=== PATIENT | male | born 1955 | race Caucasian/White ===

== ENCOUNTER 2022-02-23 17:41 | Inpatient (IN) | payer MEDICARE, OTHER ==
[2022-02-23] MEDS ORDERED: DUONEB 0.5-3 MG/3 ml Neb IH ONE ×4 (17:49→18:42)
[2022-02-23 18:33] LABS: INR 1.24 (0.8-3.0); PROTIME 12.9 SECONDS (9.4-12.5); PTT 31.3 SECONDS (25.1-36.5)
[2022-02-23 18:35] LABS: Absolute Neutrophil Ct (ANC) 17.65 x10^3/uL (1.4-6.9); Basophil (Absolute #) 0.04 x10^3/uL (0-0.4); Eosinophil (Absolute #) 0 x10^3/uL (0-0.5); Hematocrit 60.9 % (42-50); Hemoglobin 18.5 g/dL (12.5-18.0); Lymphocyte (Absolute #) 0.43 x10^3/uL (1.0-4.6); Lymphocytes % 2.2 % (24.0-44.0); Mean Cell Volume 88.8 fL (78-100); Mean Corpuscular Hgb Concent. 30.4 g/dL (32-36); Mean Platelet Volume 9.7 fL (7.5-11.0); Monocyte (Absolute #) 1.33 x10^3/uL (0.0-1.3); Monocytes % 6.8 % (0.0-12.0); Neutrophil % 90.3 % (36.0-66.0); Platelet Count 207 x10^3/uL (150-450); Red Blood Count 6.86 x10^6/uL (4.1-5.6); Red Cell Distribution Width 15.2 % (11.5-14.0); White Blood Count 19.5 x10^3/uL (4.0-10.5)
[2022-02-23] MEDS ORDERED: solu-MEDROL 125 MG, Sterile H2O 10 ml 2 ML IV ONE ×2 (18:38)
[2022-02-23 18:40] LABS: ALBUMIN 4.2 g/dL (3.5-5.0); ALKALINE PHOSPHATASE 113 U/L (38-126); ANION GAP 10.1 MEQ/L (5-15); BLOOD UREA NITROGEN 18 mg/dL (9-20); CHLORIDE 94 mmol/L (98-107); Calcium 9.3 mg/dL (8.4-10.2); Carbon Dioxide 31 mmol/L (22-30); Creatinine 1 1.01 mg/dL (0.66-1.25); EST GLOMERULAR FILTRATION RATE > 60.0 ML/MIN; Glucose 142 mg/dL (74-106); MAGNESIUM 1.8 mg/dL (1.6-2.3); NT PRO BNP 543 pg/mL (0-900); Potassium 4.7 mmol/L (3.5-5.1); SGOT/AST 37 U/L (17-59); SGPT/ALT 25 U/L (0-50); SODIUM 131 mmol/L (137-145); Total Protein 8.6 g/dL (6.3-8.2)
[2022-02-23] MEDS ORDERED: Sterile H2O 10 ml IJ ONE (18:40)
[2022-02-23] MEDS ORDERED: solu-MEDROL ONE (18:40)
[2022-02-23 18:53] LABS: INFLUENZA A NEGATIVE (NEGATIVE); INFLUENZA B NEGATIVE (NEGATIVE); RESPIRATORY SYNCTIAL VIRUS NEGATIVE (Negative); SARS-CoV-2 Xpert Express NEGATIVE (NEGATIVE)
[2022-02-23 18:55] LABS: A-aADO2 237; ABG HEMOGLOBIN 18.6; ABG POTASSIUM 4.6 (3.5-5.1); ARTERIAL BLD GAS O2 SATURATION 93.4 % (95-100); ARTERIAL BLOOD GAS BASE EXCESS 5.8 (-2.0-2.0); ARTERIAL BLOOD GAS FIO2 50 %; ARTERIAL BLOOD GAS PCO2 43 mmHg (35-45); ARTERIAL BLOOD GAS PO2 66 mmHg (75-100); ARTERIAL BLOOD GAS pH 7.46 (7.35-7.45); CARBOXYHEMOGLOBIN 2.2 % THgb (0.0-6.9); HCO3- 30.6 (22-28); HGB O2 SAT 91.1 g/dF (94-100); Methhemoglobin 0.3 % (1.4-1.5)
[2022-02-23 18:56] LABS: ABG SITE RIGHT RADIAL; ALLEN TEST OK? YES
[2022-02-23] MEDS ORDERED: HOLD METFORMIN PRODUCTS FOR 48 HOURS MC SCH (20:15)
--- NOTE | 2022-02-23 21:24 | ERPHSYRPT ---
- History of Present Illness Source: patient Exam Limitations: other (Poor historian) Patient Subjective Stated Complaint: PT HERE FOR INCREASE SOB FOR A COUPLE DAYS WORSE TODAY. PT IS OUT OF SOME OF HES MEDS, HE DOES NOT CURRENTLY HAVE A DR. HAYS FEVER Triage Nursing Assessment: PT WALKED IN , SOB UNABLE TO LAY DOWN, RESP LABORED, PURSED LIP , 2-3 WORD SENTENCES, SKIN W/D/P.BS DIMINSHED THROUGHOUT Physician History: 66 yo wm w cc of dyspnea x 1 month which is getting worse, Pt hypoxic upon arrival and neb tx/O2 therapy started. Pt smokes 1 ppd. He denies fever and states that his chronic cough is a little worse. Pt denies N/V/D/melena/channing tochezia. He also denies chest pain. Timing/Duration: other (1 month worse today) Activities at Onset: rest Severity of Dyspnea-Max: severe Severity of Dyspnea-Current: severe Possible Cause: occasional episodes Modifying Factors: Improves With: activity Associated Symptoms: denies symptoms, cough Allergies/Adverse Reactions: No Known Drug Allergies Allergy (Unverified 02/23/22 17:45) Home Medications: No Reportable Medications [No Reported Medications] 02/23/22 [History] Hx Tetanus, Diphtheria Vaccination/Date Given: No Hx Influenza Vaccination/Date Given: Yes Hx Pneumococcal Vaccination/Date Given: No Immunizations Up to Date: Yes Travel Risk - International Travel Have you traveled outside of the country in past 3 weeks: No - Coronavirus Screening Are you exhibiting any of the following symptoms?: Yes Symptoms: Cough: New Onset, Shortness of Breath Close contact with a COVID-19 positive Pt in past 14-21 Days: No - Vaccine Status Have you recieved a Covid-19 vaccination: Yes Sample Tailor: Unknown - Vaccination Dates Date of 2cond Vaccination (if applicable): 2020 Dates if Unknown: ? - Review of Systems Constitutional: No Symptoms, Lethargy, Malaise Eyes: No Symptoms Ears, Nose, & Throat: No Symptoms Respiratory: No Symptoms, Cough, Dyspnea, Dyspnea on Exertion (DEUTSCH) Cardiac: No Symptoms Abdominal/Gastrointestinal: No Symptoms Genitourinary Symptoms: No Symptoms Musculoskeletal: No Symptoms Skin: No Symptoms Neurological: No Symptoms Psychological: No Symptoms Endocrine: No Symptoms Hematologic/Lymphatic: No Symptoms Immunological/Allergic: No Symptoms - Past Medical History Pertinent Past Medical History: Yes Respiratory History: COPD Male Reproductive Disorders: Prostate Problems - Past Surgical History Past Surgical History: Yes - Social History Smoking Status: Current every day smoker Exposure to second hand smoke: Yes Drug Use: none Patient Lives Alone: No - Nursing Vital Signs Nursing Vital Signs: Initial Vital Signs Temperature 98.8 F 02/23/22 17:47 Pulse Rate 120 H 02/23/22 17:47 Respiratory Rate 34 H 02/23/22 17:47 Blood Pressure 124/85 02/23/22 17:47 O2 Sat by Pulse Oximetry 85 L 02/23/22 17:47 Pain Scale Pain Intensity 0 Tachy/tachypneic/hypoxic - Physical Exam General Appearance: moderate distress Eye Exam: PERRL/EOMI, eyes nml inspection Ears, Nose, Throat Exam: hearing grossly normal, normal ENT inspection, normal pharynx Neck Exam: normal inspection, non-tender, supple, full range of motion, No Brudzinski, No Kernig's, No meningismus Respiratory Exam: respiratory distress (Moderate), airway intact, diminished breath sounds, prolonged expirations, crackles/rales (Scattered wheezes and rales) Cardiovascular/Chest Exam: tachycardia, No murmur Abdominal/Gastrointestinal Exam: soft, normal bowel sounds, No tenderness Extremity Exam: non-tender, normal range of motion, normal inspection, normal capillary refill, no calf tenderness, no pedal edema Neurologic Exam: alert, oriented x 3, cooperative, 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, sensation nml Skin Exam: normal color, warm, dry Lymphatic Exam: No adenopathy SpO2 Interpretation: hypoxic (Hypoxic upon presentation) SpO2: 94 O2 Delivery: Nasal Cannula - Course Nursing assessment & vital signs reviewed: Yes EKG Interpreted by Me: RATE (Sinus tach/rate 115/Normal QT-QTc/Poor Rwave progression/Nonspecific ST-Twave changes/EKG#2 Sinus tach/Rate 106/Normal QT- QTc/Poor Rwave progression/Nonspecific ST-Twave changes/Both EKG's poor due to artifact) - Radiology Exams Chest X-ray Interpretation: Interpreted by me (CXR nothing acute) - CT Exams Chest CT Interpretation: Discussed w/radiologist (CTA of chest no PE/COPD/LLL pneumonia) Ordered Tests: Active Orders 24 hr Category Date Time Status Bedrest ROUTINE Activity 02/23/22 21:34 Active Code Status Order ROUTINE Care 02/23/22 21:34 Active EKG-ER Only STAT Care 02/23/22 17:45 Active IV Care Q6H Care 02/23/22 21:34 Active Intake and Output 09,13,18,21 Care 02/23/22 21:[address] in Observation ROUTINE Care 02/23/22 21:34 Active Reji Elizabeth, Apply ROUTINE Care 02/23/22 21:34 Active Vital Signs Q4H Care 02/23/22 21:34 Active Weight,Daily 0600 Care 02/23/22 21:34 Active NPO Diet 02/23/22 21:35 Active CHEST 1 VIEW (PORTABLE) Stat Exams 02/23/22 17:46 Taken CHEST WITH CONTRAST [CT] Stat Exams 02/23/22 19:39 Taken ABG [ARTERIAL BLOOD GASES] Stat Lab 02/23/22 18:50 Completed ARTERIAL BLOOD GASES AM.LAB Lab 02/24/22 04:00 Ordered BLOOD CULTURE Stat Lab 02/23/22 22:00 Received CBC AM.LAB Lab 02/24/22 04:00 Ordered CBC W DIFF Stat Lab 02/23/22 18:00 Completed CMP AM.LAB Lab 02/24/22 04:00 Ordered CMP Stat Lab 02/23/22 18:00 Completed D-DIMER QUANTITATIVE Stat Lab 02/23/22 18:55 Completed Lactic Acid Stat Lab 02/23/22 17:55 Completed MAGNESIUM Stat Lab 02/23/22 18:00 Completed NT PRO BNP Stat Lab 02/23/22 18:00 Completed PROTIME WITH INR Stat Lab 02/23/22 18:00 Completed PTT Stat Lab 02/23/22 18:00 Completed TROPONIN Q4H Lab 02/23/22 18:00 Completed TROPONIN Q4H Lab 02/23/22 21:55 Received TROPONIN Q4H Lab 02/24/22 02:00 Ordered BiPap/CPAP ROUTINE RT 02/23/22 19:37 Active Pulse Oximetry CONTINUOUS RT 02/23/22 21:35 Active Respiratory Therapy Consult ROUTINE RT 02/23/22 21:35 Active Transfer Order Routine Transfer 02/23/22 Ordered Medication Summary Generic Name Dose Route Start Last Admin Trade Name Freq PRN Reason Stop Dose Admin Albuterol/Ipratropium 3 ml 02/23/22 23:00 Ipratropium/Albuterol Sulfate 3 Ml Ampul.Neb 03/25/22 22:59 Q4HRT [facility] Enoxaparin Sodium 40 mg 02/24/22 10:00 Enoxaparin Sodium 40 Mg/0.4 Ml Syringe SQ 03/26/22 09:59 DAILY MANJULA Ceftriaxone Sodium/Dextrose 1 g in 50 mls @ 100 mls/hr 02/24/22 10:00 Rocephin 1 Gm-D5w 50 Ml Bag IV 02/27/22 09:59 Q24H10 MANJULA Azithromycin 500 mg in 250 mls @ 250 mls/hr 02/24/22 10:00 Zithromax 500 Mg/ 250 Ml Nacl Premix IV 03/26/22 09:59 Q24H10 MANJULA Discontinued Medications Generic Name Dose Route Start Last Admin Trade Name Freq PRN Reason Stop Dose Admin Albuterol/Ipratropium 3 ml 02/23/22 17:49 02/23/22 18:08 Ipratropium/Albuterol Sulfate 3 Ml Ampul.Neb 02/23/22 17:50 3 ml STAT ONE Administration Albuterol/Ipratropium Confirm 02/23/22 17:51 Ipratropium/Albuterol Sulfate 3 Ml Ampul.Neb Administered 02/23/22 17:52 Dose 3 ml IH .STK-MED ONE Albuterol/Ipratropium 3 ml 02/23/22 18:39 02/23/22 18:45 Ipratropium/Albuterol Sulfate 3 Ml Ampul.Neb 02/23/22 18:40 3 ml STAT ONE Administration Albuterol/Ipratropium Confirm 02/23/22 18:42 Ipratropium/Albuterol Sulfate 3 Ml Ampul.Neb Administered 02/23/22 18:43 Dose 3 ml IH .STK-MED ONE Methylprednisolone Sodium 0 mg 02/23/22 18:38 02/23/22 18:41 Succinate 125 mg/ Sterile IV 02/23/22 18:39 125 mg Water 2 ml STAT ONE Administration Ceftriaxone Sodium/Dextrose 1 g in 50 mls @ 100 mls/hr 02/23/22 21:30 02/23/22 22:17 Rocephin 1 Gm-D5w 50 Ml Bag IV 02/23/22 21:59 100 mls/hr STAT STA 100 mls/hr Administration Methylprednisolone Sodium Succinate Confirm 02/23/22 18:40 Methylprednis Sod Succ 125 Mg/2 Ml Vial Administered 02/23/22 18:41 Dose 125 mg .ROUTE .[employer] ONE Sterile Water Confirm 02/23/22 18:40 Water For Injection,Sterile 10 Ml Vial Administered 02/23/22 18:41 Dose 10 ml IJ .STK-MED ONE Lab/Rad Data: Laboratory Result Diagrams 02/23/22 18:00 02/23/22 18:00 Laboratory Results 02/23/22 02/23/22 02/23/22 Range/Units 18:55 18:50 18:00 WBC (4.0-10.5) x10^3/uL RBC (4.1-5.6) x10^6/uL Hgb (12.5-18.0) g/dL Hct (42-50) % MCV (78-100) fL MCH (26-32) pg MCHC (32-36) g/dL RDW (11.5-14.0) % Plt Count (150-450) x10^3/uL MPV (7.5-11.0) fL Gran % (36.0-66.0) % Immature Gran % (Auto) (0.00-0.4) % Nucleat RBC Rel Count (0.00-0.1) % Eos # (Auto) (0-0.5) x10^3/uL Immature Gran # (Auto) (0.00-0.03) x10^3u/L Absolute Lymphs (auto) (1.0-4.6) x10^3/uL Absolute Monos (auto) (0.0-1.3) x10^3/uL Absolute Nucleated RBC (0.00-0.01) x10^3u/L Lymphocytes % (24.0-44.0) % Monocytes % (0.0-12.0) % Eosinophils % (0.00-5.0) % Basophils % (0.0-0.4) % Absolute Granulocytes (1.4-6.9) x10^3/uL Basophils # (0-0.4) x10^3/uL PT (9.4-12.5) SECONDS INR (0.8-3.0) APTT (25.1-36.5) SECONDS D-Dimer 1.26 H* (0.0-0.50) mg/L Puncture Site RIGHT RADIAL pCO2 43 (35-45) mmHg pO2 66 L (75-100) mmHg Base Excess 5.8 H (-2.0-2.0) O2 Saturation 91.1 L (94-100) g/dF ABG pH 7.46 H (7.35-7.45) ABG HCO3 30.6 H* (22-28) ABG O2 Sat (Measured) 93.4 L (95-100) % Mikle Test YES A-a Gradient 237 a/A Ratio 0.22 Hemoglobin 18.6 Carboxyhemoglobin 2.2 (0.0-6.9) % THgb Methemoglobin 0.3 L (1.4-1.5) % Temperature 37.0 C POC O2 Flow Rate 50 % Sodium (137-145) mmol/L Potassium 4.6 (3.5-5.1) mmol/L Chloride (98-107) mmol/L Carbon Dioxide (22-30) mmol/L Anion Gap (5-15) MEQ/L BUN (9-20) mg/dL Creatinine (0.66-1.25) mg/dL Estimated GFR ML/MIN Glucose (74-106) mg/dL Lactic Acid (0.4-2.0) Calcium (8.4-10.2) mg/dL Magnesium (1.6-2.3) mg/dL Total Bilirubin (0.2-1.3) mg/dL AST (17-59) U/L ALT (0-50) U/L Alkaline Phosphatase (38-126) U/L Troponin I (0.000-0.034) ng/mL NT-Pro-B Natriuret Pep (0-900) pg/mL Serum Total Protein (6.3-8.2) g/dL Albumin (3.5-5.0) g/dL Influenza Type A Ag NEGATIVE (NEGATIVE) Influenza Type B Ag NEGATIVE (NEGATIVE) RSV (PCR) NEGATIVE (Negative) SARS-CoV-2 (PCR) NEGATIVE (NEGATIVE) Slides for Path Review 02/23/22 02/23/22 02/23/22 Range/Units 18:00 18:00 18:00 WBC (4.0-10.5) x10^3/uL RBC (4.1-5.6) x10^6/uL Hgb (12.5-18.0) g/dL Hct (42-50) % MCV (78-100) fL MCH (26-32) pg MCHC (32-36) g/dL RDW (11.5-14.0) % Plt Count (150-450) x10^3/uL MPV (7.5-11.0) fL Gran % (36.0-66.0) % Immature Gran % (Auto) (0.00-0.4) % Nucleat RBC Rel Count (0.00-0.1) % Eos # (Auto) (0-0.5) x10^3/uL Immature Gran # (Auto) (0.00-0.03) x10^3u/L Absolute Lymphs (auto) (1.0-4.6) x10^3/uL Absolute Monos (auto) (0.0-1.3) x10^3/uL Absolute Nucleated RBC (0.00-0.01) x10^3u/L Lymphocytes % (24.0-44.0) % Monocytes % (0.0-12.0) % Eosinophils % (0.00-5.0) % Basophils % (0.0-0.4) % Absolute Granulocytes (1.4-6.9) x10^3/uL Basophils # (0-0.4) x10^3/uL PT 12.9 H (9.4-12.5) SECONDS INR 1.24 (0.8-3.0) APTT 31.3 (25.1-36.5) SECONDS D-Dimer (0.0-0.50) mg/L Puncture Site pCO2 (35-45) mmHg pO2 (75-100) mmHg Base Excess (-2.0-2.0) O2 Saturation (94-100) g/dF ABG pH (7.35-7.45) ABG HCO3 (22-28) ABG O2 Sat (Measured) (95-100) % Mikel Test A-a Gradient a/A Ratio Hemoglobin Carboxyhemoglobin (0.0-6.9) % THgb Methemoglobin (1.4-1.5) % Temperature C POC O2 Flow Rate % Sodium 131 L (137-145) mmol/L Potassium 4.7 (3.5-5.1) mmol/L Chloride 94 L (98-107) mmol/L Carbon Dioxide 31 H (22-30) mmol/L Anion Gap 10.1 (5-15) MEQ/L BUN 18 (9-20) mg/dL Creatinine 1.01 (0.66-1.25) mg/dL Estimated GFR > 60.0 ML/MIN Glucose 142 H (74-106) mg/dL Lactic Acid (0.4-2.0) Calcium 9.3 (8.4-10.2) mg/dL Magnesium 1.8 (1.6-2.3) mg/dL Total Bilirubin 1.30 (0.2-1.3) mg/dL AST 37 (17-59) U/L ALT 25 (0-50) U/L Alkaline Phosphatase 113 (38-126) U/L Troponin I < 0.012 (0.000-0.034) ng/mL NT-Pro-B Natriuret Pep 543 (0-900) pg/mL Serum Total Protein 8.6 H (6.3-8.2) g/dL Albumin 4.2 (3.5-5.0) g/dL Influenza Type A Ag (NEGATIVE) Influenza Type B Ag (NEGATIVE) RSV (PCR) (Negative) SARS-CoV-2 (PCR) (NEGATIVE) Slides for Path Review 02/23/22 02/23/22 Range/Units 18:00 17:55 WBC 19.5 H (4.0-10.5) x10^3/uL RBC 6.86 H (4.1-5.6) x10^6/uL Hgb 18.5 H (12.5-18.0) g/dL Hct 60.9 H (42-50) % MCV 88.8 (78-100) fL MCH 27.0 (26-32) pg MCHC 30.4 L (32-36) g/dL RDW 15.2 H (11.5-14.0) % Plt Count 207 (150-450) x10^3/uL MPV 9.7 (7.5-11.0) fL Gran % 90.3 H (36.0-66.0) % Immature Gran % (Auto) 0.5 H (0.00-0.4) % Nucleat RBC Rel Count 0.0 (0.00-0.1) % Eos # (Auto) 0 (0-0.5) x10^3/uL Immature Gran # (Auto) 0.09 H (0.00-0.03) x10^3u/L Absolute Lymphs (auto) 0.43 L (1.0-4.6) x10^3/uL Absolute Monos (auto) 1.33 H (0.0-1.3) x10^3/uL Absolute Nucleated RBC 0.00 (0.00-0.01) x10^3u/L Lymphocytes % 2.2 L (24.0-44.0) % Monocytes % 6.8 (0.0-12.0) % Eosinophils % 0.0 (0.00-5.0) % Basophils % 0.2 (0.0-0.4) % Absolute Granulocytes 17.65 H (1.4-6.9) x10^3/uL Basophils # 0.04 (0-0.4) x10^3/uL PT (9.4-12.5) SECONDS INR (0.8-3.0) APTT (25.1-36.5) SECONDS D-Dimer (0.0-0.50) mg/L Puncture Site pCO2 (35-45) mmHg pO2 (75-100) mmHg Base Excess (-2.0-2.0) O2 Saturation (94-100) g/dF ABG pH (7.35-7.45) ABG HCO3 (22-28) ABG O2 Sat (Measured) (95-100) % Mikel Test A-a Gradient a/A Ratio Hemoglobin Carboxyhemoglobin (0.0-6.9) % THgb Methemoglobin (1.4-1.5) % Temperature C POC O2 Flow Rate % Sodium (137-145) mmol/L Potassium (3.5-5.1) mmol/L Chloride (98-107) mmol/L Carbon Dioxide (22-30) mmol/L Anion Gap (5-15) MEQ/L BUN (9-20) mg/dL Creatinine (0.66-1.25) mg/dL Estimated GFR ML/MIN Glucose (74-106) mg/dL Lactic Acid 1.8 (0.4-2.0) Calcium (8.4-10.2) mg/dL Magnesium (1.6-2.3) mg/dL Total Bilirubin (0.2-1.3) mg/dL AST (17-59) U/L ALT (0-50) U/L Alkaline Phosphatase (38-126) U/L Troponin I (0.000-0.034) ng/mL NT-Pro-B Natriuret Pep (0-900) pg/mL Serum Total Protein (6.3-8.2) g/dL Albumin (3.5-5.0) g/dL Influenza Type A Ag (NEGATIVE) Influenza Type B Ag (NEGATIVE) RSV (PCR) (Negative) SARS-CoV-2 (PCR) (NEGATIVE) Slides for Path Review YES - Progress Progress: improved Progress Note: 02/23/22 22:26 Duoneb x2 125mg IV Solumedrol Pt eventually placed on Bipap w improvement in respiratory status 02/23/22 22:27 Rocephin 1gm IV Discussed with Dr.: Marcos Will see patient in: hospital (observation) Counseled pt/family regarding: lab results, diagnosis, need for follow-up, rad results - Departure Departure Disposition: Observation Clinical Impression: Pneumonia Condition: Stable Critical Care Time: Yes Critical Care Time(excluding separately billable procedures): Critical 30-74 mins Referrals: TWILA MOY MD [Primary Care Provider] - Follow up/PCP as directed
[2022-02-23] MEDS ORDERED: ROCEPHIN 1 Gm-D5w 50 ml Bag** 1 G/50 ML IVPB IV STA (21:30)
[2022-02-23] MEDS ORDERED: ROCEPHIN 1 Gm-D5w 50 ml Bag** 1 G/50 ML IVPB IV ONE (22:12)
[2022-02-23 22:21] LABS: Slide Review 1 YES
[2022-02-23] MEDS ORDERED: DUONEB 0.5-3 MG/3 ml Neb IH SCH (23:00)
[2022-02-24] MEDS ORDERED: DUONEB 0.5-3 MG/3 ml Neb IH ONE (00:47)
[2022-02-24] MEDS: DUONEB 0.5-3 MG/3 ml Neb IH SCH ×4 (01:35→18:48)
[2022-02-24 02:47] LABS: Hematocrit 58.2 % (42-50); Hemoglobin 17.7 g/dL (12.5-18.0); Mean Cell Volume 87.7 fL (78-100); Mean Corpuscular Hemoglobin 26.7 pg (26-32); Mean Corpuscular Hgb Concent. 30.4 g/dL (32-36); Platelet Count 191 x10^3/uL (150-450); Red Blood Count 6.64 x10^6/uL (4.1-5.6); Red Cell Distribution Width 14.6 % (11.5-14.0); White Blood Count 16.5 x10^3/uL (4.0-10.5)
[2022-02-24 03:08] LABS: ALBUMIN 3.9 g/dL (3.5-5.0); ALKALINE PHOSPHATASE 100 U/L (38-126); ANION GAP 10.3 MEQ/L (5-15); BLOOD UREA NITROGEN 23 mg/dL (9-20); CHLORIDE 94 mmol/L (98-107); Calcium 9.2 mg/dL (8.4-10.2); Carbon Dioxide 30 mmol/L (22-30); Creatinine 1 0.95 mg/dL (0.66-1.25); EST GLOMERULAR FILTRATION RATE > 60.0 ML/MIN; Glucose 151 mg/dL (74-106); SGOT/AST 23 U/L (17-59); SGPT/ALT 24 U/L (0-50); SODIUM 130 mmol/L (137-145); Total Protein 8.1 g/dL (6.3-8.2)
[2022-02-24 05:49] LABS: A-aADO2 305; ABG HEMOGLOBIN 18.3; ABG POTASSIUM 4.6 (3.5-5.1); ABG SITE RIGHT RADIAL; ALLEN TEST OK? YES; ARTERIAL BLD GAS O2 SATURATION 98.8 % (95-100); ARTERIAL BLOOD GAS BASE EXCESS 5.2 (-2.0-2.0); ARTERIAL BLOOD GAS FIO2 70 %; ARTERIAL BLOOD GAS PCO2 55 mmHg (35-45); ARTERIAL BLOOD GAS PO2 125 mmHg (75-100); ARTERIAL BLOOD GAS pH 7.38 (7.35-7.45); HCO3- 32.5 (22-28); HGB O2 SAT 97.6 g/dF (94-100); Methhemoglobin 0.2 % (1.4-1.5)
--- NOTE | 2022-02-24 08:43 | XRAY ---
Indication: Dyspnea/short of breath. Comparison: December 24, 2012 Portable chest again hyperinflated with scattered tiny calcified granulomas. New left mid to lower lung interstitial alveolar opacities without consolidation/large effusion. Heart is not enlarged. Bony thorax intact. Comment: Left lung finding not reported by interpreting ER clinician. Left lung finding was reported to ordering clinician on same day CT PE exam.
--- NOTE | 2022-02-24 08:47 | XRAY ---
Indication: Short of breath. Dyspnea. Elevated d-dimer. Pulmonary embolus. Multiple contiguous images obtained through the chest using 100 cc Isovue 370 contrast and PE protocol. Comparison: None Good opacification of the pulmonary arteries. However mild respiration artifact limits evaluation of the more distal lobar and segmental segments. No pulmonary embolus. Heart not enlarged. Aorta is mildly arteriosclerotic without aneurysm/dissection. Small mediastinal and bilateral hilar calcified nodes. No pathologic lymphadenopathy. Lungs demonstrates moderate diffuse pulmonary emphysema with a few tiny scattered bilateral calcific granulomas. Left lower lobe and lesser degree lingula demonstrates interstitial alveolar opacities without effusion. Bony thorax intact. Limited upper abdomen demonstrates tiny hepatic/splenic calcified granulomas. Impression: 1. Respiration artifact. No obvious pulmonary embolus. 2. Lingula and left lower lobe pneumonia. 3. Chronic findings including pulmonary emphysema, arteriosclerotic disease, and old granulomatous disease.
[2022-02-24] MEDS ORDERED: FLUZONE HIGH-DOSE QUAD 2022-23 IM ONE ×2 (10:00→17:00)
[2022-02-24] MEDS: Zithromax 500 MG/ 250 ML NaCl Premix 500 MG/250 ML IVPB IV SCH (10:38)
--- NOTE | 2022-02-24 12:47 | PCM.HP ---
History of Present Illness - Chief Complaint Chief Complaint: severe shortness of breath for 2 days History of Present Illness: is a 66 year old male.cc of dyspnea x 1 month which is getting worse, Pt hypoxic upon arrival and neb tx/O2 therapy started. Pt smokes 1 ppd. He denies fever and states that his chronic cough is a little worse. Pt denies N/V/D/melena/hematochezia. He also denies chest pain. Timing/Duration: other (1 month worse today) Activities at Onset: rest Severity of Dyspnea-Max: severe Severity of Dyspnea-Current: severe Possible Cause: occasional episodes Modifying Factors: Improves With: activity Associated Symptoms: denies symptoms, cough - Review of Systems Constitutional: No Fever, No Chills Eyes: No Symptoms Ears, Nose, & Throat: No Symptoms Respiratory: Cough, Short Of Breath, Wheezing Cardiac: No Chest Pain, No Edema, No Syncope Abdominal/Gastrointestinal: No Abdominal Pain, No Nausea, No Vomiting, No Diarrh ea Genitourinary Symptoms: No Dysuria Musculoskeletal: No Back Pain, No Neck Pain Skin: No Rash Neurological: No Dizziness, No Focal Weakness, No Sensory Changes Psychological: No Symptoms Endocrine: No Symptoms Hematologic/Lymphatic: No Symptoms Immunological/Allergic: No Symptoms Medications & Allergies Home Medications: Home Medication List No Reportable Medications [No Reported Medications] 02/23/22 [History Confirmed 02/23/22] Allergies/Adverse Reactions: Allergies Allergy/AdvReac Type Severity Reaction Status Date / Time diazepam [From Valium] AdvReac Verified 02/24/22 00:16 - Past Medical History Past Medical History: Yes Neurological History: No Pertinent History ENT History: No Pertinent History Cardiac History: Myocardial Infarction ([place]) Respiratory History: COPD Endocrine Medical History: Diabetes Type II Musculoskelatal History: No Pertinent History GI Medical History: No Pertinent History History: No Pertinent History Pyscho-Social History: No Pertinent History Male Reproductive Disorders: Prostate Problems - Past Surgical History Past Surgical History: Yes Neuro Surgical History: No Pertinent History Cardiac History: No Pertinent History Respiratory Surgery: No Pertinent History GI Surgical History: No Pertinent History Genitourinary Surgical Hx: No Pertinent History Musculskeletal Surgical Hx: No Pertinent History Male Surgical History: No Pertinent History - Social History Smoking Status: Current every day smoker Exposure to second hand smoke: Yes Alcohol: None Drug Use: none - Physical Exam Vital Signs: Vital Signs - 24 hr Temp Pulse Resp BP Pulse Ox 02/24/22 11:53 97.7 F 97 H 24 135/70 100 02/24/22 07:16 97.7 F 78 16 130/74 92 L 02/24/22 05:45 91 H 31 H 100 02/24/22 03:36 97.0 F 98 H 35 H 159/80 100 02/24/22 01:43 89 24 96 02/24/22 01:35 96 02/23/22 23:57 97.4 F 93 H 24 127/69 95 02/23/22 22:28 94 L 02/23/22 21:35 102 H 138/73 98 02/23/22 21:00 95 H 26 H 136/73 95 02/23/22 20:00 109 H 28 H 139/92 94 L 02/23/22 19:23 107 H 27 H 138/78 93 L 02/23/22 18:51 114 H 32 H 134/108 92 L 02/23/22 18:45 108 H 28 H 92 L 02/23/22 18:09 113 H 32 H 96 02/23/22 17:50 32 H 95 02/23/22 17:47 98.8 F 120 H 34 H 124/85 85 L General Appearance: no apparent distress, alert Neurologic Exam: alert, oriented x 3, cooperative, normal mood/affect, nml cerebellar function, nml station & gait, sensation nml, No motor deficits Eye Exam: PERRL/EOMI, eyes nml inspection Ears, Nose, Throat Exam: normal ENT inspection, TMs normal, pharynx normal, moist mucous membranes Neck Exam: normal inspection, non-tender, supple, full range of motion Respiratory Exam: diminished breath sounds, crackles/rales, rhonchi, wheezing, No respiratory distress Cardiovascular Exam: regular rate/rhythm, normal heart sounds, normal peripheral pulses Gastrointestinal/Abdomen Exam: soft, normal bowel sounds, No tenderness, No mass Back Exam: normal inspection, normal range of motion, No CVA tenderness, No vertebral tenderness Extremity Exam: normal inspection, normal range of motion, pelvis stable Skin Exam: normal color, warm, dry, No rash Lymphatic Exam: No adenopathy Results - Labs Lab/Micro Results: Lab Results-Last 24 Hours 02/23/22 02/23/22 02/23/22 Range/Units 17:55 18:00 18:00 WBC 19.5 H (4.0-10.5) x10^3/uL RBC 6.86 H (4.1-5.6) x10^6/uL Hgb 18.5 H (12.5-18.0) g/dL Hct 60.9 H (42-50) % MCV 88.8 (78-100) fL MCH 27.0 (26-32) pg MCHC 30.4 L (32-36) g/dL RDW 15.2 H (11.5-14.0) % Plt Count 207 (150-450) x10^3/uL MPV 9.7 (7.5-11.0) fL Gran % 90.3 H (36.0-66.0) % Immature Gran % (Auto) 0.5 H (0.00-0.4) % Nucleat RBC Rel Count 0.0 (0.00-0.1) % Eos # (Auto) 0 (0-0.5) x10^3/uL Immature Gran # (Auto) 0.09 H (0.00-0.03) x10^3u/L Absolute Lymphs (auto) 0.43 L (1.0-4.6) x10^3/uL Absolute Monos (auto) 1.33 H (0.0-1.3) x10^3/uL Absolute Nucleated RBC 0.00 (0.00-0.01) x10^3u/L Lymphocytes % 2.2 L (24.0-44.0) % Monocytes % 6.8 (0.0-12.0) % Eosinophils % 0.0 (0.00-5.0) % Basophils % 0.2 (0.0-0.4) % Absolute Granulocytes 17.65 H (1.4-6.9) x10^3/uL Basophils # 0.04 (0-0.4) x10^3/uL PT (9.4-12.5) SECONDS INR (0.8-3.0) APTT (25.1-36.5) SECONDS D-Dimer (0.0-0.50) mg/L Puncture Site pCO2 (35-45) mmHg pO2 (75-100) mmHg Base Excess (-2.0-2.0) O2 Saturation (94-100) g/dF ABG pH (7.35-7.45) ABG HCO3 (22-28) ABG O2 Sat (Measured) (95-100) % Mikel Test A-a Gradient a/A Ratio Hemoglobin Carboxyhemoglobin (0.0-6.9) % THgb Methemoglobin (1.4-1.5) % Temperature C POC O2 Flow Rate % Sodium 131 L (137-145) mmol/L Potassium 4.7 (3.5-5.1) mmol/L Chloride 94 L (98-107) mmol/L Carbon Dioxide 31 H (22-30) mmol/L Anion Gap 10.1 (5-15) MEQ/L BUN 18 (9-20) mg/dL Creatinine 1.01 (0.66-1.25) mg/dL Estimated GFR > 60.0 ML/MIN Glucose 142 H (74-106) mg/dL Lactic Acid 1.8 (0.4-2.0) Calcium 9.3 (8.4-10.2) mg/dL Magnesium 1.8 (1.6-2.3) mg/dL Total Bilirubin 1.30 (0.2-1.3) mg/dL AST 37 (17-59) U/L ALT 25 (0-50) U/L Alkaline Phosphatase 113 (38-126) U/L Troponin I (0.000-0.034) ng/mL NT-Pro-B Natriuret Pep 543 (0-900) pg/mL Serum Total Protein 8.6 H (6.3-8.2) g/dL Albumin 4.2 (3.5-5.0) g/dL Influenza Type A Ag (NEGATIVE) Influenza Type B Ag (NEGATIVE) RSV (PCR) (Negative) SARS-CoV-2 (PCR) (NEGATIVE) Slides for Path Review YES 02/23/22 02/23/22 02/23/22 Range/Units 18:00 18:00 18:00 WBC (4.0-10.5) x10^3/uL RBC (4.1-5.6) x10^6/uL Hgb (12.5-18.0) g/dL Hct (42-50) % MCV (78-100) fL MCH (26-32) pg MCHC (32-36) g/dL RDW (11.5-14.0) % Plt Count (150-450) x10^3/uL MPV (7.5-11.0) fL Gran % (36.0-66.0) % Immature Gran % (Auto) (0.00-0.4) % Nucleat RBC Rel Count (0.00-0.1) % Eos # (Auto) (0-0.5) x10^3/uL Immature Gran # (Auto) (0.00-0.03) x10^3u/L Absolute Lymphs (auto) (1.0-4.6) x10^3/uL Absolute Monos (auto) (0.0-1.3) x10^3/uL Absolute Nucleated RBC (0.00-0.01) x10^3u/L Lymphocytes % (24.0-44.0) % Monocytes % (0.0-12.0) % Eosinophils % (0.00-5.0) % Basophils % (0.0-0.4) % Absolute Granulocytes (1.4-6.9) x10^3/uL Basophils # (0-0.4) x10^3/uL PT 12.9 H (9.4-12.5) SECONDS INR 1.24 (0.8-3.0) APTT 31.3 (25.1-36.5) SECONDS D-Dimer (0.0-0.50) mg/L Puncture Site pCO2 (35-45) mmHg pO2 (75-100) mmHg Base Excess (-2.0-2.0) O2 Saturation (94-100) g/dF ABG pH (7.35-7.45) ABG HCO3 (22-28) ABG O2 Sat (Measured) (95-100) % Mikel Test A-a Gradient a/A Ratio Hemoglobin Carboxyhemoglobin (0.0-6.9) % THgb Methemoglobin (1.4-1.5) % Temperature C POC O2 Flow Rate % Sodium (137-145) mmol/L Potassium (3.5-5.1) mmol/L Chloride (98-107) mmol/L Carbon Dioxide (22-30) mmol/L Anion Gap (5-15) MEQ/L BUN (9-20) mg/dL Creatinine (0.66-1.25) mg/dL Estimated GFR ML/MIN Glucose (74-106) mg/dL Lactic Acid (0.4-2.0) Calcium (8.4-10.2) mg/dL Magnesium (1.6-2.3) mg/dL Total Bilirubin (0.2-1.3) mg/dL AST (17-59) U/L ALT (0-50) U/L Alkaline Phosphatase (38-126) U/L Troponin I < 0.012 (0.000-0.034) ng/mL NT-Pro-B Natriuret Pep (0-900) pg/mL Serum Total Protein (6.3-8.2) g/dL Albumin (3.5-5.0) g/dL Influenza Type A Ag NEGATIVE (NEGATIVE) Influenza Type B Ag NEGATIVE (NEGATIVE) RSV (PCR) NEGATIVE (Negative) SARS-CoV-2 (PCR) NEGATIVE (NEGATIVE) Slides for Path Review 02/23/22 02/23/22 02/23/22 Range/Units 18:50 18:55 21:55 WBC (4.0-10.5) x10^3/uL RBC (4.1-5.6) x10^6/uL Hgb (12.5-18.0) g/dL Hct (42-50) % MCV (78-100) fL MCH (26-32) pg MCHC (32-36) g/dL RDW (11.5-14.0) % Plt Count (150-450) x10^3/uL MPV (7.5-11.0) fL Gran % (36.0-66.0) % Immature Gran % (Auto) (0.00-0.4) % Nucleat RBC Rel Count (0.00-0.1) % Eos # (Auto) (0-0.5) x10^3/uL Immature Gran # (Auto) (0.00-0.03) x10^3u/L Absolute Lymphs (auto) (1.0-4.6) x10^3/uL Absolute Monos (auto) (0.0-1.3) x10^3/uL Absolute Nucleated RBC (0.00-0.01) x10^3u/L Lymphocytes % (24.0-44.0) % Monocytes % (0.0-12.0) % Eosinophils % (0.00-5.0) % Basophils % (0.0-0.4) % Absolute Granulocytes (1.4-6.9) x10^3/uL Basophils # (0-0.4) x10^3/uL PT (9.4-12.5) SECONDS INR (0.8-3.0) APTT (25.1-36.5) SECONDS D-Dimer 1.26 H* (0.0-0.50) mg/L Puncture Site RIGHT RADIAL pCO2 43 (35-45) mmHg pO2 66 L (75-100) mmHg Base Excess 5.8 H (-2.0-2.0) O2 Saturation 91.1 L (94-100) g/dF ABG pH 7.46 H (7.35-7.45) ABG HCO3 30.6 H* (22-28) ABG O2 Sat (Measured) 93.4 L (95-100) % Mikel Test YES A-a Gradient 237 a/A Ratio 0.22 Hemoglobin 18.6 Carboxyhemoglobin 2.2 (0.0-6.9) % THgb Methemoglobin 0.3 L (1.4-1.5) % Temperature 37.0 C POC O2 Flow Rate 50 % Sodium (137-145) mmol/L Potassium 4.6 (3.5-5.1) mmol/L Chloride (98-107) mmol/L Carbon Dioxide (22-30) mmol/L Anion Gap (5-15) MEQ/L BUN (9-20) mg/dL Creatinine (0.66-1.25) mg/dL Estimated GFR ML/MIN Glucose (74-106) mg/dL Lactic Acid (0.4-2.0) Calcium (8.4-10.2) mg/dL Magnesium (1.6-2.3) mg/dL Total Bilirubin (0.2-1.3) mg/dL AST (17-59) U/L ALT (0-50) U/L Alkaline Phosphatase (38-126) U/L Troponin I < 0.012 (0.000-0.034) ng/mL NT-Pro-B Natriuret Pep (0-900) pg/mL Serum Total Protein (6.3-8.2) g/dL Albumin (3.5-5.0) g/dL Influenza Type A Ag (NEGATIVE) Influenza Type B Ag (NEGATIVE) RSV (PCR) (Negative) SARS-CoV-2 (PCR) (NEGATIVE) Slides for Path Review 02/24/22 02/24/22 02/24/22 Range/Units 02:35 02:35 02:35 WBC 16.5 H (4.0-10.5) x10^3/uL RBC 6.64 H (4.1-5.6) x10^6/uL Hgb 17.7 (12.5-18.0) g/dL Hct 58.2 H (42-50) % MCV 87.7 (78-100) fL MCH 26.7 (26-32) pg MCHC 30.4 L (32-36) g/dL RDW 14.6 H (11.5-14.0) % Plt Count 191 (150-450) x10^3/uL MPV 10.0 (7.5-11.0) fL Gran % (36.0-66.0) % Immature Gran % (Auto) (0.00-0.4) % Nucleat RBC Rel Count (0.00-0.1) % Eos # (Auto) (0-0.5) x10^3/uL Immature Gran # (Auto) (0.00-0.03) x10^3u/L Absolute Lymphs (auto) (1.0-4.6) x10^3/uL Absolute Monos (auto) (0.0-1.3) x10^3/uL Absolute Nucleated RBC (0.00-0.01) x10^3u/L Lymphocytes % (24.0-44.0) % Monocytes % (0.0-12.0) % Eosinophils % (0.00-5.0) % Basophils % (0.0-0.4) % Absolute Granulocytes (1.4-6.9) x10^3/uL Basophils # (0-0.4) x10^3/uL PT (9.4-12.5) SECONDS INR (0.8-3.0) APTT (25.1-36.5) SECONDS D-Dimer (0.0-0.50) mg/L Puncture Site pCO2 (35-45) mmHg pO2 (75-100) mmHg Base Excess (-2.0-2.0) O2 Saturation (94-100) g/dF ABG pH (7.35-7.45) ABG HCO3 (22-28) ABG O2 Sat (Measured) (95-100) % Mikel Test A-a Gradient a/A Ratio Hemoglobin Carboxyhemoglobin (0.0-6.9) % THgb Methemoglobin (1.4-1.5) % Temperature C POC O2 Flow Rate % Sodium 130 L (137-145) mmol/L Potassium 5.0 (3.5-5.1) mmol/L Chloride 94 L (98-107) mmol/L Carbon Dioxide 30 (22-30) mmol/L Anion Gap 10.3 (5-15) MEQ/L BUN 23 H (9-20) mg/dL Creatinine 0.95 (0.66-1.25) mg/dL Estimated GFR > 60.0 ML/MIN Glucose 151 H (74-106) mg/dL Lactic Acid (0.4-2.0) Calcium 9.2 (8.4-10.2) mg/dL Magnesium (1.6-2.3) mg/dL Total Bilirubin 0.90 (0.2-1.3) mg/dL AST 23 (17-59) U/L ALT 24 (0-50) U/L Alkaline Phosphatase 100 (38-126) U/L Troponin I < 0.012 (0.000-0.034) ng/mL NT-Pro-B Natriuret Pep (0-900) pg/mL Serum Total Protein 8.1 (6.3-8.2) g/dL Albumin 3.9 (3.5-5.0) g/dL Influenza Type A Ag (NEGATIVE) Influenza Type B Ag (NEGATIVE) RSV (PCR) (Negative) SARS-CoV-2 (PCR) (NEGATIVE) Slides for Path Review 02/24/22 Range/Units 05:45 WBC (4.0-10.5) x10^3/uL RBC (4.1-5.6) x10^6/uL Hgb (12.5-18.0) g/dL Hct (42-50) % MCV (78-100) fL MCH (26-32) pg MCHC (32-36) g/dL RDW (11.5-14.0) % Plt Count (150-450) x10^3/uL MPV (7.5-11.0) fL Gran % (36.0-66.0) % Immature Gran % (Auto) (0.00-0.4) % Nucleat RBC Rel Count (0.00-0.1) % Eos # (Auto) (0-0.5) x10^3/uL Immature Gran # (Auto) (0.00-0.03) x10^3u/L Absolute Lymphs (auto) (1.0-4.6) x10^3/uL Absolute Monos (auto) (0.0-1.3) x10^3/uL Absolute Nucleated RBC (0.00-0.01) x10^3u/L Lymphocytes % (24.0-44.0) % Monocytes % (0.0-12.0) % Eosinophils % (0.00-5.0) % Basophils % (0.0-0.4) % Absolute Granulocytes (1.4-6.9) x10^3/uL Basophils # (0-0.4) x10^3/uL PT (9.4-12.5) SECONDS INR (0.8-3.0) APTT (25.1-36.5) SECONDS D-Dimer (0.0-0.50) mg/L Puncture Site RIGHT RADIAL pCO2 55 H (35-45) mmHg pO2 125 H* (75-100) mmHg Base Excess 5.2 H (-2.0-2.0) O2 Saturation 97.6 (94-100) g/dF ABG pH 7.38 (7.35-7.45) ABG HCO3 32.5 H* (22-28) ABG O2 Sat (Measured) 98.8 (95-100) % Mikel Test YES A-a Gradient 305 a/A Ratio 0.29 Hemoglobin 18.3 Carboxyhemoglobin 1.0 (0.0-6.9) % THgb Methemoglobin 0.2 L (1.4-1.5) % Temperature 37.0 C POC O2 Flow Rate 70 % Sodium (137-145) mmol/L Potassium 4.6 (3.5-5.1) mmol/L Chloride (98-107) mmol/L Carbon Dioxide (22-30) mmol/L Anion Gap (5-15) MEQ/L BUN (9-20) mg/dL Creatinine (0.66-1.25) mg/dL Estimated GFR ML/MIN Glucose (74-106) mg/dL Lactic Acid (0.4-2.0) Calcium (8.4-10.2) mg/dL Magnesium (1.6-2.3) mg/dL Total Bilirubin (0.2-1.3) mg/dL AST (17-59) U/L ALT (0-50) U/L Alkaline Phosphatase (38-126) U/L Troponin I (0.000-0.034) ng/mL NT-Pro-B Natriuret Pep (0-900) pg/mL Serum Total Protein (6.3-8.2) g/dL Albumin (3.5-5.0) g/dL Influenza Type A Ag (NEGATIVE) Influenza Type B Ag (NEGATIVE) RSV (PCR) (Negative) SARS-CoV-2 (PCR) (NEGATIVE) Slides for Path Review - Radiology Impressions Radiology Exams & Impressions: Radiology Procedures Category Date Time Status CHEST 1 VIEW (PORTABLE) Stat Exams 02/23/22 17:46 Completed CHEST WITH CONTRAST [CT] Stat Exams 02/23/22 19:[address]/CHEST WITH CONTRAST Indication: Short of breath. Dyspnea. Elevated d-dimer. Pulmonary embolus. Multiple contiguous images obtained through the chest using 100 cc Isovue 370 contrast and PE protocol. Comparison: None Good opacification of the pulmonary arteries. However mild respiration artifact limits evaluation of the more distal lobar and segmental segments. No pulmonary embolus. Heart not enlarged. Aorta is mildly arteriosclerotic without aneurysm/dissection. Small mediastinal and bilateral hilar calcified nodes. No pathologic lymphadenopathy. Lungs demonstrates moderate diffuse pulmonary emphysema with a few tiny scattered bilateral calcific granulomas. Left lower lobe and lesser degree lingula demonstrates interstitial alveolar opacities without effusion. Bony thorax intact. Limited upper abdomen demonstrates tiny hepatic/splenic calcified granulomas. Impression: 1. Respiration artifact. No obvious pulmonary embolus. 2. Lingula and left lower lobe pneumonia. 3. Chronic findings including pulmonary emphysema, arteriosclerotic disease, and old granulomatous disease. - Other Procedures and Tests Respiratory Therapy 02/23/22 19:37 BiPap/CPAP ROUTINE 02/24/22 01:00 Oxygen Oxymask LPM 10 lpm Assessment/Plan (1) Pneumonia Current Visit: Yes Status: Acute Qualifiers: Pneumonia type: due to Pneumococcus Laterality: left Lung location: lower lobe of lung Qualified Code(s): J13 - Pneumonia due to Streptococcus pneumoniae Assessment & Plan: Chief Complaint Diagnosis PNEUMONIA, HYPOXIA Allergies Allergy/AdvReac Type Severity Reaction Status Date / Time diazepam [From Valium] AdvReac Verified 02/24/22 00:16 Vital Signs (Last 24 hours) Temp Pulse Resp BP Pulse Ox 02/24/22 11:53 97.7 F 97 H 24 135/70 100 02/24/22 07:16 97.7 F 78 16 130/74 92 L 02/24/22 05:45 91 H 31 H 100 02/24/22 03:36 97.0 F 98 H 35 H 159/80 100 02/24/22 01:43 89 24 96 02/24/22 01:35 96 02/23/22 23:57 97.4 F 93 H 24 127/69 95 02/23/22 22:28 94 L 02/23/22 21:35 102 H 138/73 98 02/23/22 21:00 95 H 26 H 136/73 95 02/23/22 20:00 109 H 28 H 139/92 94 L 02/23/22 19:23 107 H 27 H 138/78 93 L 02/23/22 18:51 114 H 32 H 134/108 92 L 02/23/22 18:45 108 H 28 H 92 L 02/23/22 18:09 113 H 32 H 96 02/23/22 17:50 32 H 95 02/23/22 17:47 98.8 F 120 H 34 H 124/85 85 L Home Medications Medication Instructions Recorded Confirmed Last Taken Type No Reportable Medications [No 02/23/22 02/23/22 Unknown History Reported Medications] Current Medications Generic Name Dose Route Start Last Admin Trade Name Freq PRN Reason Stop Dose Admin Albuterol/Ipratropium 3 ml 02/24/22 07:00 02/24/22 05:45 Ipratropium/Albuterol Sulfate 3 Ml Ampul.Neb IH 03/26/22 06:59 3 ml Q6HRT MANJULA Administration Enoxaparin Sodium 40 mg 02/24/22 10:00 Enoxaparin Sodium 40 Mg/0.4 Ml Syringe SQ 03/26/22 09:59 DAILY MANJULA Ceftriaxone Sodium/Dextrose 1 g in 50 mls @ 100 mls/hr 02/24/22 22:00 Rocephin 1 Gm-D5w 50 Ml Bag IV 02/27/22 21:59 Q24H22 MANJULA Azithromycin 500 mg in 250 mls @ 250 mls/hr 02/24/22 10:00 02/24/22 10:38 Zithromax 500 Mg/ 250 Ml Nacl Premix IV 03/26/22 09:59 250 mls/hr Q24H10 MANJULA Administration Non-Formulary Medication 1 each 02/23/22 20:15 Hold Metformin Products For 48hrs 02/25/22 20:14 [facility] [place] Generic Name Dose Route Start Last Admin Trade Name Freq PRN Reason Stop Dose Admin Albuterol/Ipratropium 3 ml 02/23/22 17:49 02/23/22 18:08 Ipratropium/Albuterol Sulfate 3 Ml Ampul.Neb 02/23/22 17:50 3 ml STAT ONE Administration Albuterol/Ipratropium Confirm 02/23/22 17:51 Ipratropium/Albuterol Sulfate 3 Ml Ampul.Neb Administered 02/23/22 17:52 Dose 3 ml IH .STK-MED ONE Albuterol/Ipratropium 3 ml 02/23/22 18:39 02/23/22 18:45 Ipratropium/Albuterol Sulfate 3 Ml Ampul.Neb 02/23/22 18:40 3 ml STAT ONE Administration Albuterol/Ipratropium Confirm 02/23/22 18:42 Ipratropium/Albuterol Sulfate 3 Ml Ampul.Neb Administered 02/23/22 18:43 Dose 3 ml IH .STK-MED ONE Albuterol/Ipratropium 3 ml 02/23/22 23:00 02/24/22 01:34 Ipratropium/Albuterol Sulfate 3 Ml Ampul.Neb 03/25/22 22:59 Not Given Q4HRT MANJULA Albuterol/Ipratropium Confirm 02/24/22 00:47 Ipratropium/Albuterol Sulfate 3 Ml Ampul.Neb Administered 02/24/22 00:48 Dose 3 ml IH .STK-MED ONE Methylprednisolone Sodium 0 mg 02/23/22 18:38 02/23/22 18:41 Succinate 125 mg/ Sterile IV 02/23/22 18:39 125 mg Water 2 ml STAT ONE Administration Ceftriaxone Sodium/Dextrose 1 g in 50 mls @ 100 mls/hr 02/23/22 21:30 02/23/22 22:48 Rocephin 1 Gm-D5w 50 Ml Bag IV 02/23/22 21:59 Infused STAT STA Infusion Ceftriaxone Sodium/Dextrose Confirm 02/23/22 22:12 Rocephin 1 Gm-D5w 50 Ml Bag Administered 02/23/22 22:13 Dose 1 g in 50 mls @ ud IV .STK-MED ONE Methylprednisolone Sodium Succinate Confirm 02/23/22 18:40 Methylprednis Sod Succ 125 Mg/2 Ml Vial Administered 02/23/22 18:41 Dose 125 mg .ROUTE .STK-MED ONE Sterile Water Confirm 02/23/22 18:40 Water For Injection,Sterile 10 Ml Vial Administered 02/23/22 18:41 Dose 10 ml IJ .STK-MED ONE Intake & Output (Last 24 hours) 02/22/22 02/23/22 02/24/22 02/25/22 11:59 11:59 11:59 11:59 Intake Total 600 Output Total 400 Balance 200 Weight 94.1 kg Microbiology Results (Last 24 hours) 02/23/22 22:00 Blood Blood Culture Gram Stain - Pending 02/23/22 22:00 Blood Blood Culture - Pending 02/23/22 21:55 Blood Blood Culture Gram Stain - Pending 02/23/22 21:55 Blood Blood Culture - Pending Laboratory Results (Last 24 hours) 02/24/22 02/24/22 02/24/22 05:45 02:35 02:35 WBC 16.5 H RBC 6.64 H Hgb 17.7 Hct 58.2 H MCV 87.7 MCH 26.7 MCHC 30.4 L RDW 14.6 H Plt Count 191 MPV 10.0 Gran % Immature Gran % (Auto) Nucleat RBC Rel Count Eos # (Auto) Immature Gran # (Auto) Absolute Lymphs (auto) Absolute Monos (auto) Absolute Nucleated RBC Lymphocytes % Monocytes % Eosinophils % Basophils % Absolute Granulocytes Basophils # PT INR APTT D-Dimer Puncture Site RIGHT RADIAL pCO2 55 H pO2 125 H* Base Excess 5.2 H O2 Saturation 97.6 ABG pH 7.38 ABG HCO3 32.5 H* ABG O2 Sat (Measured) 98.8 Mikel Test YES A-a Gradient 305 a/A Ratio 0.29 Hemoglobin 18.3 Carboxyhemoglobin 1.0 Methemoglobin 0.2 L Temperature 37.0 POC O2 Flow Rate 70 Sodium 130 L Potassium 4.6 5.0 Chloride 94 L Carbon Dioxide 30 Anion Gap 10.3 BUN 23 H Creatinine 0.95 Estimated GFR > 60.0 Glucose 151 H Lactic Acid Calcium 9.2 Magnesium Total Bilirubin 0.90 AST 23 ALT 24 Alkaline Phosphatase 100 Troponin I NT-Pro-B Natriuret Pep Serum Total Protein 8.1 Albumin 3.9 Influenza Type A Ag Influenza Type B Ag RSV (PCR) SARS-CoV-2 (PCR) Slides for Path Review 02/24/22 02/23/22 02/23/22 02:35 21:55 18:55 WBC RBC Hgb Hct MCV MCH MCHC RDW Plt Count MPV Gran % Immature Gran % (Auto) Nucleat RBC Rel Count Eos # (Auto) Immature Gran # (Auto) Absolute Lymphs (auto) Absolute Monos (auto) Absolute Nucleated RBC Lymphocytes % Monocytes % Eosinophils % Basophils % Absolute Granulocytes Basophils # PT INR APTT D-Dimer 1.26 H* Puncture Site pCO2 pO2 Base Excess O2 Saturation ABG pH ABG HCO3 ABG O2 Sat (Measured) Mikel Test A-a Gradient a/A Ratio Hemoglobin Carboxyhemoglobin Methemoglobin Temperature POC O2 Flow Rate Sodium Potassium Chloride Carbon Dioxide Anion Gap BUN Creatinine Estimated GFR Glucose Lactic Acid Calcium Magnesium Total Bilirubin AST ALT Alkaline Phosphatase Troponin I < 0.012 < 0.012 NT-Pro-B Natriuret Pep Serum Total Protein Albumin Influenza Type A Ag Influenza Type B Ag RSV (PCR) SARS-CoV-2 (PCR) Slides for Path Review 02/23/22 02/23/22 02/23/22 18:50 18:00 18:00 WBC RBC Hgb Hct MCV MCH MCHC RDW Plt Count MPV Gran % Immature Gran % (Auto) Nucleat RBC Rel Count Eos # (Auto) Immature Gran # (Auto) Absolute Lymphs (auto) Absolute Monos (auto) Absolute Nucleated RBC Lymphocytes % Monocytes % Eosinophils % Basophils % Absolute Granulocytes Basophils # PT INR APTT D-Dimer Puncture Site RIGHT RADIAL pCO2 43 pO2 66 L Base Excess 5.8 H O2 Saturation 91.1 L ABG pH 7.46 H ABG HCO3 30.6 H* ABG O2 Sat (Measured) 93.4 L Mikel Test YES A-a Gradient 237 a/A Ratio 0.22 Hemoglobin 18.6 Carboxyhemoglobin 2.2 Methemoglobin 0.3 L Temperature 37.0 POC O2 Flow Rate 50 Sodium Potassium 4.6 Chloride Carbon Dioxide Anion Gap BUN Creatinine Estimated GFR Glucose Lactic Acid Calcium Magnesium Total Bilirubin AST ALT Alkaline Phosphatase Troponin I < 0.012 NT-Pro-B Natriuret Pep Serum Total Protein Albumin Influenza Type A Ag NEGATIVE Influenza Type B Ag NEGATIVE RSV (PCR) NEGATIVE SARS-CoV-2 (PCR) NEGATIVE Slides for Path Review 02/23/22 02/23/22 02/23/22 18:00 18:00 18:00 WBC 19.5 H RBC 6.86 H Hgb 18.5 H Hct 60.9 H MCV 88.8 MCH 27.0 MCHC 30.4 L RDW 15.2 H Plt Count 207 MPV 9.7 Gran % 90.3 H Immature Gran % (Auto) 0.5 H Nucleat RBC Rel Count 0.0 Eos # (Auto) 0 Immature Gran # (Auto) 0.09 H Absolute Lymphs (auto) 0.43 L Absolute Monos (auto) 1.33 H Absolute Nucleated RBC 0.00 Lymphocytes % 2.2 L Monocytes % 6.8 Eosinophils % 0.0 Basophils % 0.2 Absolute Granulocytes 17.65 H Basophils # 0.04 PT 12.9 H INR 1.24 APTT 31.3 D-Dimer Puncture Site pCO2 pO2 Base Excess O2 Saturation ABG pH ABG HCO3 ABG O2 Sat (Measured) Mikel Test A-a Gradient a/A Ratio Hemoglobin Carboxyhemoglobin Methemoglobin Temperature POC O2 Flow Rate Sodium 131 L Potassium 4.7 Chloride 94 L Carbon Dioxide 31 H Anion Gap 10.1 BUN 18 Creatinine 1.01 Estimated GFR > 60.0 Glucose 142 H Lactic Acid Calcium 9.3 Magnesium 1.8 Total Bilirubin 1.30 AST 37 ALT 25 Alkaline Phosphatase 113 Troponin I NT-Pro-B Natriuret Pep 543 Serum Total Protein 8.6 H Albumin 4.2 Influenza Type A Ag Influenza Type B Ag RSV (PCR) SARS-CoV-2 (PCR) Slides for Path Review YES 02/23/22 17:55 WBC RBC Hgb Hct MCV MCH MCHC RDW Plt Count MPV Gran % Immature Gran % (Auto) Nucleat RBC Rel Count Eos # (Auto) Immature Gran # (Auto) Absolute Lymphs (auto) Absolute Monos (auto) Absolute Nucleated RBC Lymphocytes % Monocytes % Eosinophils % Basophils % Absolute Granulocytes Basophils # PT INR APTT D-Dimer Puncture Site pCO2 pO2 Base Excess O2 Saturation ABG pH ABG HCO3 ABG O2 Sat (Measured) Mikel Test A-a Gradient a/A Ratio Hemoglobin Carboxyhemoglobin Methemoglobin Temperature POC O2 Flow Rate Sodium Potassium Chloride Carbon Dioxide Anion Gap BUN Creatinine Estimated GFR Glucose Lactic Acid 1.8 Calcium Magnesium Total Bilirubin AST ALT Alkaline Phosphatase Troponin I NT-Pro-B Natriuret Pep Serum Total Protein Albumin Influenza Type A Ag Influenza Type B Ag RSV (PCR) SARS-CoV-2 (PCR) Slides for Path Review Orders (Last 24 hours) Category Date Time Status Bedrest ROUTINE Activity 02/23/22 21:34 Active Admission Status Change [Change to Full Admit] ROUTINE Care 02/24/22 12:00 Active Code Status Order ROUTINE Care 02/23/22 21:34 Active EKG-ER Only STAT Care 02/23/22 17:45 Completed IV Care Q6H Care 02/23/22 21:34 Active Intake and Output 09,13,18,21 Care 02/23/22 21:[address] in Observation ROUTINE Care 02/23/22 21:34 Active Reji Elizabeth, Apply ROUTINE Care 02/23/22 21:34 Active Telemetry q6h Care 02/23/22 23:55 Active Vital Signs Q4H Care 02/23/22 21:34 Active Weight,Daily 0600 Care 02/23/22 21:34 Active Cardio-Pulmonary Rehab .as ordered Cons 02/24/22 00:15 Active [employer] Helper/Discharge Plan ROUTINE Cons 02/24/22 00:15 Active House Regular Diet Diet 02/24/22 Breakfast Active CHEST 1 VIEW (PORTABLE) Stat Exams 02/23/22 17:46 Completed CHEST WITH CONTRAST [CT] Stat Exams 02/23/22 19:39 Completed ABG [ARTERIAL BLOOD GASES] Stat Lab 02/23/22 18:50 Completed ARTERIAL BLOOD GASES AM.LAB Lab 02/24/22 05:45 Completed BLOOD CULTURE Stat Lab 02/23/22 22:00 Received CBC AM.LAB Lab 02/24/22 02:35 Completed CBC W DIFF Stat Lab 02/23/22 18:00 Completed CMP AM.LAB Lab 02/24/22 02:35 Completed CMP Stat Lab 02/23/22 18:00 Completed COVID/FLU/RSV Panel Stat Lab 02/23/22 18:00 Completed D-DIMER QUANTITATIVE Stat Lab 02/23/22 18:55 Completed Lactic Acid Stat Lab 02/23/22 17:55 Completed MAGNESIUM Stat Lab 02/23/22 18:00 Completed NT PRO BNP Stat Lab 02/23/22 18:00 Completed PROTIME WITH INR Stat Lab 02/23/22 18:00 Completed PTT Stat Lab 02/23/22 18:00 Completed TROPONIN Q4H Lab 02/23/22 18:00 Completed TROPONIN Q4H Lab 02/23/22 21:55 Completed TROPONIN Q4H Lab 02/24/22 02:35 Completed Albuterol/Ipratropium 3ml Neb* [DUONEB 0.5-3 MG/3 ml Med 02/23/22 17:51 Discontinued Neb] 3 ml IH .STK-MED ONE Albuterol/Ipratropium 3ml Neb* [DUONEB 0.5-3 MG/3 ml Med 02/23/22 18:42 Discontinued Neb] 3 ml IH .STK-MED ONE Albuterol/Ipratropium 3ml Neb* [DUONEB 0.5-3 MG/3 ml Med 02/24/22 00:47 Discontinued Neb] 3 ml IH .STK-MED ONE Albuterol/Ipratropium 3ml Neb* [DUONEB 0.5-3 MG/3 ml Med 02/23/22 23:00 Discontinued Neb] 3 ml IH Q4HRT Albuterol/Ipratropium 3ml Neb* [DUONEB 0.5-3 MG/3 ml Med 02/24/22 07:00 Active Neb] 3 ml IH Q6HRT Albuterol/Ipratropium 3ml Neb* [DUONEB 0.5-3 MG/3 ml Med 02/23/22 17:49 Discontinued Neb] 3 ml IH STAT ONE Albuterol/Ipratropium 3ml Neb* [DUONEB 0.5-3 MG/3 ml Med 02/23/22 18:39 Discontinued Neb] 3 ml IH STAT ONE Azithromycin 500 mg/250 ml [Zithromax 500 MG/ 250 ML Med 02/24/22 10:00 Active NaCl Premix] 500 mg in 250 ml IV Q24H10 Ceftriaxone 1 GM/50 ML PREMIX* [ROCEPHIN 1 Gm-D5w 50 ml Med 02/24/22 22:00 Active Bag] 1 g in 50 ml IV Q24H22 Ceftriaxone 1 GM/50 ML PREMIX* [ROCEPHIN 1 Gm-D5w 50 ml Med 02/23/22 21:30 Discontinued Bag] 1 g in 50 ml IV STAT Ceftriaxone 1 GM/50 ML PREMIX* [ROCEPHIN 1 Gm-D5w 50 ml Med 02/23/22 22:12 Discontinued Bag] 1 g in 50 ml IV UD Enoxaparin Sodium [Enoxaparin Sodium] Med 02/24/22 10:00 Active 40 mg SQ DAILY Flu Vacc [id number](65Yr Up)/Pf [Fluzone High-Dose Quad Med 02/24/22 10:00 Discontinued ] 240 mcg IM .ONCE ONE Hold Metformin [Hold Metformin Products For 48 Hours] Med 02/23/22 20:15 Active 1 each MC UD Methylprednis Sod Succ 125 mg* [solu-MEDROL] Med 02/23/22 18:40 Discontinued 125 mg .ROUTE .STK-MED ONE Methylprednis Sod Succ 125 mg* [solu-MEDROL] 125 mg Med 02/23/22 18:38 Discontinued Water For Injection,Sterile [Sterile H2O 10 ml] 2 ml IV STAT Water For Injection,Sterile [Sterile H2O 10 ml] Med 02/23/22 18:40 Discontinued 10 ml IJ .STK-MED ONE BiPap/CPAP ROUTINE RT 02/23/22 19:37 Active Oxygen Oxymask LPM 10 lpm RT 02/24/22 01:00 Active Pulse Oximetry CONTINUOUS RT 02/23/22 21:35 Active RT Screen per Nursing Assess ONCE RT 02/24/22 00:15 Completed Respiratory Therapy Consult ROUTINE RT 02/23/22 21:35 Completed Smoking Cessation Education ONCE RT 02/24/22 00:15 Completed Patient Care Notes (Last 24 hours) 02/24/22 12:00 (created 02/24/22 12:19) Case Management Note by Rosa Wilcox DR ROUNDED AND EVALUATED, DISCUSSED TREATMENT AND PLAN OF CARE WITH PATIENT. PATIENT VERBALIZED UNDERSTANDING AND ALL QUESTIONS ANSWERED BY DR MOY. CHANGED TO INPATIENT STATUS AND REPORTS THAT PT WILL LIKELY BE HERE A FEW DAYS. AUSCULTATED LUNG HARRIS WITH STETHOSCOPE AND REPORTS THAT PT IS STILL NOT MOVING MUCH AIR. CURRENTLY OFF OF BIPAP, ON 13L OXYMIZER AND SATS 95%. PATIENT REPORTS THAT HE IS STILL SOB WITH ANY ACTIVITY/EXERTION. Initialized on 02/24/22 12:19 - END OF NOTE Code(s): J18.9 - PNEUMONIA, UNSPECIFIED ORGANISM (2) Acute hypoxemic respiratory failure Current Visit: Yes Status: Acute Code(s): J96.01 - ACUTE RESPIRATORY FAILURE WITH HYPOXIA
[2022-02-24] MEDS: ENOXAPARIN SODIUM SQ SCH (15:38)
[2022-02-24] MEDS: ROCEPHIN 1 Gm-D5w 50 ml Bag** 1 G/50 ML IVPB IV SCH (21:16)
[2022-02-25] MEDS: DUONEB 0.5-3 MG/3 ml Neb IH SCH ×4 (01:27→17:55)
[2022-02-25] MEDS: Zithromax 500 MG/ 250 ML NaCl Premix 500 MG/250 ML IVPB IV SCH (08:57)
[2022-02-25] MEDS: ENOXAPARIN SODIUM SQ SCH (08:58)
--- NOTE | 2022-02-25 11:50 | PCM.NOTE ---
Date and Time: 02/25/22 1146 Subjective Assessment: He is breathing better. Curly po. Not on O2 at home. - Review of Systems Constitutional: No Fever Respiratory: Cough Objective Exam General Appearance: no apparent distress, obese Neurologic Exam: oriented x 3, cooperative Skin Exam: normal color, warm, dry, No rash Eye Exam: eyes nml inspection Ears, Nose, Throat Exam: moist mucous membranes Neck Exam: normal inspection Respiratory Exam: diminished breath sounds (poor air exchange), No crackles/ra les, No rhonchi, No wheezing Cardiovascular Exam: regular rate/rhythm, normal heart sounds, No murmur Gastrointestinal/Abdomen Exam: soft, normal bowel sounds, No tenderness, No mass, No guarding, No rebound Extremity Exam: normal inspection, No pedal edema, No swelling OBJECTIVE DATA Vital Signs: Vital Signs - 24 hr Temp Pulse Resp BP Pulse Ox 02/25/22 08:00 97.8 F 76 18 123/67 98 02/25/22 06:55 85 18 92 L 02/25/22 04:00 98.0 F 81 20 118/59 92 L 02/25/22 01:29 80 18 92 L 02/24/22 23:44 97.8 F 80 24 111/57 90 L 02/24/22 20:00 98.7 F 81 22 115/57 100 02/24/22 18:52 100 H 24 95 02/24/22 17:25 98 02/24/22 16:00 97.2 F 101 H 27 H 117/65 97 02/24/22 12:59 90 22 97 02/24/22 11:53 97.7 F 97 H 24 135/70 100 Pain Assessment - Last Documented Pain Intensity 0 Intake and Output: Intake & Output 02/22/22 02/23/22 02/24/22 02/25/22 11:59 11:59 11:59 11:59 Intake Total 600 1960 Output Total 400 1150 Balance 200 810 Weight 94.1 kg 95.6 kg Radiology Exams: Radiology Procedures Category Date Time Status CHEST 1 VIEW (PORTABLE) Stat Exams 02/23/22 17:46 Completed CHEST WITH CONTRAST [CT] Stat Exams 02/23/22 19:39 Completed Multi-Disciplinary Progress Notes: Multi-Disciplinary Progress Notes 02/25/22 09:31 Case Management Note by Berta Jules Addendum entered by Berta Jules 02/25/22 09:35: PATIENT LIVES ALONE AND IS INDEPENDENT WITH ADLS. HE REPORTS HE HAS FAMILY THAT CAN HELP HIM IF NEEDED. Original Note: S/W PATIENT- HE CONTINUES TO DENY ANY NEW NEEDS AT TIME OF DC. HE DOES NOT HAVE HOME OXYGEN. OXYGEN FORM PLACED ON CHART FOR USE AT DC IF NEEDED. PATIENT DOES REPORT HE HAS A NEB MACHINE AT HOME. Initialized on 02/25/22 09:31 - END OF NOTE 02/24/22 12:00 (created 02/24/22 12:19) Case Management Note by Rosa Wilcox DR ROUNDED AND EVALUATED, DISCUSSED TREATMENT AND PLAN OF CARE WITH PATIENT. PATIENT VERBALIZED UNDERSTANDING AND ALL QUESTIONS ANSWERED BY DR MOY. CHANGED TO INPATIENT STATUS AND REPORTS THAT PT WILL LIKELY BE HERE A FEW DAYS. AUSCULTATED LUNG HARRIS WITH STETHOSCOPE AND REPORTS THAT PT IS STILL NOT MOVING MUCH AIR. CURRENTLY OFF OF BIPAP, ON 13L OXYMIZER AND SATS 95%. PATIENT REPORTS THAT HE IS STILL SOB WITH ANY ACTIVITY/EXERTION. Initialized on 02/24/22 12:19 - END OF NOTE Assessment/Plan (1) Pneumonia Current Visit: Yes Status: Acute Qualifiers: Pneumonia type: due to Pneumococcus Laterality: left Lung location: lower lobe of lung Qualified Code(s): J13 - Pneumonia due to Streptococcus pneumoniae Assessment & Plan: On Rocephin and zithromax. Improving; anticipate it may take several more days before he is ready to discharge to home. Code(s): J18.9 - PNEUMONIA, UNSPECIFIED ORGANISM (2) COPD (chronic obstructive pulmonary disease) Current Visit: Yes Status: Acute (3) Acute hypoxemic respiratory failure Current Visit: Yes Status: Acute Code(s): J96.01 - ACUTE RESPIRATORY FAILURE WITH HYPOXIA (4) Tobacco abuse Current Visit: Yes Status: Acute Code(s): Z72.0 - TOBACCO USE (5) Hyperglycemia Current Visit: Yes Status: Acute Assessment & Plan: will check a1c Code(s): R73.9 - HYPERGLYCEMIA, UNSPECIFIED
[2022-02-25] MEDS: ROCEPHIN 1 Gm-D5w 50 ml Bag** 1 G/50 ML IVPB IV SCH (21:12)
[2022-02-26] MEDS: DUONEB 0.5-3 MG/3 ml Neb IH SCH ×4 (00:58→17:43)
[2022-02-26 05:54] LABS: Absolute Neutrophil Ct (ANC) 6.77 x10^3/uL (1.4-6.9); Basophil (Absolute #) 0.03 x10^3/uL (0-0.4); Eosinophil % 2.2 % (0.00-5.0); Eosinophil (Absolute #) 0.19 x10^3/uL (0-0.5); Hematocrit 55.3 % (42-50); Hemoglobin 16.3 g/dL (12.5-18.0); Lymphocyte (Absolute #) 0.93 x10^3/uL (1.0-4.6); Lymphocytes % 10.7 % (24.0-44.0); Mean Cell Volume 90.7 fL (78-100); Mean Corpuscular Hemoglobin 26.7 pg (26-32); Mean Corpuscular Hgb Concent. 29.5 g/dL (32-36); Mean Platelet Volume 9.8 fL (7.5-11.0); Monocyte (Absolute #) 0.72 x10^3/uL (0.0-1.3); Monocytes % 8.3 % (0.0-12.0); Neutrophil % 78.2 % (36.0-66.0); Platelet Count 186 x10^3/uL (150-450); White Blood Count 8.7 x10^3/uL (4.0-10.5)
[2022-02-26 06:17] LABS: ANION GAP 4.7 MEQ/L (5-15); BLOOD UREA NITROGEN 17 mg/dL (9-20); CHLORIDE 95 mmol/L (98-107); Calcium 8.7 mg/dL (8.4-10.2); Carbon Dioxide 36 mmol/L (22-30); Creatinine 1 0.69 mg/dL (0.66-1.25); EST GLOMERULAR FILTRATION RATE > 60.0 ML/MIN; Glucose 99 mg/dL (74-106); Potassium 4.5 mmol/L (3.5-5.1); SODIUM 131 mmol/L (137-145)
[2022-02-26] MEDS ORDERED: HUMALOG SQ PRN (09:19)
--- NOTE | 2022-02-26 09:22 | PCM.NOTE ---
Date and Time: 02/26/22919 Subjective Assessment: patient currently requiring oxymizer, he is coughing and feels short of breath. no other complaints Objective Exam General Appearance: no apparent distress Neurologic Exam: alert, oriented x 3 Respiratory Exam: prolonged expirations, wheezing Cardiovascular Exam: regular rate/rhythm, normal heart sounds Gastrointestinal/Abdomen Exam: soft, No tenderness, No mass Extremity Exam: normal inspection, normal range of motion OBJECTIVE DATA Vital Signs: Vital Signs - 24 hr Temp Pulse Resp BP Pulse Ox 02/26/22 07:15 97.7 F 73 16 132/61 96 02/26/22 06:25 88 22 98 02/26/22 04:00 98.0 F 83 22 128/70 96 02/26/22 01:05 82 20 89 L 02/25/22 23:55 98.2 F 87 26 H 135/74 100 02/25/22 20:00 98.4 F 82 24 121/65 90 L 02/25/22 17:56 82 18 99 02/25/22 15:59 97.7 F 87 18 127/80 97 02/25/22 12:51 89 16 98 02/25/22 12:00 85 20 128/63 97 Pain Assessment - Last Documented Pain Intensity 0 Intake and Output: Intake & Output 02/23/22 02/24/22 02/25/22 02/26/22 11:59 11:59 11:59 11:59 Intake Total 600 1960 1400 Output Total 400 1150 1925 Balance 200 810 -525 Weight 94.1 kg 95.6 kg 96 kg Lab Results: Lab Results-Last 24 Hours 02/25/22 02/26/22 02/26/22 Range/Units 12:36 05:35 05:35 WBC 8.7 (4.0-10.5) x10^3/uL RBC 6.10 H (4.1-5.6) x10^6/uL Hgb 16.3 (12.5-18.0) g/dL Hct 55.3 H (42-50) % MCV 90.7 (78-100) fL MCH 26.7 (26-32) pg MCHC 29.5 L (32-36) g/dL RDW 14.0 (11.5-14.0) % Plt Count 186 (150-450) x10^3/uL MPV 9.8 (7.5-11.0) fL Gran % 78.2 H (36.0-66.0) % Immature Gran % (Auto) 0.3 (0.00-0.4) % Nucleat RBC Rel Count 0.0 (0.00-0.1) % Eos # (Auto) 0.19 (0-0.5) x10^3/uL Immature Gran # (Auto) 0.03 (0.00-0.03) x10^3u/L Absolute Lymphs (auto) 0.93 L (1.0-4.6) x10^3/uL Absolute Monos (auto) 0.72 (0.0-1.3) x10^3/uL Absolute Nucleated RBC 0.00 (0.00-0.01) x10^3u/L Lymphocytes % 10.7 L (24.0-44.0) % Monocytes % 8.3 (0.0-12.0) % Eosinophils % 2.2 (0.00-5.0) % Basophils % 0.3 (0.0-0.4) % Absolute Granulocytes 6.77 (1.4-6.9) x10^3/uL Basophils # 0.03 (0-0.4) x10^3/uL Sodium 131 L (137-145) mmol/L Potassium 4.5 (3.5-5.1) mmol/L Chloride 95 L (98-107) mmol/L Carbon Dioxide 36 H (22-30) mmol/L Anion Gap 4.7 L (5-15) MEQ/L BUN 17 (9-20) mg/dL Creatinine 0.69 (0.66-1.25) mg/dL Estimated GFR > 60.0 ML/MIN Glucose 99 (74-106) mg/dL Hemoglobin A1c 6.52 H (4.5-6.0) % Calcium 8.7 (8.4-10.2) mg/dL Multi-Disciplinary Progress Notes: Multi-Disciplinary Progress Notes 02/25/22 09:31 Case Management Note by Berta Jules Addendum entered by Berta Jules 02/25/22 09:35: PATIENT LIVES ALONE AND IS INDEPENDENT WITH ADLS. HE REPORTS HE HAS FAMILY THAT CAN HELP HIM IF NEEDED. Original Note: S/W PATIENT- HE CONTINUES TO DENY ANY NEW NEEDS AT TIME OF DC. HE DOES NOT HAVE HOME OXYGEN. OXYGEN FORM PLACED ON CHART FOR USE AT DC IF NEEDED. PATIENT DOES REPORT HE HAS A NEB MACHINE AT HOME. Initialized on 02/25/22 09:31 - END OF NOTE Assessment/Plan (1) Pneumonia Current Visit: Yes Status: Acute Qualifiers: Pneumonia type: due to Pneumococcus Laterality: left Lung location: lower lobe of lung Qualified Code(s): J13 - Pneumonia due to Streptococcus pneumoniae Assessment & Plan: continue rocephin/zithromax, exam c/w acute exac of copd/wheezing. lovenox ordered Code(s): J18.9 - PNEUMONIA, UNSPECIFIED ORGANISM (2) Acute exacerbation of chronic obstructive airways disease Current Visit: Yes Status: Acute Assessment & Plan: nebs, abx and will add IV steroids Code(s): J44.1 - CHRONIC OBSTRUCTIVE PULMONARY DISEASE W (ACUTE) EXACERBATION (3) Diabetes mellitus Current Visit: Yes Status: Acute Assessment & Plan: add sliding scale coverage due to steroids Code(s): E11.9 - TYPE 2 DIABETES MELLITUS WITHOUT COMPLICATIONS
[2022-02-26] MEDS: ENOXAPARIN SODIUM SQ SCH (10:35)
[2022-02-26] MEDS: Zithromax 500 MG/ 250 ML NaCl Premix 500 MG/250 ML IVPB IV SCH (10:35)
[2022-02-26] MEDS: solu-MEDROL IV SCH ×3 (10:36→23:22)
[2022-02-26] MEDS: ROCEPHIN 1 Gm-D5w 50 ml Bag** 1 G/50 ML IVPB IV SCH (23:22)
[2022-02-27] MEDS: DUONEB 0.5-3 MG/3 ml Neb IH SCH ×4 (00:39→18:39)
[2022-02-27 05:04] LABS: ANION GAP 8.3 MEQ/L (5-15); BLOOD UREA NITROGEN 16 mg/dL (9-20); CHLORIDE 95 mmol/L (98-107); Calcium 8.7 mg/dL (8.4-10.2); Carbon Dioxide 32 mmol/L (22-30); Creatinine 1 0.59 mg/dL (0.66-1.25); EST GLOMERULAR FILTRATION RATE > 60.0 ML/MIN; Glucose 193 mg/dL (74-106); Potassium 4.2 mmol/L (3.5-5.1); SODIUM 130 mmol/L (137-145)
[2022-02-27 05:07] LABS: Absolute Neutrophil Ct (ANC) 7.44 x10^3/uL (1.4-6.9); Basophil (Absolute #) 0.01 x10^3/uL (0-0.4); Eosinophil (Absolute #) 0 x10^3/uL (0-0.5); Hematocrit 54.5 % (42-50); Hemoglobin 16.7 g/dL (12.5-18.0); Lymphocyte (Absolute #) 0.27 x10^3/uL (1.0-4.6); Lymphocytes % 3.4 % (24.0-44.0); Mean Corpuscular Hgb Concent. 30.6 g/dL (32-36); Mean Platelet Volume 9.4 fL (7.5-11.0); Monocyte (Absolute #) 0.13 x10^3/uL (0.0-1.3); Monocytes % 1.6 % (0.0-12.0); Neutrophil % 94.5 % (36.0-66.0); Platelet Count 197 x10^3/uL (150-450); Red Blood Count 6.19 x10^6/uL (4.1-5.6); Red Cell Distribution Width 13.6 % (11.5-14.0); White Blood Count 7.9 x10^3/uL (4.0-10.5)
[2022-02-27] MEDS: solu-MEDROL IV SCH ×3 (06:49→16:55)
--- NOTE | 2022-02-27 08:35 | PCM.NOTE ---
Date and Time: 02/27/22 0834 Subjective Assessment: patient notes improvement in his breathing, feeling better today. Objective Exam General Appearance: no apparent distress Neurologic Exam: alert, oriented x 3 Respiratory Exam: prolonged expirations, wheezing Cardiovascular Exam: regular rate/rhythm, normal heart sounds Gastrointestinal/Abdomen Exam: soft, No tenderness, No mass Extremity Exam: normal inspection, normal range of motion OBJECTIVE DATA Vital Signs: Vital Signs - 24 hr Temp Pulse Resp BP Pulse Ox 02/27/22 07:16 98.3 F 86 16 150/69 99 02/27/22 06:48 86 20 95 02/27/22 04:00 98.0 F 88 22 142/69 99 02/27/22 00:40 85 22 90 L 02/26/22 23:54 98.1 F 88 22 130/58 100 02/26/22 19:48 97.8 F 86 24 140/63 98 02/26/22 17:44 88 17 98 02/26/22 16:00 97.7 F 87 16 151/68 99 02/26/22 12:46 87 22 96 02/26/22 12:00 98.0 F 79 17 137/69 100 Pain Assessment - Last Documented Pain Intensity 0 Intake and Output: Intake & Output 02/24/22 02/25/22 02/26/22 02/27/22 11:59 11:59 11:59 11:59 Intake Total 600 1960 1700 2503 Output Total 400 1150 2625 1300 Balance 200 810 -925 1203 Weight 94.1 kg 95.6 kg 96 kg 95.9 kg Lab Results: Lab Results-Last 24 Hours 02/26/22 02/26/22 02/27/22 Range/Units 13:08 21:38 04:30 WBC 7.9 (4.0-10.5) x10^3/uL RBC 6.19 H (4.1-5.6) x10^6/uL Hgb 16.7 (12.5-18.0) g/dL Hct 54.5 H (42-50) % MCV 88.0 (78-100) fL MCH 27.0 (26-32) pg MCHC 30.6 L (32-36) g/dL RDW 13.6 (11.5-14.0) % Plt Count 197 (150-450) x10^3/uL MPV 9.4 (7.5-11.0) fL Gran % 94.5 H (36.0-66.0) % Immature Gran % (Auto) 0.4 (0.00-0.4) % Nucleat RBC Rel Count 0.0 (0.00-0.1) % Eos # (Auto) 0 (0-0.5) x10^3/uL Immature Gran # (Auto) 0.03 (0.00-0.03) x10^3u/L Absolute Lymphs (auto) 0.27 L (1.0-4.6) x10^3/uL Absolute Monos (auto) 0.13 (0.0-1.3) x10^3/uL Absolute Nucleated RBC 0.00 (0.00-0.01) x10^3u/L Lymphocytes % 3.4 L (24.0-44.0) % Monocytes % 1.6 (0.0-12.0) % Eosinophils % 0.0 (0.00-5.0) % Basophils % 0.1 (0.0-0.4) % Absolute Granulocytes 7.44 H (1.4-6.9) x10^3/uL Basophils # 0.01 (0-0.4) x10^3/uL Sodium (137-145) mmol/L Potassium (3.5-5.1) mmol/L Chloride (98-107) mmol/L Carbon Dioxide (22-30) mmol/L Anion Gap (5-15) MEQ/L BUN (9-20) mg/dL Creatinine (0.66-1.25) mg/dL Estimated GFR ML/MIN Glucose (74-106) mg/dL POC Glucometer 103 181 H (74 to 106) mg/dL Calcium (8.4-10.2) mg/dL 02/27/22 02/27/22 Range/Units 04:30 07:36 WBC (4.0-10.5) x10^3/uL RBC (4.1-5.6) x10^6/uL Hgb (12.5-18.0) g/dL Hct (42-50) % MCV (78-100) fL MCH (26-32) pg MCHC (32-36) g/dL RDW (11.5-14.0) % Plt Count (150-450) x10^3/uL MPV (7.5-11.0) fL Gran % (36.0-66.0) % Immature Gran % (Auto) (0.00-0.4) % Nucleat RBC Rel Count (0.00-0.1) % Eos # (Auto) (0-0.5) x10^3/uL Immature Gran # (Auto) (0.00-0.03) x10^3u/L Absolute Lymphs (auto) (1.0-4.6) x10^3/uL Absolute Monos (auto) (0.0-1.3) x10^3/uL Absolute Nucleated RBC (0.00-0.01) x10^3u/L Lymphocytes % (24.0-44.0) % Monocytes % (0.0-12.0) % Eosinophils % (0.00-5.0) % Basophils % (0.0-0.4) % Absolute Granulocytes (1.4-6.9) x10^3/uL Basophils # (0-0.4) x10^3/uL Sodium 130 L (137-145) mmol/L Potassium 4.2 (3.5-5.1) mmol/L Chloride 95 L (98-107) mmol/L Carbon Dioxide 32 H (22-30) mmol/L Anion Gap 8.3 (5-15) MEQ/L BUN 16 (9-20) mg/dL Creatinine 0.59 L (0.66-1.25) mg/dL Estimated GFR > 60.0 ML/MIN Glucose 193 H (74-106) mg/dL POC Glucometer 155 H (74 to 106) mg/dL Calcium 8.7 (8.4-10.2) mg/dL Assessment/Plan (1) Pneumonia Current Visit: Yes Status: Acute Qualifiers: Pneumonia type: due to Pneumococcus Laterality: left Lung location: lower lobe of lung Qualified Code(s): J13 - Pneumonia due to Streptococcus pneumoniae Assessment & Plan: continue rocephin/zithromax, clinically improving. Code(s): J18.9 - PNEUMONIA, UNSPECIFIED ORGANISM (2) Acute exacerbation of chronic obstructive airways disease Current Visit: Yes Status: Acute Assessment & Plan: wheezing is clearing, clinically improving. continue abx, nebs and IV solu medrol Code(s): J44.1 - CHRONIC OBSTRUCTIVE PULMONARY DISEASE W (ACUTE) EXACERBATION (3) Diabetes mellitus Current Visit: Yes Status: Acute Code(s): E11.9 - TYPE 2 DIABETES MELLITUS WITHOUT COMPLICATIONS
[2022-02-27 09:14] LABS: Slide Review 1 YES
[2022-02-27] MEDS: Zithromax 500 MG/ 250 ML NaCl Premix 500 MG/250 ML IVPB IV SCH (09:30)
[2022-02-27] MEDS: ENOXAPARIN SODIUM SQ SCH (09:30)
[2022-02-27] MEDS: ROCEPHIN 1 Gm-D5w 50 ml Bag** 1 G/50 ML IVPB IV SCH (22:19)
[2022-02-28] MEDS: DUONEB 0.5-3 MG/3 ml Neb IH SCH ×4 (00:40→18:57)
[2022-02-28] MEDS: solu-MEDROL IV SCH ×4 (01:44→22:58)
[2022-02-28 06:23] LABS: Absolute Neutrophil Ct (ANC) 13.65 x10^3/uL (1.4-6.9); Basophil (Absolute #) 0.02 x10^3/uL (0-0.4); Eosinophil (Absolute #) 0 x10^3/uL (0-0.5); Hematocrit 54.8 % (42-50); Hemoglobin 16.6 g/dL (12.5-18.0); Lymphocyte (Absolute #) 0.29 x10^3/uL (1.0-4.6); Mean Corpuscular Hemoglobin 26.6 pg (26-32); Mean Corpuscular Hgb Concent. 30.3 g/dL (32-36); Mean Platelet Volume 9.4 fL (7.5-11.0); Monocyte (Absolute #) 0.36 x10^3/uL (0.0-1.3); Monocytes % 2.5 % (0.0-12.0); Neutrophil % 94.7 % (36.0-66.0); Platelet Count 204 x10^3/uL (150-450); Red Blood Count 6.23 x10^6/uL (4.1-5.6); Red Cell Distribution Width 13.6 % (11.5-14.0); White Blood Count 14.4 x10^3/uL (4.0-10.5)
[2022-02-28 06:46] LABS: ANION GAP 8.8 MEQ/L (5-15); BLOOD UREA NITROGEN 19 mg/dL (9-20); CHLORIDE 97 mmol/L (98-107); Calcium 8.5 mg/dL (8.4-10.2); Carbon Dioxide 32 mmol/L (22-30); EST GLOMERULAR FILTRATION RATE > 60.0 ML/MIN; Glucose 137 mg/dL (74-106); Potassium 4.5 mmol/L (3.5-5.1); SODIUM 133 mmol/L (137-145)
[2022-02-28] MEDS: ENOXAPARIN SODIUM SQ SCH (09:51)
[2022-02-28] MEDS: Zithromax 500 MG/ 250 ML NaCl Premix 500 MG/250 ML IVPB IV SCH (09:51)
[2022-02-28 10:16] LABS: Slide Review 1 YES
[2022-02-28] MEDS: ROCEPHIN 1 Gm-D5w 50 ml Bag** 1 G/50 ML IVPB IV SCH (22:58)
[2022-03-01] MEDS: DUONEB 0.5-3 MG/3 ml Neb IH SCH ×4 (01:22→19:04)
[2022-03-01] MEDS: solu-MEDROL IV SCH ×3 (06:33→20:47)
[2022-03-01 06:38] LABS: Hematocrit 54.3 % (42-50); Hemoglobin 16.3 g/dL (12.5-18.0); Mean Cell Volume 90.2 fL (78-100); Mean Corpuscular Hemoglobin 27.1 pg (26-32); Mean Platelet Volume 9.4 fL (7.5-11.0); Platelet Count 195 x10^3/uL (150-450); Red Blood Count 6.02 x10^6/uL (4.1-5.6); Red Cell Distribution Width 13.6 % (11.5-14.0); White Blood Count 13.7 x10^3/uL (4.0-10.5)
[2022-03-01 07:01] LABS: ALBUMIN 3.2 g/dL (3.5-5.0); ALKALINE PHOSPHATASE 66 U/L (38-126); ANION GAP 5.8 MEQ/L (5-15); BLOOD UREA NITROGEN 20 mg/dL (9-20); CHLORIDE 98 mmol/L (98-107); Calcium 8.4 mg/dL (8.4-10.2); Carbon Dioxide 33 mmol/L (22-30); Creatinine 1 0.56 mg/dL (0.66-1.25); EST GLOMERULAR FILTRATION RATE > 60.0 ML/MIN; Glucose 125 mg/dL (74-106); Potassium 4.5 mmol/L (3.5-5.1); SGOT/AST 33 U/L (17-59); SGPT/ALT 56 U/L (0-50); SODIUM 132 mmol/L (137-145); Total Protein 6.6 g/dL (6.3-8.2)
[2022-03-01] MEDS: ENOXAPARIN SODIUM SQ SCH (10:22)
[2022-03-01] MEDS: Zithromax 500 MG/ 250 ML NaCl Premix 500 MG/250 ML IVPB IV SCH (10:22)
[2022-03-01] MEDS: Advair Hfa 115/21 Common canister IH SCH (19:04)
[2022-03-01] MEDS ORDERED: Sterile H2O 10 ml IJ ONE (20:38)
[2022-03-01] MEDS: ROCEPHIN 1 Gm-D5w 50 ml Bag** 1 G/50 ML IVPB IV SCH (20:46)
[2022-03-02] MEDS: DUONEB 0.5-3 MG/3 ml Neb IH SCH ×3 (01:08→13:05)
[2022-03-02 05:03] LABS: Hemoglobin 16.5 g/dL (12.5-18.0); Mean Cell Volume 90.5 fL (78-100); Mean Corpuscular Hemoglobin 26.7 pg (26-32); Mean Corpuscular Hgb Concent. 29.5 g/dL (32-36); Mean Platelet Volume 9.3 fL (7.5-11.0); Platelet Count 175 x10^3/uL (150-450); Red Blood Count 6.19 x10^6/uL (4.1-5.6); Red Cell Distribution Width 13.5 % (11.5-14.0)
[2022-03-02] MEDS: solu-MEDROL IV SCH (05:26)
[2022-03-02 05:35] LABS: ALKALINE PHOSPHATASE 64 U/L (38-126); ANION GAP 4.6 MEQ/L (5-15); BLOOD UREA NITROGEN 23 mg/dL (9-20); CHLORIDE 97 mmol/L (98-107); Calcium 8.2 mg/dL (8.4-10.2); Carbon Dioxide 35 mmol/L (22-30); Creatinine 1 0.64 mg/dL (0.66-1.25); EST GLOMERULAR FILTRATION RATE > 60.0 ML/MIN; Glucose 137 mg/dL (74-106); Potassium 4.7 mmol/L (3.5-5.1); SGOT/AST 31 U/L (17-59); SGPT/ALT 82 U/L (0-50); SODIUM 133 mmol/L (137-145); Total Protein 6.4 g/dL (6.3-8.2)
[2022-03-02] MEDS: Advair Hfa 115/21 Common canister IH SCH (06:56)
--- NOTE | 2022-03-02 08:51 | XRAY ---
Indication: Pneumonia. COPD. Comparison: February 23, 2022 Portable chest again hyperinflated with mild clearing of previous left base interstitial alveolar opacities with new tiny effusion. Remaining heart and lungs unremarkable again with incidental scattered calcified granulomas.
[2022-03-02] MEDS: ENOXAPARIN SODIUM SQ SCH (10:30)
[2022-03-02] MEDS: Zithromax 500 MG/ 250 ML NaCl Premix 500 MG/250 ML IVPB IV SCH (10:31)
[2022-03-02 11:51] VITALS: BP 154/67
[2022-03-02 13:17] VITALS: PULSE 95; O2SAT 91
--- NOTE | 2022-03-02 17:43 | PCM.DS ---
Discharge Summary Date of Admission: 02/24/22 12:00 Admitting Physician: TWILA MOY Primary Care Provider: TWILA MOY Allergies Allergies diazepam [From Valium] Adverse Reaction (Verified 02/24/22 00:16) Hospital Summary - Hospital Course Hospital Course: Chief Complaint Diagnosis severe shortness of breath for 2 days Allergies Allergy/AdvReac Type Severity Reaction Status Date / Time diazepam [From Valium] AdvReac Verified 02/24/22 00:16 Vital Signs (Last 24 hours) Temp Pulse Resp BP Pulse Ox 03/02/22 13:16 95 H 18 91 L 03/02/22 11:50 98.0 F 94 H 16 154/67 93 L 03/02/22 09:04 90 L 03/02/22 07:10 98.0 F 77 16 158/79 92 L 03/02/22 07:07 81 16 91 L 03/02/22 04:00 97 03/02/22 01:10 76 20 94 L 03/02/22 00:00 98.2 F 92 H 20 140/66 93 L 03/01/22 20:00 98.2 F 92 H 20 140/66 93 L 03/01/22 19:05 92 H 20 93 L Home Medications Medication Instructions Recorded Confirmed Last Taken Type Albuterol/Ipratropium 3ml Neb* 3 ml IH Q6HRT #1 misc 03/02/22 Unknown Rx [DUONEB 0.5-3 MG/3 ml Neb] Fluticasone/Salmeterol 115/21 2 puff IH BIDRT #1 inhaler 03/02/22 Unknown Rx [Advair Hfa 115/21 Common canister*] Nicotine 21 mg [Nicoderm CQ 21 21 mg TOP DAILY 30 Days #30 patch 03/02/22 Unknown Rx MG] Prednisone 10 mg [Deltasone 10 10 mg PO BID 30 Days #60 tablet 03/02/22 Unknown Rx mg] Current Medications Discontinued Medications Generic Name Dose Route Start Last Admin Trade Name Freq PRN Reason Stop Dose Admin Albuterol/Ipratropium 3 ml 02/23/22 17:49 02/23/22 18:08 Ipratropium/Albuterol Sulfate 3 Ml Ampul.Neb IH 02/23/22 17:50 3 ml STAT ONE Administration Albuterol/Ipratropium Confirm 02/23/22 17:51 Ipratropium/Albuterol Sulfate 3 Ml Ampul.Neb Administered 02/23/22 17:52 Dose 3 ml IH .STK-MED ONE Albuterol/Ipratropium 3 ml 02/23/22 18:39 02/23/22 18:45 Ipratropium/Albuterol Sulfate 3 Ml Ampul.Neb IH 02/23/22 18:40 3 ml STAT ONE Administration Albuterol/Ipratropium Confirm 02/23/22 18:42 Ipratropium/Albuterol Sulfate 3 Ml Ampul.Neb Administered 02/23/22 18:43 Dose 3 ml IH .STK-MED ONE Albuterol/Ipratropium 3 ml 02/23/22 23:00 02/24/22 01:34 Ipratropium/Albuterol Sulfate 3 Ml Ampul.Neb IH 03/25/22 22:59 Not Given Q4HRT MANJULA Albuterol/Ipratropium Confirm 02/24/22 00:47 Ipratropium/Albuterol Sulfate 3 Ml Ampul.Neb Administered 02/24/22 00:48 Dose 3 ml IH .STK-MED ONE Albuterol/Ipratropium 3 ml 02/24/22 07:00 03/02/22 13:05 Ipratropium/Albuterol Sulfate 3 Ml Ampul.Neb 03/26/22 06:59 3 ml Q6HRT MANJULA Administration Methylprednisolone Sodium 0 mg 02/23/22 18:38 02/23/22 18:41 Succinate 125 mg/ Sterile IV 02/23/22 18:39 125 mg Water 2 ml STAT ONE Administration Enoxaparin Sodium 40 mg 02/24/22 10:00 03/02/22 10:30 Enoxaparin Sodium 40 Mg/0.4 Ml Syringe SQ 03/26/22 09:59 40 mg DAILY MANJULA Administration Ceftriaxone Sodium/Dextrose 1 g in 50 mls @ 100 mls/hr 02/23/22 21:30 02/23/22 22:48 Rocephin 1 Gm-D5w 50 Ml Bag IV 02/23/22 21:59 Infused STAT STA Infusion Ceftriaxone Sodium/Dextrose 1 g in 50 mls @ 100 mls/hr 02/24/22 22:00 03/01/22 20:46 Rocephin 1 Gm-D5w 50 Ml Bag IV 03/04/22 21:59 100 mls/hr Q24H22 MANJULA Administration Azithromycin 500 mg in 250 mls @ 250 mls/hr 02/24/22 10:00 03/02/22 10:31 Zithromax 500 Mg/ 250 Ml Nacl Premix IV 03/26/22 09:59 250 mls/hr Q24H10 MANJULA Administration Ceftriaxone Sodium/Dextrose Confirm 02/23/22 22:12 Rocephin 1 Gm-D5w 50 Ml Bag Administered 02/23/22 22:13 Dose 1 g in 50 mls @ ud IV .STK-MED ONE Insulin Human Lispro 0 unit 02/26/22 09:19 Insulin Lispro 1 Unit SQ 03/28/22 09:18 UD PRN HYPERGLYCEMIA Methylprednisolone Sodium Succinate Confirm 02/23/22 18:40 Methylprednis Sod Succ 125 Mg/2 Ml Vial Administered 02/23/22 18:41 Dose 125 mg .ROUTE .STK-MED ONE Methylprednisolone Sodium Succinate 80 mg 02/26/22 12:00 02/28/22 06:24 Methylprednisolone Sod Suc 40m 40 Mg/Ml Vial IV 03/28/22 11:59 80 mg Q6HT MANJULA Administration Methylprednisolone Sodium Succinate 80 mg 02/28/22 14:00 03/02/22 05:26 Methylprednisolone Sod Suc 40m 40 Mg/Ml Vial IV 03/30/22 13:59 80 mg Q8HT MANJULA Administration Non-Formulary Medication 1 each 02/23/22 20:15 Hold Metformin Products For 48hrs 02/25/22 20:14 [facility] [place] Fluticasone/Salmeterol 2 puff 03/01/22 19:00 03/02/22 06:56 Fluticasone/Salmeterol 115/21 - 120 Puff Common Canister IH 03/31/22 18:59 2 puff BIDRT MANJULA Administration Sterile Water Confirm 02/23/22 18:40 Water For Injection,Sterile 10 Ml Vial Administered 02/23/22 18:41 Dose 10 ml IJ .STK-MED ONE Sterile Water Confirm 03/01/22 20:38 Water For Injection,Sterile 10 Ml Vial Administered 03/01/22 20:39 Dose 10 ml IJ .STK-MED ONE Intake & Output (Last 24 hours) 02/28/22 03/01/22 03/02/22 03/03/22 11:59 11:59 11:59 11:59 Intake Total 1660 1520 1660 560 Output Total 2075 400 Balance -415 1120 1660 560 Weight 95.7 kg 94.8 kg 94.8 kg Laboratory Results (Last 24 hours) 03/02/22 03/02/22 03/02/22 11:40 07:18 04:45 WBC RBC Hgb Hct MCV MCH MCHC RDW Plt Count MPV Sodium 133 L Potassium 4.7 Chloride 97 L Carbon Dioxide 35 H Anion Gap 4.6 L BUN 23 H Creatinine 0.64 L Estimated GFR > 60.0 Glucose 137 H POC Glucometer 172 H 121 H Calcium 8.2 L Total Bilirubin 0.30 AST 31 ALT 82 H Alkaline Phosphatase 64 Serum Total Protein 6.4 Albumin 3.0 L 03/02/22 03/01/22 04:45 20:34 WBC 13.0 H RBC 6.19 H Hgb 16.5 Hct 56.0 H MCV 90.5 MCH 26.7 MCHC 29.5 L RDW 13.5 Plt Count 175 MPV 9.3 Sodium Potassium Chloride Carbon Dioxide Anion Gap BUN Creatinine Estimated GFR Glucose POC Glucometer 192 H Calcium Total Bilirubin AST ALT Alkaline Phosphatase Serum Total Protein Albumin Orders (Last 24 hours) Category Date Time Status Discharge Routine Discharge 03/02/22 Ordered CHEST 1 VIEW (PORTABLE) Routine Exams 03/02/22 07:00 Completed CBC AM.LAB Lab 03/02/22 04:45 Completed CMP AM.LAB Lab 03/02/22 04:45 Completed POCT GLUCOSE Stat Lab 03/01/22 20:34 Completed POCT GLUCOSE Stat Lab 03/02/22 07:18 Completed POCT GLUCOSE Stat Lab 03/02/22 11:40 Completed Fluticasone/Salmeterol 115/21 [Advair Hfa 115/21 Common Med 03/01/22 19:00 Discontinued canister*] 2 puff IH BIDRT Water For Injection,Sterile [Sterile H2O 10 ml] Med 03/01/22 20:38 Disc ontinued 10 ml IJ .STK-MED ONE Patient Care Notes (Last 24 hours) 03/02/22 09:02 Case Management Note by Berta Jules S/W PATIENT- HE DENIES ANY NEW NEEDS AT TIME OF DC. HE REPORTS HE HAS A NEB MACHINE AT HOME. HE DECLINES HHC AT THIS TIME. PRIMARY RN GIVEN PULSE OX TO SEND HOME WITH PATIENT AT TIME OF DC Initialized on 03/02/22 09:02 - END OF NOTE 03/02/22 08:48 Case Management Note by Berta Jules HOME OXYGEN ORDERED THRU [facility] AT THIS TIME Initialized on 03/02/22 08:48 - END OF NOTE - Vitals & Intake/Output Vital Signs: Vital Signs Temperature 98.0 F 03/02/22 11:50 Pulse Rate 95 H 03/02/22 13:16 Respiratory Rate 18 03/02/22 13:16 Blood Pressure 154/67 03/02/22 11:50 O2 Sat by Pulse Oximetry 91 L 03/02/22 13:16 Intake & Output: Intake & Output 02/28/22 03/01/22 03/02/22 03/03/22 11:59 11:59 11:59 11:59 Intake Total 1660 1520 1660 560 Output Total 2075 400 Balance -415 1120 1660 560 Weight 95.7 kg 94.8 kg 94.8 kg - Lab Result Diagrams: 03/02/22 04:45 03/02/22 04:45 Lab Results-Last 24 Hrs: Lab Results-Last 24 Hours 03/01/22 03/02/22 03/02/22 Range/Units 20:34 04:45 04:45 WBC 13.0 H (4.0-10.5) x10^3/uL RBC 6.19 H (4.1-5.6) x10^6/uL Hgb 16.5 (12.5-18.0) g/dL Hct 56.0 H (42-50) % MCV 90.5 (78-100) fL MCH 26.7 (26-32) pg MCHC 29.5 L (32-36) g/dL RDW 13.5 (11.5-14.0) % Plt Count 175 (150-450) x10^3/uL MPV 9.3 (7.5-11.0) fL Sodium 133 L (137-145) mmol/L Potassium 4.7 (3.5-5.1) mmol/L Chloride 97 L (98-107) mmol/L Carbon Dioxide 35 H (22-30) mmol/L Anion Gap 4.6 L (5-15) MEQ/L BUN 23 H (9-20) mg/dL Creatinine 0.64 L (0.66-1.25) mg/dL Estimated GFR > 60.0 ML/MIN Glucose 137 H (74-106) mg/dL POC Glucometer 192 H (74 to 106) mg/dL Calcium 8.2 L (8.4-10.2) mg/dL Total Bilirubin 0.30 (0.2-1.3) mg/dL AST 31 (17-59) U/L ALT 82 H (0-50) U/L Alkaline Phosphatase 64 (38-126) U/L Serum Total Protein 6.4 (6.3-8.2) g/dL Albumin 3.0 L (3.5-5.0) g/dL 03/02/22 03/02/22 Range/Units 07:18 11:40 WBC (4.0-10.5) x10^3/uL RBC (4.1-5.6) x10^6/uL Hgb (12.5-18.0) g/dL Hct (42-50) % MCV (78-100) fL MCH (26-32) pg MCHC (32-36) g/dL RDW (11.5-14.0) % Plt Count (150-450) x10^3/uL MPV (7.5-11.0) fL Sodium (137-145) mmol/L Potassium (3.5-5.1) mmol/L Chloride (98-107) mmol/L Carbon Dioxide (22-30) mmol/L Anion Gap (5-15) MEQ/L BUN (9-20) mg/dL Creatinine (0.66-1.25) mg/dL Estimated GFR ML/MIN Glucose (74-106) mg/dL POC Glucometer 121 H 172 H (74 to 106) mg/dL Calcium (8.4-10.2) mg/dL Total Bilirubin (0.2-1.3) mg/dL AST (17-59) U/L ALT (0-50) U/L Alkaline Phosphatase (38-126) U/L Serum Total Protein (6.3-8.2) g/dL Albumin (3.5-5.0) g/dL Micro Results-Entire Visit: Microbiology 02/23/22 22:00 Blood Culture Gram Stain - Final Blood Not Reportable Blood Culture - Final NO GROWTH 02/23/22 21:55 Blood Culture Gram Stain - Final Blood Not Reportable Blood Culture - Final NO GROWTH Accuchecks Date 03/02/22 Date 03/02/22 Date 03/01/22 Time 11:54 Time 07:36 Time 20:45 - Radiology Exams Ordered Rad Exams-Entire Visit: Radiology Procedures Category Date Time Status CHEST 1 VIEW (PORTABLE) Routine Exams 03/02/22 07:00 Completed - Procedures and Test Procedures and Tests throughout Hospitalization: Therapy Orders & Screens 02/23/22 19:37 BiPap/CPAP ROUTINE Comment: 02/23/22 21:35 Respiratory Therapy Consult ROUTINE Comment: Reason For Exam: 02/24/22 00:15 RT Screen per Nursing Assess ONCE Comment: Protocol Order Physician Instructions: Greater than 3 points order RT Admission Screen Reason For Exam: Triggered on Admission Diagnosis: Pneumonia Diagnosis: Pneumonia Pneumonia: Yes Home O2: No Asthma: No CHF: No Home CPAP/BIPAP: No Home Nebs/MDI: Yes: albuterol inhaler Total Points: 8 Smoking Cessation Education ONCE Comment: Diagnosis: Pneumonia Smoking Status: Current every day smoker Have you smoked in the past 12 months: Yes Approximately how many cigarettes per day: 1 pack Do you dip or chew tobacco: No 02/24/22 01:00 Oxygen Oxymask LPM 10 lpm Comment: Diagnosis: Pneumonia 02/24/22 18:52 Oxygen Oxymizer LPM 5 lpm Comment: Diagnosis: severe shortness of breath for 2 days 02/27/22 06:48 Oxygen Nasal Cannula 2 lpm Comment: Diagnosis: severe shortness of breath for 2 days Discharge Exam General Appearance: no apparent distress, alert Neurologic Exam: alert, oriented x 3, cooperative, normal mood/affect, nml cerebellar function, sensation nml, No motor deficits Eye Exam: PERRL, EOMI, eyes nml inspection Ears, Nose, Throat Exam: normal ENT inspection, pharynx normal, moist mucous membranes Neck Exam: normal inspection, non-tender, supple, full range of motion Respiratory Exam: diminished breath sounds, No respiratory distress Cardiovascular Exam: regular rate/rhythm, normal heart sounds Gastrointestinal/Abdomen Exam: soft, No tenderness, No mass Male Genitalia Exam: deferred Rectal Exam: deferred Back Exam: normal inspection, normal range of motion, No CVA tenderness, No vertebral tenderness Extremity Exam: normal inspection, normal range of motion Skin Exam: normal color, warm, dry Final Diagnosis/Problem List - Final Discharge Diagnosis/Problem (1) Pneumonia Status: Resolved Priority: High Code(s): J18.9 - PNEUMONIA, UNSPECIFIED ORGANISM (2) Acute hypoxemic respiratory failure Status: Resolved Code(s): J96.01 - ACUTE RESPIRATORY FAILURE WITH HYPOXIA (3) Acute exacerbation of chronic obstructive airways disease Status: Resolved Assessment & Plan: Last Vital Signs Temp 98.0 F 03/02/22 11:50 Pulse 95 H 03/02/22 13:16 Resp 18 03/02/22 13:16 BP 154/67 03/02/22 11:50 Pulse Ox 91 L 03/02/22 13:16 Allergies diazepam [From Valium] Adverse Reaction (Verified 02/24/22 00:16) Intake & Output 03/02/22 03/03/22 11:59 11:59 Intake Total 1660 560 Balance 1660 560 Weight 94.8 kg Orders 03/02/22 Discharge Routine Lab Tests 03/01/22 03/02/22 03/02/22 20:34 04:45 04:45 WBC 13.0 H RBC 6.19 H Hgb 16.5 Hct 56.0 H MCV 90.5 MCH 26.7 MCHC 29.5 L RDW 13.5 Plt Count 175 MPV 9.3 Sodium 133 L Potassium 4.7 Chloride 97 L Carbon Dioxide 35 H Anion Gap 4.6 L BUN 23 H Creatinine 0.64 L Estimated GFR > 60.0 Glucose 137 H POC Glucometer 192 H Calcium 8.2 L Total Bilirubin 0.30 AST 31 ALT 82 H Alkaline Phosphatase 64 Serum Total Protein 6.4 Albumin 3.0 L 03/02/22 03/02/22 07:18 11:40 WBC RBC Hgb Hct MCV MCH MCHC RDW Plt Count MPV Sodium Potassium Chloride Carbon Dioxide Anion Gap BUN Creatinine Estimated GFR Glucose POC Glucometer 121 H 172 H Calcium Total Bilirubin AST ALT Alkaline Phosphatase Serum Total Protein Albumin Code(s): J44.1 - CHRONIC OBSTRUCTIVE PULMONARY DISEASE W (ACUTE) EXACERBATION (4) COPD (chronic obstructive pulmonary disease) Status: Acute (5) Diabetes mellitus Status: Acute Code(s): E11.9 - TYPE 2 DIABETES MELLITUS WITHOUT COMPLICATIONS - Discharge Discharge Date: 03/02/22 Disposition: Home, Self-Care Condition: Stable Prescriptions: New Fluticasone/Salmeterol 115/21 [Advair Hfa 115/21 Common canister*] 2 puff IH BIDRT #1 inhaler Albuterol/Ipratropium 3ml Neb* [DUONEB 0.5-3 MG/3 ml Neb] 3 ml IH Q6HRT #1 misc Prednisone 10 mg [Deltasone 10 mg] 10 mg PO BID 30 Days #60 tablet Nicotine 21 mg [Nicoderm CQ 21 MG] 21 mg TOP DAILY 30 Days #30 patch Instructions: Oxygen Therapy, Adult (DC), Quitting Smoking Additional Instructions: WEAR 3L/NC AT ALL TIMES CALL [facility] WHEN YOU GET HOME AT [phone] SO THEY CAN DELIVER YOUR HOME CONCENTRATOR Follow up with: UMANG IRWIN [ACTIVE STAFF] - 03/09/22 4:15 pm TWILA MOY MD [Primary Care Provider] - 03/09/22 9:15 am (WILL BE SEEN AT THE [place] OFFICE. )
== END 2022-03-02 14:15 | disposition home or self-care (01) | DRG 193 ==
LOC: ED 17:41 → MED SURG 23:55 → OBSVTOIN 02-24 12:00 → MED SURG 02-28 09:30
PROVIDERS: ADMIT General Practice; ATTEND General Practice
DX: J18.9 Pneumonia, unspecified organism (principal); J96.01 Acute respiratory failure with hypoxia; J44.1 Chronic obstructive pulmonary disease with (acute) exacerbation; E11.65 Type 2 diabetes mellitus with hyperglycemia; I25.2 Old myocardial infarction; Z72.0 Tobacco use; Z20.828 Contact with and (suspected) exposure to other viral communicable diseases
CPT/HCPCS: 0241U; 36000; 36415; 36600; 71045; 71260; 80048; 80053; 82375; 82803; 82947; 83036; 83605; 83735; 83880; 84484; 85025; 85027; 85379; 85610; 85730; 87040; 90662; 93005; 93268; 94002; 94003; 94640; 94762; 96374; 99285; 99291; G0008; J0456; J0696; J1650; J2920; J2930; A9270-GY

== ENCOUNTER 2022-04-02 18:16 | Inpatient (IN) | payer MEDICARE ==
[2022-04-02] MEDS ORDERED: solu-MEDROL 125 MG, Sterile H2O 10 ml 2 ML IV ONE ×2 (18:34)
--- NOTE | 2022-04-02 18:34 | ERPHSYRPT ---
- History of Present Illness Time Seen by Provider: 04/02/22 18:20 Source: patient, family Exam Limitations: clinical condition Patient Subjective Stated Complaint: SOB Triage Nursing Assessment: Patient brought back to ED per w/c and transferred to bed per self. Patient A+O X.3 Patient's skin pink and diaphoretic. Patient states he was sitting at home and became SOB. Patient wears home O2 at 3 liters per N/C. Patient also complains of chest pain 07/13. Lungs noted to be diminished throughout. Patient complains of non productive cough. Physician History: This is a 67-year-old gentleman who has chronic tobacco abuse and has recently stopped smoking and is wearing a nicotine patch. Patient was seen here for the same issue on 02/24/2022. In the last couple of days patient has had increased symptoms of nonproductive cough and worsening shortness of breath as well as some sharp substernal central nonradiating chest pain. Patient wears 3 L oxygen via nasal cannula. He has history of COPD. Timing/Duration: day(s) (2) Activities at Onset: none Severity of Dyspnea-Max: moderate Severity of Dyspnea-Current: moderate Possible Cause: frequent episodes Modifying Factors: Improves With: coughing, oxygen Associated Symptoms: cough, chest pain/discomfort, wheezing Allergies/Adverse Reactions: diazepam [From Valium] Adverse Reaction (Verified 04/02/22 18:17) Hx Tetanus, Diphtheria Vaccination/Date Given: No Hx Influenza Vaccination/Date Given: Yes Hx Pneumococcal Vaccination/Date Given: No Immunizations Up to Date: Yes Travel Risk - International Travel Have you traveled outside of the country in past 3 weeks: No - Coronavirus Screening Are you exhibiting any of the following symptoms?: No Close contact with a COVID-19 positive Pt in past 14-21 Days: No - Vaccine Status Have you recieved a Covid-19 vaccination: Yes 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[employer] - Vaccination Dates Date of 2cond Vaccination (if applicable): unknown - Review of Systems Constitutional: No Symptoms Eyes: No Symptoms Ears, Nose, & Throat: No Symptoms Respiratory: Cough, Dyspnea Cardiac: Chest Pain Abdominal/Gastrointestinal: No Symptoms Genitourinary Symptoms: No Symptoms Musculoskeletal: No Symptoms Skin: No Symptoms Neurological: No Symptoms Psychological: No Symptoms Endocrine: No Symptoms Hematologic/Lymphatic: No Symptoms Immunological/Allergic: No Symptoms All Other Systems: Reviewed and Negative - Past Medical History Pertinent Past Medical History: Yes Neurological History: No Pertinent History ENT History: No Pertinent History Cardiac History: Myocardial Infarction ([place]) Respiratory History: COPD Endocrine Medical History: Diabetes Type II Musculoskeletal History: No Pertinent History GI Medical History: No Pertinent History History: No Pertinent History Psycho-Social History: No Pertinent History Male Reproductive Disorders: Prostate Problems - Past Surgical History Past Surgical History: Yes Neuro Surgical History: No Pertinent History Cardiac: No Pertinent History Respiratory: No Pertinent History Gastrointestinal: No Pertinent History Genitourinary: No Pertinent History Musculoskeletal: No Pertinent History Male Surgical History: No Pertinent History - Social History Smoking Status: Former smoker Exposure to second hand smoke: Yes Drug Use: none Patient Lives Alone: No - Nursing Vital Signs Nursing Vital Signs: Initial Vital Signs Temperature 98.4 F 04/02/22 18:18 Pulse Rate 110 H 04/02/22 18:18 Respiratory Rate 18 04/02/22 18:18 Blood Pressure 137/78 04/02/22 18:18 O2 Sat by Pulse Oximetry 93 L 04/02/22 18:18 Pain Scale Pain Intensity 0 - Physical Exam General Appearance: mild distress, alert, anxiety, obese Eye Exam: PERRL/EOMI, eyes nml inspection Ears, Nose, Throat Exam: hearing grossly normal, normal ENT inspection, normal pharynx Neck Exam: normal inspection, non-tender, supple, full range of motion Respiratory Exam: chest tenderness, respiratory distress (Mild to moderate), airway intact, wheezing (Mild diffuse expiratory wheezing) Cardiovascular/Chest Exam: tachycardia Abdominal/Gastrointestinal Exam: soft, normal bowel sounds, No tenderness Rectal Exam: not done Extremity Exam: non-tender, normal range of motion, normal inspection, no calf tenderness, no pedal edema, pelvis stable Neurologic Exam: alert, oriented x 3, 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 Within the artifact there does not appear to me to be an acute STEMI. There is no significant change from twelve-lead EKG dated 02/24/2022. We will repeat a twelve-lead EKG after the patient's respiratory status has improved.) Ordered Tests: Active Orders 24 hr Category Date Time Status EKG-ER Only STAT Care 04/02/22 18:34 Active IV Insertion STAT Care 04/02/22 18:34 Active Pulse Oximetry (ED) STAT Care 04/02/22 18:34 Active CHEST 1 VIEW (PORTABLE) Stat Exams 04/02/22 18:34 Taken CHEST WITH CONTRAST [CT] Stat Exams 04/02/22 19:48 Taken CBC W DIFF Stat Lab 04/02/22 18:30 Completed CMP Stat Lab 04/02/22 18:30 Completed D-DIMER QUANTITATIVE Stat Lab 04/02/22 18:30 Completed NT PRO BNP Stat Lab 04/02/22 18:30 Completed TROPONIN Q4H Lab 04/02/22 18:30 Completed TROPONIN Q4H Lab 04/02/22 22:45 Ordered TROPONIN Q4H Lab 04/03/22 02:45 Ordered Respiratory Therapy Assessment DAILY RT 04/02/22 19:13 Active Respiratory Therapy Consult ONCE RT 04/02/22 18:35 Completed Transfer Order Routine Transfer 04/02/22 Ordered Medication Summary Generic Name Dose Route Start Last Admin Trade Name Freq PRN Reason Stop Dose Admin Levofloxacin/Dextrose 500 mg in 100 mls @ 100 mls/hr 04/02/22 21:49 04/02/22 21:53 Levofloxacin 500mg/100ml D5w IV 04/02/22 22:48 100 mls/hr STAT STA 100 mls/hr Administration Discontinued Medications Generic Name Dose Route Start Last Admin Trade Name Freq PRN Reason Stop Dose Admin Albuterol/Ipratropium Confirm 04/02/22 18:58 Ipratropium/Albuterol Sulfate 3 Ml Ampul.Neb Administered 04/02/22 18:59 Dose 3 ml IH .STK-MED ONE Albuterol/Ipratropium 3 ml 04/02/22 19:12 04/02/22 19:01 Ipratropium/Albuterol Sulfate 3 Ml Ampul.Neb IH 04/02/22 19:13 3 ml STAT ONE Administration Methylprednisolone Sodium 0 mg 04/02/22 18:34 04/02/22 18:43 Succinate 125 mg/ Sterile IV 04/02/22 18:35 125 mg Water 2 ml STAT ONE Administration Sodium Chloride 500 mls @ 500 mls/hr 04/02/22 19:48 04/02/22 21:32 Sodium Chloride 0.9% 500 Ml IV 04/02/22 20:47 Infused .Q1H ONE Infusion Sodium Chloride Confirm 04/02/22 20:06 Sodium Chloride 0.9% 500 Ml Administered 04/02/22 20:07 Dose 500 mls @ ud IV .STK-MED ONE Levofloxacin/Dextrose Confirm 04/02/22 21:52 Levofloxacin 500mg/100ml D5w Administered 04/02/22 21:53 Dose 500 mg in 100 mls @ ud IV .STK-MED ONE Methylprednisolone Sodium Succinate Confirm 04/02/22 18:43 Methylprednis Sod Succ 125 Mg/2 Ml Vial Administered 04/02/22 18:44 Dose 125 mg .ROUTE .STK-MED ONE Sterile Water Confirm 04/02/22 18:43 Water For Injection,Sterile 10 Ml Vial Administered 04/02/22 18:44 Dose 10 ml IJ .STK-MED ONE Lab/Rad Data: Laboratory Result Diagrams 04/02/22 18:30 04/02/22 18:30 Laboratory Results 04/02/22 04/02/22 04/02/22 Range/Units 19:48 18:30 18:30 WBC (4.0-10.5) x10^3/uL RBC (4.1-5.6) x10^6/uL Hgb (12.5-18.0) g/dL Hct (42-50) % MCV (78-100) fL MCH (26-32) pg MCHC (32-36) g/dL RDW (11.5-14.0) % Plt Count (150-450) x10^3/uL MPV (7.5-11.0) fL Gran % (36.0-66.0) % Immature Gran % (Auto) (0.00-0.4) % Nucleat RBC Rel Count (0.00-0.1) % Eos # (Auto) (0-0.5) x10^3/uL Immature Gran # (Auto) (0.00-0.03) x10^3u/L Absolute Lymphs (auto) (1.0-4.6) x10^3/uL Absolute Monos (auto) (0.0-1.3) x10^3/uL Absolute Nucleated RBC (0.00-0.01) x10^3u/L Lymphocytes % (24.0-44.0) % Monocytes % (0.0-12.0) % Eosinophils % (0.00-5.0) % Basophils % (0.0-0.4) % Absolute Granulocytes (1.4-6.9) x10^3/uL Basophils # (0-0.4) x10^3/uL D-Dimer 0.99 H* (0.0-0.50) mg/L Sodium (137-145) mmol/L Potassium (3.5-5.1) mmol/L Chloride (98-107) mmol/L Carbon Dioxide (22-30) mmol/L Anion Gap (5-15) MEQ/L BUN (9-20) mg/dL Creatinine (0.66-1.25) mg/dL Estimated GFR ML/MIN Glucose (74-106) mg/dL Calcium (8.4-10.2) mg/dL Total Bilirubin (0.2-1.3) mg/dL AST (17-59) U/L ALT (0-50) U/L Alkaline Phosphatase (38-126) U/L Troponin I < 0.012 (0.000-0.034) ng/mL NT-Pro-B Natriuret Pep (0-900) pg/mL Serum Total Protein (6.3-8.2) g/dL Albumin (3.5-5.0) g/dL Influenza Type A Ag NEGATIVE (NEGATIVE) Influenza Type B Ag NEGATIVE (NEGATIVE) RSV (PCR) NEGATIVE (Negative) SARS-CoV-2 (PCR) NEGATIVE (NEGATIVE) 04/02/22 04/02/22 Range/Units 18:30 18:30 WBC 14.3 H (4.0-10.5) x10^3/uL RBC 6.23 H (4.1-5.6) x10^6/uL Hgb 16.6 (12.5-18.0) g/dL Hct 55.4 H (42-50) % MCV 88.9 (78-100) fL MCH 26.6 (26-32) pg MCHC 30.0 L (32-36) g/dL RDW 14.1 H (11.5-14.0) % Plt Count 188 (150-450) x10^3/uL MPV 9.7 (7.5-11.0) fL Gran % 93.3 H (36.0-66.0) % Immature Gran % (Auto) 0.4 (0.00-0.4) % Nucleat RBC Rel Count 0.0 (0.00-0.1) % Eos # (Auto) 0.02 (0-0.5) x10^3/uL Immature Gran # (Auto) 0.06 H (0.00-0.03) x10^3u/L Absolute Lymphs (auto) 0.34 L (1.0-4.6) x10^3/uL Absolute Monos (auto) 0.51 (0.0-1.3) x10^3/uL Absolute Nucleated RBC 0.00 (0.00-0.01) x10^3u/L Lymphocytes % 2.4 L (24.0-44.0) % Monocytes % 3.6 (0.0-12.0) % Eosinophils % 0.1 (0.00-5.0) % Basophils % 0.2 (0.0-0.4) % Absolute Granulocytes 13.29 H (1.4-6.9) x10^3/uL Basophils # 0.03 (0-0.4) x10^3/uL D-Dimer (0.0-0.50) mg/L Sodium 137 (137-145) mmol/L Potassium 4.1 (3.5-5.1) mmol/L Chloride 99 (98-107) mmol/L Carbon Dioxide 33 H (22-30) mmol/L Anion Gap 9.3 (5-15) MEQ/L BUN 20 (9-20) mg/dL Creatinine 0.74 (0.66-1.25) mg/dL Estimated GFR > 60.0 ML/MIN Glucose 144 H (74-106) mg/dL Calcium 9.1 (8.4-10.2) mg/dL Total Bilirubin 0.90 (0.2-1.3) mg/dL AST 36 (17-59) U/L ALT 47 (0-50) U/L Alkaline Phosphatase 119 (38-126) U/L Troponin I (0.000-0.034) ng/mL NT-Pro-B Natriuret Pep 119 (0-900) pg/mL Serum Total Protein 8.0 (6.3-8.2) g/dL Albumin 4.1 (3.5-5.0) g/dL Influenza Type A Ag (NEGATIVE) Influenza Type B Ag (NEGATIVE) RSV (PCR) (Negative) SARS-CoV-2 (PCR) (NEGATIVE) - Progress Progress: improved Air Movement: fair Progress Note: 04/02/22 19:47 Chest x-ray shows no acute cardiopulmonary process. There may be a tiny right pleural effusion present 04/02/22 21:50 CTA of chest is negative for pulmonary embolus. There is minimal residual left lower lobe pneumonia present. 04/02/22 21:56 Medical decision making: This patient presents with hypoxia, tachycardia, leukocytosis and residual left lower lobe pneumonia. I think the patient will benefit by being placed in observation for intravenous antibiotics, intravenous steroids and scheduled breathing treatments and evaluation by respiratory therapy. I spoke with Dr. Bustamante who is covering for Dr. Stiven Boucher. Dr. Stiven Boucher comes on and approximately an hour and I will be putting Dr. Stiven Boucher's name as admitting physician. Blood Culture(s) Obtained: Yes Antibiotics given: Yes Discussed with Dr.: Rivera (Who is covering for Dr. Saleem until 11 PM. I will be putting Dr. Saleem is the admitting physician.) Counseled pt/family regarding: lab results, diagnosis, need for follow-up, rad results - Departure Departure Disposition: Observation Clinical Impression: Left lower lobe pneumonia, Hypoxia, Tachycardia Condition: Fair Critical Care Time: Yes Critical Care Time(excluding separately billable procedures): Critical 30-74 mins (40 minutes) Referrals: TWILA MOY MD [Primary Care Provider] - Follow up/PCP as directed
[2022-04-02 18:43] LABS: Absolute Neutrophil Ct (ANC) 13.29 x10^3/uL (1.4-6.9); Basophil (Absolute #) 0.03 x10^3/uL (0-0.4); Eosinophil % 0.1 % (0.00-5.0); Eosinophil (Absolute #) 0.02 x10^3/uL (0-0.5); Hematocrit 55.4 % (42-50); Hemoglobin 16.6 g/dL (12.5-18.0); Lymphocyte (Absolute #) 0.34 x10^3/uL (1.0-4.6); Lymphocytes % 2.4 % (24.0-44.0); Mean Cell Volume 88.9 fL (78-100); Mean Corpuscular Hemoglobin 26.6 pg (26-32); Mean Platelet Volume 9.7 fL (7.5-11.0); Monocyte (Absolute #) 0.51 x10^3/uL (0.0-1.3); Monocytes % 3.6 % (0.0-12.0); Neutrophil % 93.3 % (36.0-66.0); Platelet Count 188 x10^3/uL (150-450); Red Blood Count 6.23 x10^6/uL (4.1-5.6); Red Cell Distribution Width 14.1 % (11.5-14.0); White Blood Count 14.3 x10^3/uL (4.0-10.5)
[2022-04-02] MEDS ORDERED: solu-MEDROL ONE (18:43)
[2022-04-02] MEDS ORDERED: Sterile H2O 10 ml IJ ONE (18:43)
[2022-04-02] MEDS ORDERED: DUONEB 0.5-3 MG/3 ml Neb IH ONE ×2 (18:58→19:12)
[2022-04-02 19:05] LABS: ALBUMIN 4.1 g/dL (3.5-5.0); ALKALINE PHOSPHATASE 119 U/L (38-126); ANION GAP 9.3 MEQ/L (5-15); BLOOD UREA NITROGEN 20 mg/dL (9-20); CHLORIDE 99 mmol/L (98-107); Calcium 9.1 mg/dL (8.4-10.2); Carbon Dioxide 33 mmol/L (22-30); Creatinine 1 0.74 mg/dL (0.66-1.25); EST GLOMERULAR FILTRATION RATE > 60.0 ML/MIN; Glucose 144 mg/dL (74-106); NT PRO BNP 119 pg/mL (0-900); Potassium 4.1 mmol/L (3.5-5.1); SGOT/AST 36 U/L (17-59); SGPT/ALT 47 U/L (0-50); SODIUM 137 mmol/L (137-145)
[2022-04-02] MEDS ORDERED: Sodium Chloride 0.9% 500 ML 500 ML IV ONE ×2 (19:48→20:06)
[2022-04-02 20:27] LABS: INFLUENZA A NEGATIVE (NEGATIVE); INFLUENZA B NEGATIVE (NEGATIVE); RESPIRATORY SYNCTIAL VIRUS NEGATIVE (Negative); SARS-CoV-2 Xpert Express NEGATIVE (NEGATIVE)
[2022-04-02] MEDS ORDERED: HOLD METFORMIN PRODUCTS FOR 48 HOURS MC SCH (20:30)
[2022-04-02] MEDS ORDERED: Levofloxacin 500MG/100ML D5W 500 MG/100 ML BAG IV STA (21:49)
[2022-04-02] MEDS ORDERED: Levofloxacin 500MG/100ML D5W 500 MG/100 ML BAG IV ONE (21:52)
[2022-04-02] MEDS ORDERED: Sodium Chloride 0.9% 1000 ML 1,000 ML IV SCH (23:03)
[2022-04-02] MEDS ORDERED: Zofran 4 MG/2 ML VIAL IV PRN (23:03)
[2022-04-02] MEDS ORDERED: TYLENOL 325 MG PO PRN (23:03)
[2022-04-03] MEDS: PROVENTIL 2.5 MG/3 ML NEB IH SCH ×4 (00:17→18:35)
[2022-04-03 04:24] LABS: ALBUMIN 3.6 g/dL (3.5-5.0); ALKALINE PHOSPHATASE 92 U/L (38-126); ANION GAP 9.4 MEQ/L (5-15); BLOOD UREA NITROGEN 19 mg/dL (9-20); CHLORIDE 100 mmol/L (98-107); Calcium 8.8 mg/dL (8.4-10.2); Carbon Dioxide 30 mmol/L (22-30); Creatinine 1 0.68 mg/dL (0.66-1.25); EST GLOMERULAR FILTRATION RATE > 60.0 ML/MIN; Glucose 149 mg/dL (74-106); NT PRO BNP 127 pg/mL (0-900); Potassium 4.2 mmol/L (3.5-5.1); SGOT/AST 29 U/L (17-59); SGPT/ALT 40 U/L (0-50); SODIUM 135 mmol/L (137-145); Total Protein 6.6 g/dL (6.3-8.2)
[2022-04-03 05:01] LABS: Absolute Neutrophil Ct (ANC) 11.15 x10^3/uL (1.4-6.9); Basophil (Absolute #) 0.02 x10^3/uL (0-0.4); Eosinophil (Absolute #) 0 x10^3/uL (0-0.5); Hematocrit 52.2 % (42-50); Hemoglobin 15.7 g/dL (12.5-18.0); Lymphocyte (Absolute #) 0.28 x10^3/uL (1.0-4.6); Lymphocytes % 2.4 % (24.0-44.0); Mean Cell Volume 89.7 fL (78-100); Mean Corpuscular Hgb Concent. 30.1 g/dL (32-36); Mean Platelet Volume 9.8 fL (7.5-11.0); Monocyte (Absolute #) 0.22 x10^3/uL (0.0-1.3); Monocytes % 1.9 % (0.0-12.0); Neutrophil % 94.9 % (36.0-66.0); Platelet Count 172 x10^3/uL (150-450); Red Blood Count 5.82 x10^6/uL (4.1-5.6); Red Cell Distribution Width 13.9 % (11.5-14.0); White Blood Count 11.7 x10^3/uL (4.0-10.5)
[2022-04-03] MEDS: solu-MEDROL 80 MG, Sterile H2O 10 ml 2 ML IV SCH ×6 (06:50→21:06)
[2022-04-03] MEDS ORDERED: solu-MEDROL ONE (06:52)
[2022-04-03] MEDS ORDERED: Sterile H2O 10 ml IJ ONE (06:53)
[2022-04-03] MEDS: Advair Hfa 115/21 Common canister IH SCH ×2 (07:27→18:35)
[2022-04-03 07:37] LABS: Slide Review 1 YES
--- NOTE | 2022-04-03 08:46 | XRAY ---
Indication: Short of breath. Elevated d-dimer. Multiple contiguous axial images obtained through the chest using 100 cc Isovue 370 contrast and PE protocol. Comparison: February 23, 2022 Good opacification of the pulmonary arteries. No pulmonary embolus. Heart not enlarged. Aorta remains mildly arteriosclerotic without aneurysm/dissection. Stable small mediastinal and bilateral hilar calcified nodes. No pathologic mediastinal/hilar lymphadenopathy. Lungs again demonstrate diffuse pulmonary emphysema with tiny scattered calcified granulomas. Previous lingula and left lower lobe patchy airspace disease improved with mild residual. No suspicious pulmonary mass, consolidation, or effusion. Bony thorax intact. Limited upper abdomen again demonstrates tiny hepatic/splenic calcified granulomas. Impression: 1. Continued negative pulmonary embolus. 2. Improving lingula and left lower lobe pneumonia with mild residual. 3. Again chronic findings including pulmonary emphysema, arteriosclerotic disease, and old granulomatous disease.
--- NOTE | 2022-04-03 08:47 | XRAY ---
Indication: Short of breath. Comparison: March 02, 2022 Portable chest demonstrates slight improving left mid to lower lung interstitial alveolar opacities with minimal residual. Remaining chest unchanged again demonstrating COPD and tiny calcified granulomas. Heart not enlarged. No new cardiopulmonary abnormalities.
--- NOTE | 2022-04-03 12:38 | PCM.HP ---
History of Present Illness - Chief Complaint Chief Complaint: LLL pneumonia History of Present Illness: is a 67 year old male pt of Dr. Granados with chronic TOB use (recently stopped), DM, and COPD who came to ER with SOB. He was found to have improved pna compared with recent stay, but was hypoxic and admitted to [facility]. wBC 14.3 initially, but today are 11.7. Pt is a somewhat difficult historian; he was at [facility] 02/24/22 and felt that he fully recovered from that episode. He started seeing Dr. Rian Ayon. He went [employer] and ran out of O2, and since then has had SOB. Also c/o palpitations, which he thinks may have been due to panic attack. C/o 1-05/15 sharp substernal chest pain with cough. - Review of Systems Respiratory: Cough, Short Of Breath All Other Systems: Reviewed and Negative Medications & Allergies Home Medications: Home Medication List Albuterol/Ipratropium 3ml Neb* [DUONEB 0.5-3 MG/3 ml Neb] 3 ml IH Q6HRT #1 misc 03/02/22 [Rx Confirmed 04/02/22] Fluticasone/Salmeterol 115/21 [Advair Hfa 115/21 Common canister*] 2 puff IH BIDRT #1 inhaler 03/02/22 [Rx Confirmed 04/02/22] Nicotine 21 mg [Nicoderm CQ 21 MG] 21 mg TOP DAILY 30 Days #30 patch 03/02/22 [Rx Confirmed 04/02/22] Prednisone 10 mg [Deltasone 10 mg] 10 mg PO BID 30 Days #60 tablet 03/02/22 [Rx Confirmed 04/02/22] Allergies/Adverse Reactions: Allergies Allergy/AdvReac Type Severity Reaction Status Date / Time diazepam [From Valium] AdvReac Verified 04/02/22 18:17 - Past Medical History Past Medical History: Yes Neurological History: No Pertinent History ENT History: No Pertinent History Cardiac History: Myocardial Infarction ([place]) Respiratory History: COPD Endocrine Medical History: Diabetes Type II Musculoskelatal History: No Pertinent History GI Medical History: No Pertinent History History: No Pertinent History Pyscho-Social History: No Pertinent History Male Reproductive Disorders: Prostate Problems - Past Surgical History Past Surgical History: Yes Neuro Surgical History: No Pertinent History Cardiac History: No Pertinent History Respiratory Surgery: No Pertinent History GI Surgical History: No Pertinent History Genitourinary Surgical Hx: No Pertinent History Musculskeletal Surgical Hx: No Pertinent History Male Surgical History: No Pertinent History - Social History Smoking Status: Former smoker Exposure to second hand smoke: Yes Alcohol: None Drug Use: none - Physical Exam Vital Signs: Vital Signs - 24 hr Temp Pulse Resp BP Pulse Ox 04/03/22 12:00 98.0 F 78 18 120/69 90 L 04/03/22 07:58 97.6 F 85 17 170/77 90 L 04/03/22 07:28 84 20 92 L 04/03/22 04:00 97.5 F 83 20 143/68 90 L 04/03/22 00:20 96.6 F 91 H 20 121/60 91 L 04/03/22 00:17 99 H 24 91 L 04/02/22 22:04 88 20 156/74 99 04/02/22 22:02 93 L 04/02/22 21:11 92 H 17 156/74 97 04/02/22 20:11 92 H 18 156/77 99 04/02/22 19:01 100 H 32 H 92 L 04/02/22 18:43 92 L 04/02/22 18:18 98.4 F 110 H 28 H 137/78 93 L General Appearance: no apparent distress, alert Neurologic Exam: oriented x 3, cooperative Eye Exam: eyes nml inspection Ears, Nose, Throat Exam: moist mucous membranes Neck Exam: normal inspection, No lymphadenopathy, No subcutaneous emphysema, No thyromegaly Respiratory Exam: diminished breath sounds (poor to fair AE), prolonged expirations, wheezing (faint scattered), No crackles/rales, No rhonchi Gastrointestinal/Abdomen Exam: soft, normal bowel sounds, No tenderness, No mass, No guarding, No rebound Back Exam: normal inspection, No rash Extremity Exam: normal inspection, No pedal edema, No swelling Results - Labs Lab/Micro Results: Lab Results-Last 24 Hours 04/02/22 04/02/22 04/02/22 Range/Units 18:30 18:30 18:30 WBC 14.3 H (4.0-10.5) x10^3/uL RBC 6.23 H (4.1-5.6) x10^6/uL Hgb 16.6 (12.5-18.0) g/dL Hct 55.4 H (42-50) % MCV 88.9 (78-100) fL MCH 26.6 (26-32) pg MCHC 30.0 L (32-36) g/dL RDW 14.1 H (11.5-14.0) % Plt Count 188 (150-450) x10^3/uL MPV 9.7 (7.5-11.0) fL Gran % 93.3 H (36.0-66.0) % Immature Gran % (Auto) 0.4 (0.00-0.4) % Nucleat RBC Rel Count 0.0 (0.00-0.1) % Eos # (Auto) 0.02 (0-0.5) x10^3/uL Immature Gran # (Auto) 0.06 H (0.00-0.03) x10^3u/L Absolute Lymphs (auto) 0.34 L (1.0-4.6) x10^3/uL Absolute Monos (auto) 0.51 (0.0-1.3) x10^3/uL Absolute Nucleated RBC 0.00 (0.00-0.01) x10^3u/L Lymphocytes % 2.4 L (24.0-44.0) % Monocytes % 3.6 (0.0-12.0) % Eosinophils % 0.1 (0.00-5.0) % Basophils % 0.2 (0.0-0.4) % Absolute Granulocytes 13.29 H (1.4-6.9) x10^3/uL Basophils # 0.03 (0-0.4) x10^3/uL D-Dimer 0.99 H* (0.0-0.50) mg/L Sodium 137 (137-145) mmol/L Potassium 4.1 (3.5-5.1) mmol/L Chloride 99 (98-107) mmol/L Carbon Dioxide 33 H (22-30) mmol/L Anion Gap 9.3 (5-15) MEQ/L BUN 20 (9-20) mg/dL Creatinine 0.74 (0.66-1.25) mg/dL Estimated GFR > 60.0 ML/MIN Glucose 144 H (74-106) mg/dL POC Glucometer (74 to 106) mg/dL Calcium 9.1 (8.4-10.2) mg/dL Total Bilirubin 0.90 (0.2-1.3) mg/dL AST 36 (17-59) U/L ALT 47 (0-50) U/L Alkaline Phosphatase 119 (38-126) U/L Troponin I (0.000-0.034) ng/mL NT-Pro-B Natriuret Pep 119 (0-900) pg/mL Serum Total Protein 8.0 (6.3-8.2) g/dL Albumin 4.1 (3.5-5.0) g/dL Influenza Type A Ag (NEGATIVE) Influenza Type B Ag (NEGATIVE) RSV (PCR) (Negative) SARS-CoV-2 (PCR) (NEGATIVE) Slides for Path Review 04/02/22 04/02/22 04/02/22 Range/Units 18:30 19:48 22:52 WBC (4.0-10.5) x10^3/uL RBC (4.1-5.6) x10^6/uL Hgb (12.5-18.0) g/dL Hct (42-50) % MCV (78-100) fL MCH (26-32) pg MCHC (32-36) g/dL RDW (11.5-14.0) % Plt Count (150-450) x10^3/uL MPV (7.5-11.0) fL Gran % (36.0-66.0) % Immature Gran % (Auto) (0.00-0.4) % Nucleat RBC Rel Count (0.00-0.1) % Eos # (Auto) (0-0.5) x10^3/uL Immature Gran # (Auto) (0.00-0.03) x10^3u/L Absolute Lymphs (auto) (1.0-4.6) x10^3/uL Absolute Monos (auto) (0.0-1.3) x10^3/uL Absolute Nucleated RBC (0.00-0.01) x10^3u/L Lymphocytes % (24.0-44.0) % Monocytes % (0.0-12.0) % Eosinophils % (0.00-5.0) % Basophils % (0.0-0.4) % Absolute Granulocytes (1.4-6.9) x10^3/uL Basophils # (0-0.4) x10^3/uL D-Dimer (0.0-0.50) mg/L Sodium (137-145) mmol/L Potassium (3.5-5.1) mmol/L Chloride (98-107) mmol/L Carbon Dioxide (22-30) mmol/L Anion Gap (5-15) MEQ/L BUN (9-20) mg/dL Creatinine (0.66-1.25) mg/dL Estimated GFR ML/MIN Glucose (74-106) mg/dL POC Glucometer (74 to 106) mg/dL Calcium (8.4-10.2) mg/dL Total Bilirubin (0.2-1.3) mg/dL AST (17-59) U/L ALT (0-50) U/L Alkaline Phosphatase (38-126) U/L Troponin I < 0.012 < 0.012 (0.000-0.034) ng/mL NT-Pro-B Natriuret Pep (0-900) pg/mL Serum Total Protein (6.3-8.2) g/dL Albumin (3.5-5.0) g/dL Influenza Type A Ag NEGATIVE (NEGATIVE) Influenza Type B Ag NEGATIVE (NEGATIVE) RSV (PCR) NEGATIVE (Negative) SARS-CoV-2 (PCR) NEGATIVE (NEGATIVE) Slides for Path Review 04/03/22 04/03/22 04/03/22 Range/Units 03:41 03:41 03:41 WBC 11.7 H (4.0-10.5) x10^3/uL RBC 5.82 H (4.1-5.6) x10^6/uL Hgb 15.7 (12.5-18.0) g/dL Hct 52.2 H (42-50) % MCV 89.7 (78-100) fL MCH 27.0 (26-32) pg MCHC 30.1 L (32-36) g/dL RDW 13.9 (11.5-14.0) % Plt Count 172 (150-450) x10^3/uL MPV 9.8 (7.5-11.0) fL Gran % 94.9 H (36.0-66.0) % Immature Gran % (Auto) 0.6 H (0.00-0.4) % Nucleat RBC Rel Count 0.0 (0.00-0.1) % Eos # (Auto) 0 (0-0.5) x10^3/uL Immature Gran # (Auto) 0.07 H (0.00-0.03) x10^3u/L Absolute Lymphs (auto) 0.28 L (1.0-4.6) x10^3/uL Absolute Monos (auto) 0.22 (0.0-1.3) x10^3/uL Absolute Nucleated RBC 0.00 (0.00-0.01) x10^3u/L Lymphocytes % 2.4 L (24.0-44.0) % Monocytes % 1.9 (0.0-12.0) % Eosinophils % 0.0 (0.00-5.0) % Basophils % 0.2 (0.0-0.4) % Absolute Granulocytes 11.15 H (1.4-6.9) x10^3/uL Basophils # 0.02 (0-0.4) x10^3/uL D-Dimer (0.0-0.50) mg/L Sodium 135 L (137-145) mmol/L Potassium 4.2 (3.5-5.1) mmol/L Chloride 100 (98-107) mmol/L Carbon Dioxide 30 (22-30) mmol/L Anion Gap 9.4 (5-15) MEQ/L BUN 19 (9-20) mg/dL Creatinine 0.68 (0.66-1.25) mg/dL Estimated GFR > 60.0 ML/MIN Glucose 149 H (74-106) mg/dL POC Glucometer (74 to 106) mg/dL Calcium 8.8 (8.4-10.2) mg/dL Total Bilirubin 0.60 (0.2-1.3) mg/dL AST 29 (17-59) U/L ALT 40 (0-50) U/L Alkaline Phosphatase 92 (38-126) U/L Troponin I < 0.012 (0.000-0.034) ng/mL NT-Pro-B Natriuret Pep 127 (0-900) pg/mL Serum Total Protein 6.6 (6.3-8.2) g/dL Albumin 3.6 (3.5-5.0) g/dL Influenza Type A Ag (NEGATIVE) Influenza Type B Ag (NEGATIVE) RSV (PCR) (Negative) SARS-CoV-2 (PCR) (NEGATIVE) Slides for Path Review YES 04/03/22 04/03/22 Range/Units 09:09 11:36 WBC (4.0-10.5) x10^3/uL RBC (4.1-5.6) x10^6/uL Hgb (12.5-18.0) g/dL Hct (42-50) % MCV (78-100) fL MCH (26-32) pg MCHC (32-36) g/dL RDW (11.5-14.0) % Plt Count (150-450) x10^3/uL MPV (7.5-11.0) fL Gran % (36.0-66.0) % Immature Gran % (Auto) (0.00-0.4) % Nucleat RBC Rel Count (0.00-0.1) % Eos # (Auto) (0-0.5) x10^3/uL Immature Gran # (Auto) (0.00-0.03) x10^3u/L Absolute Lymphs (auto) (1.0-4.6) x10^3/uL Absolute Monos (auto) (0.0-1.3) x10^3/uL Absolute Nucleated RBC (0.00-0.01) x10^3u/L Lymphocytes % (24.0-44.0) % Monocytes % (0.0-12.0) % Eosinophils % (0.00-5.0) % Basophils % (0.0-0.4) % Absolute Granulocytes (1.4-6.9) x10^3/uL Basophils # (0-0.4) x10^3/uL D-Dimer (0.0-0.50) mg/L Sodium (137-145) mmol/L Potassium (3.5-5.1) mmol/L Chloride (98-107) mmol/L Carbon Dioxide (22-30) mmol/L Anion Gap (5-15) MEQ/L BUN (9-20) mg/dL Creatinine (0.66-1.25) mg/dL Estimated GFR ML/MIN Glucose (74-106) mg/dL POC Glucometer 129 H 134 H (74 to 106) mg/dL Calcium (8.4-10.2) mg/dL Total Bilirubin (0.2-1.3) mg/dL AST (17-59) U/L ALT (0-50) U/L Alkaline Phosphatase (38-126) U/L Troponin I (0.000-0.034) ng/mL NT-Pro-B Natriuret Pep (0-900) pg/mL Serum Total Protein (6.3-8.2) g/dL Albumin (3.5-5.0) g/dL Influenza Type A Ag (NEGATIVE) Influenza Type B Ag (NEGATIVE) RSV (PCR) (Negative) SARS-CoV-2 (PCR) (NEGATIVE) Slides for Path Review Accuchecks Date 04/03/22 Date 04/03/22 Time 12: Time 11:00 - Radiology Impressions Radiology Exams & Impressions: Radiology Procedures Category Date Time Status CHEST 1 VIEW (PORTABLE) Stat Exams 04/02/22 18:34 Completed CHEST WITH CONTRAST [CT] Stat Exams 04/02/22 19:48 Completed - Other Procedures and Tests Respiratory Therapy 04/02/22 19:13 Respiratory Therapy Assessment DAILY 04/02/22 23:03 Oxygen Nasal Cannula 3 lpm 04/02/22 23:08 Respiratory MDI BID Assessment/Plan (1) Hypoxia Current Visit: Yes Status: Acute Assessment & Plan: on 6L [place] - at home is on 3 L [place] Code(s): R09.02 - HYPOXEMIA (2) Left lower lobe pneumonia Current Visit: Yes Status: Acute Qualifiers: Pneumonia type: due to unspecified organism Qualified Code(s): J18.9 - Pneumonia, unspecified organism Assessment & Plan: on IV Levaquin. Will likely need several days of IV antibiotics. Would like to see his O2 return to pre-hospitalization levels if possible. Code(s): J18.9 - PNEUMONIA, UNSPECIFIED ORGANISM (3) COPD (chronic obstructive pulmonary disease) Current Visit: No Status: Acute Qualifiers: COPD type: unspecified COPD Qualified Code(s): J44.9 - Chronic obstructive pulmonary disease, unspecified Assessment & Plan: on steroid IV 80mg q8h. (4) Diabetes mellitus Current Visit: No Status: Acute Code(s): E11.9 - TYPE 2 DIABETES MELLITUS WITHOUT COMPLICATIONS
[2022-04-03] MEDS: Levofloxacin 500MG/100ML D5W 500 MG/100 ML BAG IV SCH (21:06)
[2022-04-04] MEDS: PROVENTIL 2.5 MG/3 ML NEB IH SCH ×4 (00:33→18:21)
[2022-04-04] MEDS: solu-MEDROL 80 MG, Sterile H2O 10 ml 2 ML IV SCH ×6 (05:50→21:59)
[2022-04-04] MEDS: Advair Hfa 115/21 Common canister IH SCH ×2 (07:14→18:31)
[2022-04-04] MEDS: NICODERM CQ 14 MG TOP SCH (14:54)
--- NOTE | 2022-04-04 15:14 | PCM.NOTE ---
Date and Time: 04/04/22 1510 Subjective Assessment: On 5L oxymask. Napping, but wakes easily to voice. Says breathing is "fair." - Review of Systems Constitutional: No Fever Respiratory: Cough, Short Of Breath Objective Exam General Appearance: no apparent distress, alert Neurologic Exam: oriented x 3, cooperative Skin Exam: normal color, warm, dry, No rash Eye Exam: eyes nml inspection Ears, Nose, Throat Exam: moist mucous membranes Neck Exam: normal inspection Respiratory Exam: diminished breath sounds (fair AE), wheezing (faint to mod wheezing throughout, expiratory) Cardiovascular Exam: regular rate/rhythm, normal heart sounds, No murmur Gastrointestinal/Abdomen Exam: soft, normal bowel sounds, distention (as usual), No tenderness, No mass, No guarding, No rebound Extremity Exam: normal inspection, No pedal edema, No swelling Back Exam: normal inspection, No rash OBJECTIVE DATA Vital Signs: Vital Signs - 24 hr Temp Pulse Resp BP Pulse Ox 04/04/22 13:17 92 H 18 93 L 04/04/22 12:00 98.0 F 73 16 120/58 90 L 04/04/22 07:49 97.5 F 73 16 125/57 92 L 04/04/22 07:15 82 20 93 L 04/04/22 04:00 98.0 F 82 20 146/69 93 L 04/04/22 00:33 85 22 92 L 04/04/22 00:00 97.7 F 84 22 145/82 92 L 04/03/22 19:58 97.9 F 83 22 127/77 91 L 04/03/22 18:35 82 20 94 L 04/03/22 16:00 97.7 F 86 18 159/65 90 L Pain Assessment - Last Documented Pain Intensity 0 Intake and Output: Intake & Output 04/02/22 04/03/22 04/04/22 04/05/22 11:59 11:59 11:59 11:59 Intake Total 2760 380 Output Total 400 2350 Balance -400 410 380 Weight 98.4 kg 98 kg Lab Results: Lab Results-Last 24 Hours 04/03/22 04/03/22 04/04/22 Range/Units 15:53 21:31 07:30 POC Glucometer 150 H 151 H 143 H (74 to 106) mg/dL 04/04/22 Range/Units 11:28 POC Glucometer 130 H (74 to 106) mg/dL Radiology Exams: Radiology Procedures Category Date Time Status CHEST 1 VIEW (PORTABLE) Stat Exams 04/02/22 18:34 Completed CHEST WITH CONTRAST [CT] Stat Exams 04/02/22 19:48 Completed Assessment/Plan (1) Left lower lobe pneumonia Current Visit: Yes Status: Acute Qualifiers: Pneumonia type: due to unspecified organism Qualified Code(s): J18.9 - Pneumonia, unspecified organism Assessment & Plan: He is on day #2 of levaquin, and on IV steroid 80mg q8h. Code(s): J18.9 - PNEUMONIA, UNSPECIFIED ORGANISM (2) Hypoxia Current Visit: Yes Status: Acute Assessment & Plan: improving slightly. Code(s): R09.02 - HYPOXEMIA (3) COPD (chronic obstructive pulmonary disease) Current Visit: No Status: Acute Qualifiers: COPD type: unspecified COPD Qualified Code(s): J44.9 - Chronic obstructive pulmonary disease, unspecified (4) Diabetes mellitus Current Visit: No Status: Acute Qualifiers: Diabetes mellitus type: type 2 Diabetes mellitus intermediate insulin use: without intermediate use Diabetes mellitus complication status: without complication Qualified Code(s): E11.9 - Type 2 diabetes mellitus without complications Code(s): E11.9 - TYPE 2 DIABETES MELLITUS WITHOUT COMPLICATIONS (5) Tobacco abuse Current Visit: No Status: Acute Assessment & Plan: Denied use at admission, but today says he smokes almost a pack a day of cig and just hasn't been since he is sick. Requesting patch- start 14mg nicoderm daily. Code(s): Z72.0 - TOBACCO USE
[2022-04-04] MEDS: Levofloxacin 500MG/100ML D5W 500 MG/100 ML BAG IV SCH (21:58)
[2022-04-05] MEDS: PROVENTIL 2.5 MG/3 ML NEB IH SCH ×4 (00:32→19:11)
[2022-04-05] MEDS: solu-MEDROL 80 MG, Sterile H2O 10 ml 2 ML IV SCH ×6 (05:20→21:53)
[2022-04-05 05:41] LABS: Absolute Neutrophil Ct (ANC) 13.68 x10^3/uL (1.4-6.9); Basophil (Absolute #) 0.02 x10^3/uL (0-0.4); Eosinophil (Absolute #) 0 x10^3/uL (0-0.5); Hematocrit 53.3 % (42-50); Hemoglobin 15.7 g/dL (12.5-18.0); Lymphocyte (Absolute #) 0.27 x10^3/uL (1.0-4.6); Lymphocytes % 1.9 % (24.0-44.0); Mean Cell Volume 91.3 fL (78-100); Mean Corpuscular Hemoglobin 26.9 pg (26-32); Mean Corpuscular Hgb Concent. 29.5 g/dL (32-36); Mean Platelet Volume 9.4 fL (7.5-11.0); Monocyte (Absolute #) 0.36 x10^3/uL (0.0-1.3); Monocytes % 2.5 % (0.0-12.0); Neutrophil % 94.5 % (36.0-66.0); Platelet Count 182 x10^3/uL (150-450); Red Blood Count 5.84 x10^6/uL (4.1-5.6); Red Cell Distribution Width 13.9 % (11.5-14.0); White Blood Count 14.5 x10^3/uL (4.0-10.5)
[2022-04-05 06:03] LABS: ANION GAP 7.5 MEQ/L (5-15); BLOOD UREA NITROGEN 24 mg/dL (9-20); CHLORIDE 95 mmol/L (98-107); Carbon Dioxide 36 mmol/L (22-30); EST GLOMERULAR FILTRATION RATE > 60.0 ML/MIN; Glucose 199 mg/dL (74-106); SODIUM 134 mmol/L (137-145)
[2022-04-05 06:14] LABS: Slide Review 1 YES
[2022-04-05] MEDS: Advair Hfa 115/21 Common canister IH SCH ×2 (07:12→19:11)
[2022-04-05] MEDS: NICODERM CQ 14 MG TOP SCH (09:50)
--- NOTE | 2022-04-05 12:47 | PCM.NOTE ---
Date and Time: 04/05/22 1245 Subjective Assessment: He is feeling better. Curly po. - Review of Systems Constitutional: No Fever Respiratory: Cough, Short Of Breath Objective Exam General Appearance: no apparent distress, alert Neurologic Exam: oriented x 3, cooperative Skin Exam: normal color, warm, dry, No rash Eye Exam: eyes nml inspection Ears, Nose, Throat Exam: moist mucous membranes Neck Exam: normal inspection, non-tender, No lymphadenopathy, No thyromegaly Respiratory Exam: diminished breath sounds (poor air exhcange, particularly in RLL), wheezing (scattered), No crackles/rales, No rhonchi Cardiovascular Exam: regular rate/rhythm, normal heart sounds, No murmur Gastrointestinal/Abdomen Exam: soft, normal bowel sounds, No tenderness, No mass, No guarding, No rebound Extremity Exam: normal inspection, No pedal edema, No swelling OBJECTIVE DATA Vital Signs: Vital Signs - 24 hr Temp Pulse Resp BP Pulse Ox 04/05/22 12:00 97.0 F 78 17 125/61 87 L 04/05/22 07:56 97.6 F 86 17 147/64 90 L 04/05/22 07:24 81 18 92 L 04/05/22 04:00 97.7 F 88 22 157/72 91 L 04/05/22 00:33 103 H 20 92 L 04/04/22 23:51 97.6 F 96 H 24 120/60 92 L 04/04/22 20:00 98.0 F 91 H 24 148/70 95 04/04/22 18:23 94 H 20 91 L 04/04/22 16:00 98.4 F 75 16 144/64 90 L 04/04/22 13:17 92 H 18 93 L Pain Assessment - Last Documented Pain Intensity 0 Intake and Output: Intake & Output 04/03/22 04/04/22 04/05/22 04/06/22 11:59 11:59 11:59 11:59 Intake Total 2760 1840 Output Total 400 2350 1350 Balance -400 410 490 Weight 98.4 kg 98 kg 98 kg Lab Results: Lab Results-Last 24 Hours 04/04/22 04/04/22 04/05/22 Range/Units 16:25 21:22 04:46 WBC 14.5 H (4.0-10.5) x10^3/uL RBC 5.84 H (4.1-5.6) x10^6/uL Hgb 15.7 (12.5-18.0) g/dL Hct 53.3 H (42-50) % MCV 91.3 (78-100) fL MCH 26.9 (26-32) pg MCHC 29.5 L (32-36) g/dL RDW 13.9 (11.5-14.0) % Plt Count 182 (150-450) x10^3/uL MPV 9.4 (7.5-11.0) fL Gran % 94.5 H (36.0-66.0) % Immature Gran % (Auto) 1.0 H (0.00-0.4) % Nucleat RBC Rel Count 0.0 (0.00-0.1) % Eos # (Auto) 0 (0-0.5) x10^3/uL Immature Gran # (Auto) 0.14 H (0.00-0.03) x10^3u/L Absolute Lymphs (auto) 0.27 L (1.0-4.6) x10^3/uL Absolute Monos (auto) 0.36 (0.0-1.3) x10^3/uL Absolute Nucleated RBC 0.00 (0.00-0.01) x10^3u/L Lymphocytes % 1.9 L (24.0-44.0) % Monocytes % 2.5 (0.0-12.0) % Eosinophils % 0.0 (0.00-5.0) % Basophils % 0.1 (0.0-0.4) % Absolute Granulocytes 13.68 H (1.4-6.9) x10^3/uL Basophils # 0.02 (0-0.4) x10^3/uL Sodium (137-145) mmol/L Potassium (3.5-5.1) mmol/L Chloride (98-107) mmol/L Carbon Dioxide (22-30) mmol/L Anion Gap (5-15) MEQ/L BUN (9-20) mg/dL Creatinine (0.66-1.25) mg/dL Estimated GFR ML/MIN Glucose (74-106) mg/dL POC Glucometer 161 H 126 H (74 to 106) mg/dL Calcium (8.4-10.2) mg/dL Slides for Path Review YES 04/05/22 04/05/22 04/05/22 Range/Units 04:46 06:53 11:58 WBC (4.0-10.5) x10^3/uL RBC (4.1-5.6) x10^6/uL Hgb (12.5-18.0) g/dL Hct (42-50) % MCV (78-100) fL MCH (26-32) pg MCHC (32-36) g/dL RDW (11.5-14.0) % Plt Count (150-450) x10^3/uL MPV (7.5-11.0) fL Gran % (36.0-66.0) % Immature Gran % (Auto) (0.00-0.4) % Nucleat RBC Rel Count (0.00-0.1) % Eos # (Auto) (0-0.5) x10^3/uL Immature Gran # (Auto) (0.00-0.03) x10^3u/L Absolute Lymphs (auto) (1.0-4.6) x10^3/uL Absolute Monos (auto) (0.0-1.3) x10^3/uL Absolute Nucleated RBC (0.00-0.01) x10^3u/L Lymphocytes % (24.0-44.0) % Monocytes % (0.0-12.0) % Eosinophils % (0.00-5.0) % Basophils % (0.0-0.4) % Absolute Granulocytes (1.4-6.9) x10^3/uL Basophils # (0-0.4) x10^3/uL Sodium 134 L (137-145) mmol/L Potassium 5.0 (3.5-5.1) mmol/L Chloride 95 L (98-107) mmol/L Carbon Dioxide 36 H (22-30) mmol/L Anion Gap 7.5 (5-15) MEQ/L BUN 24 H (9-20) mg/dL Creatinine 0.80 (0.66-1.25) mg/dL Estimated GFR > 60.0 ML/MIN Glucose 199 H (74-106) mg/dL POC Glucometer 115 H 143 H (74 to 106) mg/dL Calcium 9.0 (8.4-10.2) mg/dL Slides for Path Review Assessment/Plan (1) Left lower lobe pneumonia Current Visit: Yes Status: Acute Qualifiers: Pneumonia type: due to unspecified organism Qualified Code(s): J18.9 - Pneumonia, unspecified organism Assessment & Plan: ON day #3 levaquin with improvement. Code(s): J18.9 - PNEUMONIA, UNSPECIFIED ORGANISM (2) Hypoxia Current Visit: Yes Status: Acute Assessment & Plan: on 4L [place] Code(s): R09.02 - HYPOXEMIA (3) COPD (chronic obstructive pulmonary disease) Current Visit: No Status: Acute Qualifiers: COPD type: unspecified COPD Qualified Code(s): J44.9 - Chronic obstructive pulmonary disease, unspecified (4) Diabetes mellitus Current Visit: No Status: Acute Qualifiers: Diabetes mellitus type: type 2 Diabetes mellitus penitentiary insulin use: without edi programmer use Diabetes mellitus complication status: without compl ication Qualified Code(s): E11.9 - Type 2 diabetes mellitus without complications Code(s): E11.9 - TYPE 2 DIABETES MELLITUS WITHOUT COMPLICATIONS (5) Tobacco abuse Current Visit: No Status: Acute Code(s): Z72.0 - TOBACCO USE
[2022-04-05] MEDS: Levofloxacin 500MG/100ML D5W 500 MG/100 ML BAG IV SCH (21:53)
[2022-04-06] MEDS: PROVENTIL 2.5 MG/3 ML NEB IH SCH ×3 (00:10→14:17)
[2022-04-06 04:54] LABS: Absolute Neutrophil Ct (ANC) 15.02 x10^3/uL (1.4-6.9); Basophil (Absolute #) 0.04 x10^3/uL (0-0.4); Eosinophil (Absolute #) 0 x10^3/uL (0-0.5); Hematocrit 53.1 % (42-50); Hemoglobin 15.9 g/dL (12.5-18.0); Lymphocyte (Absolute #) 0.28 x10^3/uL (1.0-4.6); Lymphocytes % 1.7 % (24.0-44.0); Mean Cell Volume 90.2 fL (78-100); Mean Corpuscular Hgb Concent. 29.9 g/dL (32-36); Mean Platelet Volume 9.5 fL (7.5-11.0); Monocyte (Absolute #) 0.58 x10^3/uL (0.0-1.3); Monocytes % 3.6 % (0.0-12.0); Neutrophil % 93.3 % (36.0-66.0); Platelet Count 175 x10^3/uL (150-450); Red Blood Count 5.89 x10^6/uL (4.1-5.6); Red Cell Distribution Width 14.2 % (11.5-14.0); White Blood Count 16.1 x10^3/uL (4.0-10.5)
[2022-04-06 05:21] LABS: ANION GAP 7.9 MEQ/L (5-15); BLOOD UREA NITROGEN 24 mg/dL (9-20); CHLORIDE 96 mmol/L (98-107); Calcium 8.6 mg/dL (8.4-10.2); Carbon Dioxide 35 mmol/L (22-30); Creatinine 1 0.64 mg/dL (0.66-1.25); EST GLOMERULAR FILTRATION RATE > 60.0 ML/MIN; Glucose 176 mg/dL (74-106); Potassium 4.1 mmol/L (3.5-5.1); SODIUM 134 mmol/L (137-145)
[2022-04-06] MEDS ORDERED: solu-MEDROL ONE (06:08)
[2022-04-06 06:10] LABS: Slide Review 1 YES
[2022-04-06] MEDS: solu-MEDROL 80 MG, Sterile H2O 10 ml 2 ML IV SCH ×2 (06:22)
[2022-04-06] MEDS: Advair Hfa 115/21 Common canister IH SCH (07:16)
[2022-04-06] MEDS: NICODERM CQ 14 MG TOP SCH (09:42)
[2022-04-06] MEDS ORDERED: HUMALOG SQ PRN (12:03)
[2022-04-06 12:11] VITALS: BP 133/74
--- NOTE | 2022-04-06 12:13 | PCM.DS ---
Discharge Summary Date of Admission: 04/03/22 12:30 Admitting Physician: LUDY MOHR DO Primary Care Provider: TWILA MOY Allergies Allergies diazepam [From Valium] Adverse Reaction (Verified 04/02/22 18:17) Hospital Summary - Hospital Course Hospital Course: is a 67 year old male pt of Dr. Moy with chronic TOB use, DM, and COPD who came to ER with SOB. He was found to have improved pna compared with recent stay, but was hypoxic and [facility]. wBC 14.3 initially. Pt is a somewhat difficult historian; he was at [facility]22 and felt that he fully recovered from that episode. He started seeing Dr. Rian Ayon. He is on 3L O2 at home. Will need oxymask on discharge as he breathes throuhg his mouth often. Will send home on antibiotic (is on levaquin day #4 here - will give 7d total) and steroid (prednisone). His BS have been elevated, so will send in diabetic supplies to test tid while on prednisone, and humalog pen with low dose sliding scale. He will need to f/u in 1 week. - Vitals & Intake/Output Vital Signs: Vital Signs Temperature 98.0 F 04/06/22 07:34 Pulse Rate 82 04/06/22 07:34 Respiratory Rate 16 04/06/22 07:34 Blood Pressure 163/74 04/06/22 07:34 O2 Sat by Pulse Oximetry 88 L 04/06/22 07:34 Intake & Output: Intake & Output 04/04/22 04/05/22 04/06/22 04/07/22 11:59 11:59 11:59 11:59 Intake Total 2760 1840 940 Output Total 2350 1350 500 Balance 410 490 440 Weight 98 kg 98 kg 98.5 kg - Lab Result Diagrams: 04/06/22 04:31 04/06/22 04:31 Lab Results-Last 24 Hrs: Lab Results-Last 24 Hours 04/05/22 04/05/22 04/05/22 Range/Units 11:58 16:19 20:34 WBC (4.0-10.5) x10^3/uL RBC (4.1-5.6) x10^6/uL Hgb (12.5-18.0) g/dL Hct (42-50) % MCV (78-100) fL MCH (26-32) pg MCHC (32-36) g/dL RDW (11.5-14.0) % Plt Count (150-450) x10^3/uL MPV (7.5-11.0) fL Gran % (36.0-66.0) % Immature Gran % (Auto) (0.00-0.4) % Nucleat RBC Rel Count (0.00-0.1) % Eos # (Auto) (0-0.5) x10^3/uL Immature Gran # (Auto) (0.00-0.03) x10^3u/L Absolute Lymphs (auto) (1.0-4.6) x10^3/uL Absolute Monos (auto) (0.0-1.3) x10^3/uL Absolute Nucleated RBC (0.00-0.01) x10^3u/L Lymphocytes % (24.0-44.0) % Monocytes % (0.0-12.0) % Eosinophils % (0.00-5.0) % Basophils % (0.0-0.4) % Absolute Granulocytes (1.4-6.9) x10^3/uL Basophils # (0-0.4) x10^3/uL Sodium (137-145) mmol/L Potassium (3.5-5.1) mmol/L Chloride (98-107) mmol/L Carbon Dioxide (22-30) mmol/L Anion Gap (5-15) MEQ/L BUN (9-20) mg/dL Creatinine (0.66-1.25) mg/dL Estimated GFR ML/MIN Glucose (74-106) mg/dL POC Glucometer 143 H 177 H 120 H (74 to 106) mg/dL Calcium (8.4-10.2) mg/dL Slides for Path Review 04/06/22 04/06/22 04/06/22 Range/Units 04:31 04:31 07:17 WBC 16.1 H (4.0-10.5) x10^3/uL RBC 5.89 H (4.1-5.6) x10^6/uL Hgb 15.9 (12.5-18.0) g/dL Hct 53.1 H (42-50) % MCV 90.2 (78-100) fL MCH 27.0 (26-32) pg MCHC 29.9 L (32-36) g/dL RDW 14.2 H (11.5-14.0) % Plt Count 175 (150-450) x10^3/uL MPV 9.5 (7.5-11.0) fL Gran % 93.3 H (36.0-66.0) % Immature Gran % (Auto) 1.2 H (0.00-0.4) % Nucleat RBC Rel Count 0.0 (0.00-0.1) % Eos # (Auto) 0 (0-0.5) x10^3/uL Immature Gran # (Auto) 0.20 H (0.00-0.03) x10^3u/L Absolute Lymphs (auto) 0.28 L (1.0-4.6) x10^3/uL Absolute Monos (auto) 0.58 (0.0-1.3) x10^3/uL Absolute Nucleated RBC 0.00 (0.00-0.01) x10^3u/L Lymphocytes % 1.7 L (24.0-44.0) % Monocytes % 3.6 (0.0-12.0) % Eosinophils % 0.0 (0.00-5.0) % Basophils % 0.2 (0.0-0.4) % Absolute Granulocytes 15.02 H (1.4-6.9) x10^3/uL Basophils # 0.04 (0-0.4) x10^3/uL Sodium 134 L (137-145) mmol/L Potassium 4.1 (3.5-5.1) mmol/L Chloride 96 L (98-107) mmol/L Carbon Dioxide 35 H (22-30) mmol/L Anion Gap 7.9 (5-15) MEQ/L BUN 24 H (9-20) mg/dL Creatinine 0.64 L (0.66-1.25) mg/dL Estimated GFR > 60.0 ML/MIN Glucose 176 H (74-106) mg/dL POC Glucometer 130 H (74 to 106) mg/dL Calcium 8.6 (8.4-10.2) mg/dL Slides for Path Review YES 04/06/22 Range/Units 11:54 WBC (4.0-10.5) x10^3/uL RBC (4.1-5.6) x10^6/uL Hgb (12.5-18.0) g/dL Hct (42-50) % MCV (78-100) fL MCH (26-32) pg MCHC (32-36) g/dL RDW (11.5-14.0) % Plt Count (150-450) x10^3/uL MPV (7.5-11.0) fL Gran % (36.0-66.0) % Immature Gran % (Auto) (0.00-0.4) % Nucleat RBC Rel Count (0.00-0.1) % Eos # (Auto) (0-0.5) x10^3/uL Immature Gran # (Auto) (0.00-0.03) x10^3u/L Absolute Lymphs (auto) (1.0-4.6) x10^3/uL Absolute Monos (auto) (0.0-1.3) x10^3/uL Absolute Nucleated RBC (0.00-0.01) x10^3u/L Lymphocytes % (24.0-44.0) % Monocytes % (0.0-12.0) % Eosinophils % (0.00-5.0) % Basophils % (0.0-0.4) % Absolute Granulocytes (1.4-6.9) x10^3/uL Basophils # (0-0.4) x10^3/uL Sodium (137-145) mmol/L Potassium (3.5-5.1) mmol/L Chloride (98-107) mmol/L Carbon Dioxide (22-30) mmol/L Anion Gap (5-15) MEQ/L BUN (9-20) mg/dL Creatinine (0.66-1.25) mg/dL Estimated GFR ML/MIN Glucose (74-106) mg/dL POC Glucometer 141 H (74 to 106) mg/dL Calcium (8.4-10.2) mg/dL Slides for Path Review Micro Results-Entire Visit: Accuchecks Date 04/06/22 Date 04/05/22 Date 01/01/23 Time 07:39 Time 20:59 Time 17:00 - Procedures and Test Procedures and Tests throughout Hospitalization: Therapy Orders & Screens 04/02/22 18:35 Respiratory Therapy Consult ONCE Comment: Reason For Exam: 04/02/22 19:13 Respiratory Therapy Assessment DAILY Comment: 04/02/22 23:03 EKG REPEAT IN AM Comment: Oxygen Nasal Cannula 3 lpm Comment: Respiratory Therapy Consult ROUTINE Comment: Reason For Exam: 04/02/22 23:08 Respiratory MDI BID Comment: 04/03/22 01:10 Smoking Cessation Education ONCE Comment: Diagnosis: LLL pneumonia Smoking Status: Former smoker Have you smoked in the past 12 months: Yes Approximately how many cigarettes per day: 1 pack Do you dip or chew tobacco: No Discharge Exam General Appearance: no apparent distress, alert Neurologic Exam: oriented x 3, cooperative Eye Exam: eyes nml inspection Neck Exam: normal inspection Respiratory Exam: diminished breath sounds (fair to good air exchange), wheezing (scattered), No crackles/rales, No rhonchi Cardiovascular Exam: regular rate/rhythm, normal heart sounds, No murmur Gastrointestinal/Abdomen Exam: soft, normal bowel sounds, No tenderness, No mass, No guarding, No rebound Extremity Exam: normal inspection, No pedal edema, No swelling Skin Exam: normal color, warm, dry, No rash Final Diagnosis/Problem List - Final Discharge Diagnosis/Problem (1) Left lower lobe pneumonia Current Visit: Yes Status: Acute Assessment & Plan: Doing much better. Home on O2, levaquin x 3d, and prednisone x 5d. Probiotic. Home insulin SS as needed. Code(s): J18.9 - PNEUMONIA, UNSPECIFIED ORGANISM (2) Hypoxia Current Visit: Yes Status: Acute Code(s): R09.02 - HYPOXEMIA (3) COPD (chronic obstructive pulmonary disease) Current Visit: No Status: Chronic (4) Diabetes mellitus Current Visit: No Status: Chronic Code(s): E11.9 - TYPE 2 DIABETES MELLITUS WITHOUT COMPLICATIONS (5) Tobacco abuse Current Visit: No Status: Chronic Assessment & Plan: Pt needs to stop smoking. Code(s): Z72.0 - TOBACCO USE - Discharge Disposition: Home, Self-Care Condition: Stable Prescriptions: New Lactobacillus Acidophilus [Acidophilus TABLET] 1 tab PO BID 5 Days #10 tablet Prednisone 20 mg [Deltasone 20 mg] 20 mg PO DAILY #11 tablet Insulin Lispro [Humalog Kwikpen U-100] 5 unit SQ TID PRN 7 Days #1 unit PRN Reason: Hyperglycemia Levofloxacin [Levofloxacin 500 MG Tablet] 500 mg PO DAILY 3 Days #3 tablet Nicotine 14 mg [Nicoderm Cq 14 mg] 14 mg TOP Q24H10 #14 patch Continue Fluticasone/Salmeterol 115/21 [Advair Hfa 115/21 Common canister*] 2 puff IH BIDRT #1 inhaler Albuterol/Ipratropium 3ml Neb* [DUONEB 0.5-3 MG/3 ml Neb] 3 ml IH Q6HRT #1 misc Prednisone 10 mg [Deltasone 10 mg] 10 mg PO BID 30 Days #60 tablet Discontinued Nicotine 21 mg [Nicoderm CQ 21 MG] 21 mg TOP DAILY 30 Days #30 patch Follow up with: TWILA MOY MD [Primary Care Provider] -
[2022-04-06] MEDS ORDERED: solu-MEDROL 40 MG, Sterile H2O 10 ml 1 ML IV SCH ×2 (14:00)
[2022-04-06 16:14] VITALS: PULSE 102; O2SAT 91
[2022-04-06] MEDS ORDERED: Sodium Chloride 0.9% 1000 ML 1,000 ML ONE (17:43)
== END 2022-04-06 16:10 | disposition home or self-care (01) | DRG 195 ==
LOC: ED 18:16 → MED SURG 23:01 → OBSVTOIN 04-03 12:30
PROVIDERS: ADMIT Family Medicine; ATTEND General Practice
DX: J18.9 Pneumonia, unspecified organism (principal); R09.02 Hypoxemia; J44.9 Chronic obstructive pulmonary disease, unspecified; E11.9 Type 2 diabetes mellitus without complications; R00.2 Palpitations; Z72.0 Tobacco use; Z79.899 Other long term (current) drug therapy; Z20.828 Contact with and (suspected) exposure to other viral communicable diseases; Z99.81 Dependence on supplemental oxygen
CPT/HCPCS: 0241U; 36000; 36415; 71045; 71260; 80048; 80053; 82947; 83880; 84484; 85025; 85379; 93005; 94640; 94760; 96360; 96365; 96374; 99285; 99291; G0378; J1956; J2920; J2930; J7609; A9270-GY

== ENCOUNTER 2022-04-23 19:24 | Emergency (ER) | payer MEDICARE ==
[2022-04-23] MEDS ORDERED: MORPHINE SULFATE 4 MG INJ IV ONE (19:34)
[2022-04-23] MEDS ORDERED: Zofran 4 MG/2 ML VIAL IV ONE (19:34)
[2022-04-23] MEDS ORDERED: MORPHINE SULFATE 4 MG INJ ONE (19:44)
[2022-04-23] MEDS ORDERED: BABY ASPIRIN 81 MG CHEW ONE (19:44)
[2022-04-23] MEDS ORDERED: Zofran 4 MG/2 ML VIAL ONE (19:44)
[2022-04-23] MEDS ORDERED: BABY ASPIRIN 81 MG CHEW PO ONE (19:45)
[2022-04-23 19:51] LABS: Absolute Neutrophil Ct (ANC) 7.07 x10^3/uL (1.4-6.9); Basophil (Absolute #) 0.02 x10^3/uL (0-0.4); Eosinophil % 3.2 % (0.00-5.0); Eosinophil (Absolute #) 0.26 x10^3/uL (0-0.5); Hematocrit 48.4 % (42-50); Hemoglobin 14.7 g/dL (12.5-18.0); Lymphocyte (Absolute #) 0.32 x10^3/uL (1.0-4.6); Mean Cell Volume 90.8 fL (78-100); Mean Corpuscular Hemoglobin 27.6 pg (26-32); Mean Corpuscular Hgb Concent. 30.4 g/dL (32-36); Mean Platelet Volume 8.7 fL (7.5-11.0); Monocyte (Absolute #) 0.34 x10^3/uL (0.0-1.3); Monocytes % 4.2 % (0.0-12.0); Neutrophil % 87.8 % (36.0-66.0); Platelet Count 161 x10^3/uL (150-450); Red Blood Count 5.33 x10^6/uL (4.1-5.6); Red Cell Distribution Width 14.5 % (11.5-14.0); White Blood Count 8.1 x10^3/uL (4.0-10.5)
--- NOTE | 2022-04-23 20:13 | ERPHSYRPT ---
- History of Present Illness Time Seen by Provider: 04/23/22 19:26 Historian: patient Exam Limitations: no limitations Patient Subjective Stated Complaint: pt states I have had chest pain all day. I was just discharged here with pneumonia. Triage Nursing Assessment: pt came into the er via wheelchair; transfer to cot with ease; c/o CP; pt states 3/10 to mid chest; wheezing whitley throughout in all lobes; SOB present; strong whitley radial pulses and pedal pulses; tachycardic; skin PDW Physician History: 67-year-old male with history of COPD with chronic respiratory failure on 6 L oxygen, hypertension, hyperlipidemia presented in the ER with chief complaint of substernal chest pain since morning, moderate to severe sharp, nonradiating with associated mild increase in the shortness of breath than what he has at his [facility]. Patient also reports having nausea and 2-3 episodes of nonprojectile, nonbilious vomiting without any obvious abdominal pain. No fever or chills reported. Does have chronic cough which is not worse than usual. Does report having history of CAD but no stenting. Timing/Duration: today, constant, improved Activities at Onset: rest Quality: sharpness Location: substernal, epigastric Chest Pain Radiation: no radiation Severity of Pain-Max: severe Severity of Pain-Current: mild Modifying Factors: Improves With: nothing Prior Chest Pain/Cardiac Workup: heart attack Nitro Today/Relief: no nitro taken today Aspirin Treatment Today: no aspirin today Allergies/Adverse Reactions: diazepam [From Valium] Adverse Reaction (Verified 04/23/22 19:27) Hx Tetanus, Diphtheria Vaccination/Date Given: No Hx Influenza Vaccination/Date Given: Yes Hx Pneumococcal Vaccination/Date Given: No Travel Risk - International Travel Have you traveled outside of the country in past 3 weeks: No - Coronavirus Screening Are you exhibiting any of the following symptoms?: Yes Symptoms: Shortness of Breath Close contact with a COVID-19 positive Pt in past 14-21 Days: No - Vaccine Status Have you recieved a Covid-19 vaccination: Yes 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: [employer] - Vaccination Dates Date of 2cond Vaccination (if applicable): unknown - Review of Systems Constitutional: No Symptoms Eyes: No Symptoms Ears, Nose, & Throat: No Symptoms Respiratory: No Symptoms Cardiac: Chest Pain Abdominal/Gastrointestinal: Nausea, Vomiting Genitourinary Symptoms: No Symptoms Musculoskeletal: No Symptoms Skin: No Symptoms Neurological: No Symptoms Psychological: No Symptoms Endocrine: No Symptoms Hematologic/Lymphatic: No Symptoms Immunological/Allergic: No Symptoms - Past Medical History Pertinent Past Medical History: Yes Neurological History: No Pertinent History ENT History: No Pertinent History Cardiac History: Myocardial Infarction (IA) Respiratory History: COPD Endocrine Medical History: Diabetes Type II Musculoskeletal History: No Pertinent History GI Medical History: No Pertinent History History: No Pertinent History Psycho-Social History: No Pertinent History Male Reproductive Disorders: Prostate Problems - Past Surgical History Past Surgical History: Yes Neuro Surgical History: No Pertinent History Cardiac: No Pertinent History Respiratory: No Pertinent History Gastrointestinal: No Pertinent History Genitourinary: No Pertinent History Musculoskeletal: No Pertinent History Male Surgical History: No Pertinent History - Social History Smoking Status: Former smoker Exposure to second hand smoke: Yes Drug Use: none Patient Lives Alone: No - Nursing Vital Signs Nursing Vital Signs: Initial Vital Signs Temperature 97.3 F 04/23/22 19:27 Pulse Rate 100 H 04/23/22 19:27 Respiratory Rate 30 H 04/23/22 19:27 Blood Pressure 140/70 04/23/22 19:27 O2 Sat by Pulse Oximetry 95 04/23/22 19:27 Pain Scale Pain Intensity 3 - Physical Exam General Appearance: no apparent distress, alert Eye Exam: PERRL/EOMI Ears, Nose, Throat Exam: normal ENT inspection Neck Exam: normal inspection, non-tender, supple, full range of motion Respiratory Exam: accessory muscle use, wheezing Cardiovascular Exam: regular rate/rhythm, normal heart sounds Gastrointestinal/Abdomen Exam: soft, normal bowel sounds, tenderness (Minimal) Back Exam: normal inspection, normal range of motion Extremity Exam: normal inspection, normal range of motion Neurologic Exam: alert, oriented x 3, cooperative Skin Exam: normal color SpO2 Interpretation: O2 applied SpO2: 92 O2 Delivery: Nasal Cannula - Course EKG Interpreted by Me: RATE (86), Sinus Rhythm, NORMAL AXIS, NORMAL INTERVALS, Other (T elevation inferior leads) Ordered Tests: Medication Summary Discontinued Medications Generic Name Dose Route Start Last Admin Trade Name Freq PRN Reason Stop Dose Admin Aspirin Confirm 04/23/22 19:44 Aspirin 81 Mg Tab.Chew Administered 04/23/22 19:45 Dose 324 mg .ROUTE .STK-MED ONE Aspirin 324 mg 04/23/22 19:45 04/23/22 19:49 Aspirin 81 Mg Tab.Chew PO 04/23/22 19:46 324 mg STAT ONE Administration Morphine Sulfate 4 mg 04/23/22 19:34 04/23/22 19:44 Morphine Sulfate 4 Mg/Ml Injection IV 04/23/22 19:35 4 mg STAT ONE Administration Morphine Sulfate Confirm 04/23/22 19:44 Morphine Sulfate 4 Mg/Ml Injection Administered 04/23/22 19:45 Dose 4 mg .ROUTE .STK-MED ONE Ondansetron HCl 4 mg 04/23/22 19:34 04/23/22 19:45 Ondansetron Hcl 4 Mg/2 Ml Vial IV 04/23/22 19:35 4 mg STAT ONE Administration Ondansetron HCl Confirm 04/23/22 19:44 Ondansetron Hcl 4 Mg/2 Ml Vial Administered 04/23/22 19:45 Dose 4 mg .ROUTE .STK-MED ONE Lab/Rad Data: Laboratory Result Diagrams 04/23/22 19:35 04/23/22 19:35 Laboratory Results 04/23/22 04/23/22 04/23/22 Range/Units 20:24 19:45 19:35 WBC (4.0-10.5) x10^3/uL RBC (4.1-5.6) x10^6/uL Hgb (12.5-18.0) g/dL Hct (42-50) % MCV (78-100) fL MCH (26-32) pg MCHC (32-36) g/dL RDW (11.5-14.0) % Plt Count (150-450) x10^3/uL MPV (7.5-11.0) fL Gran % (36.0-66.0) % Immature Gran % (Auto) (0.00-0.4) % Nucleat RBC Rel Count (0.00-0.1) % Eos # (Auto) (0-0.5) x10^3/uL Immature Gran # (Auto) (0.00-0.03) x10^3u/L Absolute Lymphs (auto) (1.0-4.6) x10^3/uL Absolute Monos (auto) (0.0-1.3) x10^3/uL Absolute Nucleated RBC (0.00-0.01) x10^3u/L Lymphocytes % (24.0-44.0) % Monocytes % (0.0-12.0) % Eosinophils % (0.00-5.0) % Basophils % (0.0-0.4) % Absolute Granulocytes (1.4-6.9) x10^3/uL Basophils # (0-0.4) x10^3/uL D-Dimer 1.58 H* (0.0-0.50) mg/L Sodium (137-145) mmol/L Potassium (3.5-5.1) mmol/L Chloride (98-107) mmol/L Carbon Dioxide (22-30) mmol/L Anion Gap (5-15) MEQ/L BUN (9-20) mg/dL Creatinine (0.66-1.25) mg/dL Estimated GFR ML/MIN Glucose (74-106) mg/dL Lactic Acid 1.8 (0.4-2.0) Calcium (8.4-10.2) mg/dL Magnesium (1.6-2.3) mg/dL Total Bilirubin (0.2-1.3) mg/dL AST (17-59) U/L ALT (0-50) U/L Alkaline Phosphatase (38-126) U/L Creatine Kinase (55-170) U/L Troponin (0.00-0.03) ng/mL NT-Pro-B Natriuret Pep (0-900) pg/mL Serum Total Protein (6.3-8.2) g/dL Albumin (3.5-5.0) g/dL Amylase (30-110) U/L Lipase (23-300) U/L Urine Color Yellow (Yellow) Urine Appearance Clear (Clear) Urine pH 6.5 (4.6-8.0) Ur Specific [place] 1.025 (1.005-1.030) Urine Protein Trace A (Negative) Urine Glucose (UA) Negative (Negative) mg/dL Urine Ketones Trace A (Negative) Urine Blood Negative (Negative) Urine Nitrite Negative (Negative) Urine Bilirubin Negative (Negative) Urine Urobilinogen 1.0 A (0.2) mg/dL Ur Leukocyte Esterase Negative (Negative) U Hyaline Cast (Auto) NONE SEEN (0-2) /LPF Urine Microscopic RBC 0-2 (0-5) /HPF Urine Microscopic WBC 0-2 (0-5) /HPF Ur Epithelial Cells None Seen (None Seen) /HPF Urine Bacteria None Seen (None Seen) /HPF Urine Culture Reflexed NO (NO) Slides for Path Review 04/23/22 04/23/22 04/23/22 Range/Units 19:35 19:35 19:35 WBC 8.1 (4.0-10.5) x10^3/uL RBC 5.33 (4.1-5.6) x10^6/uL Hgb 14.7 (12.5-18.0) g/dL Hct 48.4 (42-50) % MCV 90.8 (78-100) fL MCH 27.6 (26-32) pg MCHC 30.4 L (32-36) g/dL RDW 14.5 H (11.5-14.0) % Plt Count 161 (150-450) x10^3/uL MPV 8.7 (7.5-11.0) fL Gran % 87.8 H (36.0-66.0) % Immature Gran % (Auto) 0.6 H (0.00-0.4) % Nucleat RBC Rel Count 0.0 (0.00-0.1) % Eos # (Auto) 0.26 (0-0.5) x10^3/uL Immature Gran # (Auto) 0.05 H (0.00-0.03) x10^3u/L Absolute Lymphs (auto) 0.32 L (1.0-4.6) x10^3/uL Absolute Monos (auto) 0.34 (0.0-1.3) x10^3/uL Absolute Nucleated RBC 0.00 (0.00-0.01) x10^3u/L Lymphocytes % 4.0 L (24.0-44.0) % Monocytes % 4.2 (0.0-12.0) % Eosinophils % 3.2 (0.00-5.0) % Basophils % 0.2 (0.0-0.4) % Absolute Granulocytes 7.07 H (1.4-6.9) x10^3/uL Basophils # 0.02 (0-0.4) x10^3/uL D-Dimer (0.0-0.50) mg/L Sodium 132 L (137-145) mmol/L Potassium 4.1 (3.5-5.1) mmol/L Chloride 92 L (98-107) mmol/L Carbon Dioxide 37 H (22-30) mmol/L Anion Gap 7.3 (5-15) MEQ/L BUN 11 (9-20) mg/dL Creatinine 0.69 (0.66-1.25) mg/dL Estimated GFR > 60.0 ML/MIN Glucose 141 H (74-106) mg/dL Lactic Acid (0.4-2.0) Calcium 8.8 (8.4-10.2) mg/dL Magnesium 2.1 (1.6-2.3) mg/dL Total Bilirubin 0.60 (0.2-1.3) mg/dL AST 39 (17-59) U/L ALT 38 (0-50) U/L Alkaline Phosphatase 91 (38-126) U/L Creatine Kinase 58 (55-170) U/L Troponin 0.01 (0.00-0.03) ng/mL NT-Pro-B Natriuret Pep 91.2 (0-900) pg/mL Serum Total Protein 7.9 (6.3-8.2) g/dL Albumin 3.8 (3.5-5.0) g/dL Amylase 75 (30-110) U/L Lipase 67 (23-300) U/L Urine Color (Yellow) Urine Appearance (Clear) Urine pH (4.6-8.0) Ur Specific [place] (1.005-1.030) Urine Protein (Negative) Urine Glucose (UA) (Negative) mg/dL Urine Ketones (Negative) Urine Blood (Negative) Urine Nitrite (Negative) Urine Bilirubin (Negative) Urine Urobilinogen (0.2) mg/dL Ur Leukocyte Esterase (Negative) U Hyaline Cast (Auto) (0-2) /LPF Urine Microscopic RBC (0-5) /HPF Urine Microscopic WBC (0-5) /HPF Ur Epithelial Cells (None Seen) /HPF Urine Bacteria (None Seen) /HPF Urine Culture Reflexed (NO) Slides for Path Review YES - Progress Progress: improved Air Movement: good Progress Note: 04/23/22 20:11 67-year-old male is evaluated in the ER for chest pain and shortness of breath since morning. Patient has a history of chronic respiratory failure secondary to COPD on 6 L oxygen. Patient reports shortness of breath is a little worse than usual. No fever or chills reported. Later on he started to have more pain in the lower substernal/epigastric area and vomited few times, nonprojectile, nonbilious and denies any abdominal pain or history of GERD. Initial EKG obtained showed some questionable changes in ST segment in inferior leads which got more pronounced on the second EKG. Discussed with Dr. [place] and Dr. Guzman at [facility] who recommended repeating EKG and getting troponins as it seems questionable and have no beds available and if has worsening of EKG picture or elevated troponin then update them. Patient continues to have chest pain. In the meanwhile [facility] was also consulted and they called back, I have Discussed with Dr. Valentin at [facility], reviewed EKG and patient history, and agreed with transfer. patient is given aspirin and morphine. Patient has inferior wall injury, will not do nitro and also no heparinization per accepting cardiology protocol. Chest pain is better on reevaluation. I have reviewed plan with patient and family who understand and agree with transfer. Blood Culture(s) Obtained: No Antibiotics given: No Counseled pt/family regarding: drug and/or alcohol abuse, lab results, diagnosis, need for follow-up - Departure Departure Disposition: Transfer Clinical Impression: STEMI (ST elevation myocardial infarction) Condition: Fair Critical Care Time: Yes Critical Care Time(excluding separately billable procedures): Critical 30-74 mins Referrals: TWILA MOY MD [Primary Care Provider] - Follow up/PCP as directed
[2022-04-23 20:40] VITALS: BP 141/78; PULSE 95
[2022-04-23 20:44] LABS: ALBUMIN 3.8 g/dL (3.5-5.0); ALKALINE PHOSPHATASE 91 U/L (38-126); AMYLASE 75 U/L (30-110); ANION GAP 7.3 MEQ/L (5-15); BLOOD UREA NITROGEN 11 mg/dL (9-20); CHLORIDE 92 mmol/L (98-107); CK-Creatinine Phosphokinase 58 U/L (55-170); Calcium 8.8 mg/dL (8.4-10.2); Carbon Dioxide 37 mmol/L (22-30); Creatinine 1 0.69 mg/dL (0.66-1.25); EST GLOMERULAR FILTRATION RATE > 60.0 ML/MIN; Glucose 141 mg/dL (74-106); LIPASE 67 U/L (23-300); MAGNESIUM 2.1 mg/dL (1.6-2.3); NT PRO BNP 91.2 pg/mL (0-900); Potassium 4.1 mmol/L (3.5-5.1); SGOT/AST 39 U/L (17-59); SGPT/ALT 38 U/L (0-50); SODIUM 132 mmol/L (137-145); Total Protein 7.9 g/dL (6.3-8.2)
[2022-04-23 21:52] LABS: Appearance Clear (Clear); Bacteria None Seen /HPF (None Seen); Bilirubin Negative (Negative); Blood Negative (Negative); Epithelial Cells None Seen /HPF (None Seen); Glucose, Urine Negative (Negative); Hyaline Casts NONE SEEN /LPF (0-2); Ketones Trace (Negative); Leukocyte Esterase Negative (Negative); Nitrite Negative (Negative); Ph 6.5 (4.6-8.0); Protein,Urine Dip Trace (Negative); RBC 0-2 /HPF (0-5); Specific Gravity 1.025 (1.005-1.030); WBC 0-2 /HPF (0-5)
[2022-04-23 21:54] LABS: ADD URINE CULTURE? NO (NO)
[2022-04-23 22:11] LABS: Slide Review 1 YES
--- NOTE | 2022-04-24 08:42 | XRAY ---
Indication: Chest pain. Comparison: April 02, 2022 Portable chest demonstrates interval worsening diffuse left lung interstitial alveolar opacities with new tiny effusion/subsegmental atelectasis. Stable COPD and tiny calcified granulomas. Remaining heart and right lung unremarkable.
[2022-04-25 17:57] VITALS: O2SAT 92
== END 2022-04-23 20:30 | disposition short-term general hospital (02) ==
LOC: ED 19:24
DX: I21.3 ST elevation (STEMI) myocardial infarction of unspecified site (principal); R07.9 Chest pain, unspecified; R06.02 Shortness of breath; R11.2 Nausea with vomiting, unspecified; I10 Essential (primary) hypertension; E78.5 Hyperlipidemia, unspecified; E11.9 Type 2 diabetes mellitus without complications
CPT/HCPCS: 36000; 36415; 71045; 80053; 81001; 82150; 82550; 83605; 83690; 83735; 83880; 84484; 85025; 85379; 93005; 96374; 96375; 99285; J2270; J2405; A9270-GY

== ENCOUNTER 2024-07-13 17:04 | Observation (INO) | payer MEDICARE ==
[2024-07-13] MEDS ORDERED: DUONEB 0.5-3 MG/3 ml Neb IH ONE ×2 (17:18→17:46)
[2024-07-13] MEDS: DUONEB 0.5-3 MG/3 ml Neb IH ONE ×2 (17:28→17:49)
[2024-07-13 17:37] LABS: A-aADO2 525; ABG HEMOGLOBIN 12.2; ABG POTASSIUM 4.3 (3.5-5.1); ARTERIAL BLD GAS O2 SATURATION 98.7 % (95-100); ARTERIAL BLOOD GAS BASE EXCESS 24.1 (-2.0-2.0); ARTERIAL BLOOD GAS FIO2 100 %; ARTERIAL BLOOD GAS PCO2 80 mmHg (35-45); ARTERIAL BLOOD GAS PO2 88 mmHg (75-100); ARTERIAL BLOOD GAS pH 7.43 (7.35-7.45); CARBOXYHEMOGLOBIN 1.7 % THgb (0.0-6.9); HCO3- 53.1 (22-28); HGB O2 SAT 96.5 g/dF (94-100); Lactic Acid 0.9 (0.4-2.0); Methhemoglobin 0.6 % (1.4-1.5); paO2 pAO1 0.14
[2024-07-13 17:38] LABS: ABG SITE LEFT BRACHIAL
[2024-07-13] MEDS ORDERED: Sterile H2O 10 ml IJ ONE (17:38)
[2024-07-13] MEDS ORDERED: solu-MEDROL ONE (17:38)
[2024-07-13] MEDS: solu-MEDROL 125 MG, Sterile H2O 10 ml 2 ML IV ONE (17:39)
[2024-07-13 17:44] LABS: Absolute Neutrophil Ct (ANC) 6.68 x10^3/uL (1.78-5.38); BASOPHIL % 0.2 % (0.2-1.2); Basophil (Absolute #) 0.02 x10^3/uL (0.01-0.08); Eosinophil % 1.9 % (0.8-7.0); Eosinophil (Absolute #) 0.15 x10^3/uL (0.04-0.54); Hematocrit 39.8 % (40.1-51.0); Hemoglobin 11.5 g/dL (13.7-17.5); IMMATURE GRAN # 0.03 x10^3u/L (0.001-0.031); IMMATURE GRAN % 0.4 % (0.001-0.429); Lymphocyte (Absolute #) 0.65 x10^3/uL (1.32-3.57); Mean Cell Volume 91.3 fL (79.0-92.2); Mean Corpuscular Hemoglobin 26.4 pg (25.7-32.2); Mean Corpuscular Hgb Concent. 28.9 g/dL (32.3-36.5); Mean Platelet Volume 9.9 fL (9.4-12.4); Monocyte (Absolute #) 0.55 x10^3/uL (0.30-0.82); Monocytes % 6.8 % (5.3-12.2); Neutrophil % 82.7 % (34.0-67.9); Platelet Count 150 x10^3/uL (163-337); Red Blood Count 4.36 x10^6/uL (4.63-6.08); Red Cell Distribution Width 12.6 % (11.6-14.4); White Blood Count 8.1 x10^3/uL (4.23-9.07)
[2024-07-13 18:01] LABS: ALBUMIN 3.9 g/dL (3.5-5.0); BILIRUBIN,TOTAL 0.8 mg/dL (0.2-1.3); Calcium 8.7 mg/dL (8.4-10.2); Creatinine 1 0.56 mg/dL (0.66-1.25); EST GLOMERULAR FILTRATION RATE 105.4 ML/MIN; MAGNESIUM 1.6 mg/dL (1.6-2.3); Potassium 4.4 mmol/L (3.5-5.1); Total Protein 7.6 g/dL (6.3-8.2)
[2024-07-13 18:10] LABS: ANION GAP 12.4 MEQ/L (5-15)
[2024-07-13 18:11] LABS: NT PRO BNPII 328 pg/mL (<300); TROPONIN < 0.012 ng/mL (0.000-0.033)
[2024-07-13] MEDS ORDERED: ZITHROMAX IV IV ONE (18:13)
[2024-07-13] MEDS ORDERED: ROCEPHIN 2 GM/100 ML NACL 2 GM/100 ML IVPB IV ONE (18:13)
[2024-07-13] MEDS ORDERED: Sodium Chloride 0.9% 250 ML 250 ML IV ONE (18:13)
--- NOTE | 2024-07-13 18:13 | ERPHSYRPT ---
- History of Present Illness Time Seen by Provider: 07/13/24 17:06 Source: patient, family Exam Limitations: no limitations Patient Subjective Stated Complaint: C/O SOB for 3-4 days. Denies any pain. Triage Nursing Assessment: Patient brought back to ER in a W/C. He is SOB and wearing 02 @ 6L per N/C. Skin is pale and cool. Mottled discoloration present near flanks. RT called to come to patient room. 02 sats 70% on his 6L per N/C. Started him on 15L per non-rebreather mask. Lungs diminished with expiratory wheezes present. Physician History: 69-year-old male with history of chronic respiratory failure secondary to COPD/tobacco use on 6 L oxygen presented to the ER with complaint of increasing cough and difficulty breathing for the last 3 to 4 days with no fever or chills. Patient reports using his routine med treatment but does not seem helping. Getting short of breath with few steps despite being on oxygen. Reports wheezing but denies any chest pain or palpitations. No fever or chills reported. Patient oxygen saturation is in the 70s on presentation in ER, placed on nonrebreather, neb treatment and improvement in low 90s. ABG showed pH of 7.4,. 2 of 88 and pCO2 of 80. Patient refusing to have BiPAP. Allergies/Adverse Reactions: diazepam [From Valium] Adverse Reaction (Verified 07/13/24 17:15) Hx Tetanus, Diphtheria Vaccination/Date Given: Yes Hx Influenza Vaccination/Date Given: No Hx Pneumococcal Vaccination/Date Given: Yes Travel Risk - International Travel Have you traveled outside of the country in past 3 weeks: No - Emerging Infectious Disease Are you exhibiting symptoms associated with any current EIDs: Yes Symptoms: Cough: New Onset, Shortness of Breath - Review of Systems Constitutional: Fatigue Eyes: No Symptoms Ears, Nose, & Throat: No Symptoms Respiratory: Cough, Dyspnea, Dyspnea on Exertion (DEUTSCH), Wheezing Cardiac: No Symptoms Abdominal/Gastrointestinal: No Symptoms Genitourinary Symptoms: No Symptoms Musculoskeletal: Myalgias Skin: No Symptoms Neurological: No Symptoms Endocrine: No Symptoms Hematologic/Lymphatic: No Symptoms - Past Medical History Pertinent Past Medical History: Yes Neurological History: No Pertinent History ENT History: No Pertinent History Cardiac History: High Cholesterol, Myocardial Infarction ([place]) Respiratory History: COPD Endocrine Medical History: Diabetes Type II Musculoskeletal History: No Pertinent History GI Medical History: No Pertinent History History: No Pertinent History Psycho-Social History: No Pertinent History Male Reproductive Disorders: Prostate Problems - Past Surgical History Past Surgical History: Yes Neuro Surgical History: No Pertinent History Cardiac: No Pertinent History Respiratory: No Pertinent History Gastrointestinal: No Pertinent History Genitourinary: No Pertinent History Musculoskeletal: No Pertinent History Male Surgical History: No Pertinent History - Social History Smoking Status: Current every day smoker How long have you smoked: 20s Exposure to second hand smoke: Yes Drug Use: none - Social Determinants of Health Will the patient participate in the screening: Declined to provide - Nursing Vital Signs Nursing Vital Signs: Initial Vital Signs Respiratory Rate 32 H 07/13/24 17:10 Pain Scale Pain Intensity 0 - Physical Exam General Appearance: no apparent distress, alert Eye Exam: PERRL/EOMI Ears, Nose, Throat Exam: hearing grossly normal Neck Exam: normal inspection, non-tender, supple, full range of motion Respiratory Exam: diminished breath sounds, accessory muscle use, rhonchi, wheezing Cardiovascular/Chest Exam: normal heart sounds, tachycardia Abdominal/Gastrointestinal Exam: soft, normal bowel sounds Extremity Exam: non-tender Neurologic Exam: alert, oriented x 3, cooperative Skin Exam: normal color SpO2 Interpretation: O2 applied SpO2: 92 O2 Delivery: Non-rebreather - Course EKG Interpreted by Me: RATE ([id number]), Sinus Tach, NORMAL AXIS, NORMAL INTERVALS, Q- wave, Non-specific ST Changes Ordered Tests: Active Orders 24 hr Category Date Time Status Order Picker/Assembler STAT Care 07/13/24 17:29 Active EKG-ER Only STAT Care 07/13/24 17:29 Active IV Insertion STAT Care 07/13/24 17:29 Active Pulse Oximetry (ED) STAT Care 07/13/24 17:29 Active CHEST 1 VIEW (PORTABLE) Stat Exams 07/13/24 17:29 Taken ARTERIAL BLOOD GASES Stat Lab 07/13/24 17:29 Completed BLOOD CULTURE Stat Lab 07/13/24 17:40 Received CBC W DIFF Stat Lab 07/13/24 17:30 Completed CMP Stat Lab 07/13/24 17:30 Completed Lactic Acid Stat Lab 07/13/24 17:29 Completed MAGNESIUM Stat Lab 07/13/24 17:30 Completed NT PRO BNPII Stat Lab 07/13/24 17:30 Completed TROPONIN Q4H Lab 07/13/24 17:30 Completed TROPONIN Q4H Lab 07/13/24 21:30 Ordered TROPONIN Q4H Lab 07/14/24 01:30 Ordered Respiratory Therapy Assessment DAILY RT 07/13/24 17:30 Active Transfer Order Routine Transfer 07/13/24 Ordered Medication Summary Discontinued Medications Generic Name Dose Route Start Last Admin Trade Name Steveq PRN Reason Stop Dose Admin Albuterol/Ipratropium Confirm 07/13/24 17:18 Ipratropium/Albuterol Sulfate 3 Ml Ampul.Neb Administered 07/13/24 17:19 Dose 3 ml IH .STK-MED ONE Albuterol/Ipratropium 3 ml 07/13/24 17:22 07/13/24 17:28 Ipratropium/Albuterol Sulfate 3 Ml Ampul.Neb IH 07/13/24 17:23 3 ml STAT ONE Administration Albuterol/Ipratropium Confirm 07/13/24 17:46 Ipratropium/Albuterol Sulfate 3 Ml Ampul.Neb Administered 07/13/24 17:47 Dose 3 ml IH .STK-MED ONE Albuterol/Ipratropium 3 ml 07/13/24 17:48 07/13/24 17:49 Ipratropium/Albuterol Sulfate 3 Ml Ampul.Neb IH 07/13/24 17:49 3 ml STAT ONE Administration Azithromycin Confirm 07/13/24 18:13 Azithromycin Inj Administered 07/13/24 18:14 Dose 500 mg IV .STK-MED ONE Methylprednisolone Sodium 0 mg 07/13/24 17:29 07/13/24 17:39 Succinate 125 mg/ Sterile IV 07/13/24 17:30 125 mg Water 2 ml STAT ONE Administration Ceftriaxone Sodium 2 gm in 100 mls @ 200 mls/hr 07/13/24 18:07 07/13/24 18:16 Rocephin 2 Gm/100 Ml Nacl IV 07/13/24 18:36 200 mls/hr STAT ONE 200 mls/hr Administration Azithromycin 500 mg/ Sodium 250 mls @ 250 mls/hr 07/13/24 18:07 07/13/24 18: 16 Chloride IV 07/13/24 19:06 250 mls/hr STAT STA 250 mls/hr Administration Sodium Chloride Confirm 07/13/24 18:13 Sodium Chloride 0.9% 250 Ml Administered 07/13/24 18:14 Dose 250 mls @ ud IV .STK-MED ONE Ceftriaxone Sodium Confirm 07/13/24 18:13 Rocephin 2 Gm/100 Ml Nacl Administered 07/13/24 18:14 Dose 2 gm in 100 mls @ ud IV .STK-MED ONE Methylprednisolone Sodium Succinate Confirm 07/13/24 17:38 Methylprednis Sod Succ 125 Mg/2 Ml Vial Administered 07/13/24 17:39 Dose 125 mg .ROUTE .STK-MED ONE Sterile Water Confirm 07/13/24 17:38 Water For Injection,Sterile 10 Ml Vial Administered 07/13/24 17:39 Dose 10 ml IJ .STK-MED ONE Lab/Rad Data: Laboratory Result Diagrams 07/13/24 17:30 07/13/24 17:30 Laboratory Results 07/13/24 07/13/24 07/13/24 Range/Units Unknown 17:30 17:30 WBC (4.23-9.07) x10^3/uL RBC (4.63-6.08) x10^6/uL Hgb (13.7-17.5) g/dL Hct (40.1-51.0) % MCV (79.0-92.2) fL MCH (25.7-32.2) pg MCHC (32.3-36.5) g/dL RDW (11.6-14.4) % Plt Count (163-337) x10^3/uL MPV (9.4-12.4) fL Gran % (34.0-67.9) % Immature Gran % (Auto) (0.001-0.429) % Nucleat RBC Rel Count (0.00-0.2) % Eos # (Auto) (0.04-0.54) x10^3/uL Immature Gran # (Auto) (0.001-0.031) x10^3u/L Absolute Lymphs (auto) (1.32-3.57) x10^3/uL Absolute Monos (auto) (0.30-0.82) x10^3/uL Absolute Nucleated RBC (0.00-0.012) x10^3u/L Lymphocytes % (21.8-53.1) % Monocytes % (5.3-12.2) % Eosinophils % (0.8-7.0) % Basophils % (0.2-1.2) % Absolute Granulocytes (1.78-5.38) x10^3/uL Basophils # (0.01-0.08) x10^3/uL Puncture Site pCO2 (35-45) mmHg pO2 (75-100) mmHg Base Excess (-2.0-2.0) O2 Saturation (94-100) g/dF ABG pH (7.35-7.45) ABG HCO3 (22-28) ABG O2 Sat (Measured) (95-100) % Mikel Test A-a Gradient a/A Ratio Hemoglobin Carboxyhemoglobin (0.0-6.9) % THgb Methemoglobin (1.4-1.5) % Potassium 4.4 (3.5-5.1) Temperature C POC O2 Flow Rate % Sodium 137 (135-145) mmol/L Chloride 87 L (98-107) mmol/L Carbon Dioxide 42 H (22-30) mmol/L Anion Gap 12.4 (5-15) MEQ/L BUN 19 (9-20) mg/dL Creatinine 0.56 L (0.66-1.25) mg/dL Estimated GFR 105.4 ML/MIN Glucose 134 H (74-106) mg/dL Lactic Acid (0.4-2.0) Calcium 8.7 (8.4-10.2) mg/dL Magnesium 1.6 (1.6-2.3) mg/dL Total Bilirubin 0.80 (0.2-1.3) mg/dL AST 39 (17-59) U/L ALT 28 (0-50) U/L Alkaline Phosphatase 81 (38-126) U/L Troponin I < 0.012 (0.000-0.033) ng/mL NT-Pro-B Natriuret Pep 328 (<300) pg/mL Serum Total Protein 7.6 (6.3-8.2) g/dL Albumin 3.9 (3.5-5.0) g/dL Influenza Type A Ag NEGATIVE (NEGATIVE) Influenza Type B Ag NEGATIVE (NEGATIVE) RSV (PCR) NEGATIVE (NEGATIVE) SARS-CoV-2 (PCR) NEGATIVE (NEGATIVE) Slides for Path Review 07/13/24 07/13/24 Range/Units 17:30 17:29 WBC 8.1 (4.23-9.07) x10^3/uL RBC 4.36 L (4.63-6.08) x10^6/uL Hgb 11.5 L (13.7-17.5) g/dL Hct 39.8 L (40.1-51.0) % MCV 91.3 (79.0-92.2) fL MCH 26.4 (25.7-32.2) pg MCHC 28.9 L (32.3-36.5) g/dL RDW 12.6 (11.6-14.4) % Plt Count 150 L (163-337) x10^3/uL MPV 9.9 (9.4-12.4) fL Gran % 82.7 H (34.0-67.9) % Immature Gran % (Auto) 0.4 (0.001-0.429) % Nucleat RBC Rel Count 0.0 (0.00-0.2) % Eos # (Auto) 0.15 (0.04-0.54) x10^3/uL Immature Gran # (Auto) 0.03 (0.001-0.031) x10^3u/L Absolute Lymphs (auto) 0.65 L (1.32-3.57) x10^3/uL Absolute Monos (auto) 0.55 (0.30-0.82) x10^3/uL Absolute Nucleated RBC 0.00 (0.00-0.012) x10^3u/L Lymphocytes % 8.0 L (21.8-53.1) % Monocytes % 6.8 (5.3-12.2) % Eosinophils % 1.9 (0.8-7.0) % Basophils % 0.2 (0.2-1.2) % Absolute Granulocytes 6.68 H (1.78-5.38) x10^3/uL Basophils # 0.02 (0.01-0.08) x10^3/uL Puncture Site LEFT BRACHIAL pCO2 80 H* (35-45) mmHg pO2 88 (75-100) mmHg Base Excess 24.1 H (-2.0-2.0) O2 Saturation 96.5 (94-100) g/dF ABG pH 7.43 (7.35-7.45) ABG HCO3 53.1 H* (22-28) ABG O2 Sat (Measured) 98.7 (95-100) % Mikel Test NOT APPLICABLE A-a Gradient 525 a/A Ratio 0.14 Hemoglobin 12.2 Carboxyhemoglobin 1.7 (0.0-6.9) % THgb Methemoglobin 0.6 L (1.4-1.5) % Potassium 4.3 (3.5-5.1) Temperature 37.0 C POC O2 Flow Rate 100 % Sodium (135-145) mmol/L Chloride (98-107) mmol/L Carbon Dioxide (22-30) mmol/L Anion Gap (5-15) MEQ/L BUN (9-20) mg/dL Creatinine (0.66-1.25) mg/dL Estimated GFR ML/MIN Glucose (74-106) mg/dL Lactic Acid 0.9 (0.4-2.0) Calcium (8.4-10.2) mg/dL Magnesium (1.6-2.3) mg/dL Total Bilirubin (0.2-1.3) mg/dL AST (17-59) U/L ALT (0-50) U/L Alkaline Phosphatase (38-126) U/L Troponin I (0.000-0.033) ng/mL NT-Pro-B Natriuret Pep (<300) pg/mL Serum Total Protein (6.3-8.2) g/dL Albumin (3.5-5.0) g/dL Influenza Type A Ag (NEGATIVE) Influenza Type B Ag (NEGATIVE) RSV (PCR) (NEGATIVE) SARS-CoV-2 (PCR) (NEGATIVE) Slides for Path Review YES - Progress Progress: improved, re-examined Air Movement: fair Progress Note: 07/13/24 19:25 69-year-old is evaluated in the ER for worsening shortness of breath and cough. Patient was in moderate distress on presentation with sats in the 70s, on placed on nonrebreather and given neb treatments x 2 along with steroid. Patient was on nonrebreather for almost half an hour, ABG showed pH of 7.4 and PCO2 of 80, PO288, recommended BiPAP which patient declined. I have put him back on 6 L after second neb treatment and he is feeling better with sats in low 90s. Chest x-ray showed bilateral airspace disease reviewed by me with pending official read. He is started on Rocephin and Zithromax. Has normal white count, chemistries fairly unremarkable with normal troponin. I believe patient has a combination of COPD exacerbation with pneumonia causing respiratory failure. I have discussed results of workup with patient and family and recommended admission which they understand and agree. Discussed with Dr. Parson, reviewed history, workup and patient would be admitted to hospitalist service. Complexity of problems addressed: High acuity Complexity of data reviewed/analyzed: Extensive Risk of complication associated with current condition: Moderate to high Blood Culture(s) Obtained: Yes Antibiotics given: Yes Discussed with : Shamar Will see patient in: hospital (observation) Counseled pt/family regarding: lab results, diagnosis, rad results, smoking cessation - Departure Departure Disposition: Observation Clinical Impression: Pneumonia, COPD with acute exacerbation Respiratory failure Qualifiers: Chronicity: acute on chronic Respiratory failure complication: hypoxia and hypercapnia Qualified Code(s): J96.21 - Acute and chronic respiratory failure with hypoxia; J96.22 - Acute and chronic respiratory failure with hypercapnia Condition: Stable Critical Care Time: Yes Critical Care Time(excluding separately billable procedures): Critical 30-74 mins Referrals: TWILA MOY MD [Primary Care Provider] - Follow up/PCP as directed Instructions: Chronic Obstructive Pulmonary Disease
[2024-07-13] MEDS: ZITHROMAX IV*** 500 MG in Sodium Chloride 0.9% 250 ML 250 ML IV STA (18:16)
[2024-07-13] MEDS: ROCEPHIN 2 GM/100 ML NACL 2 GM/100 ML IVPB IV ONE (18:16)
[2024-07-13 18:23] LABS: INFLUENZA A NEGATIVE (NEGATIVE); INFLUENZA B NEGATIVE (NEGATIVE); RESPIRATORY SYNCTIAL VIRUS NEGATIVE (NEGATIVE); SARS-CoV-2 Xpert Express NEGATIVE (NEGATIVE)
[2024-07-13 18:43] LABS: Slide Review 1 YES
[2024-07-13] MEDS ORDERED: TYLENOL 325 MG PO PRN (20:49)
--- NOTE | 2024-07-13 21:05 | PCM.HP ---
History of Present Illness - Chief Complaint Chief Complaint: shortness of breath Date: 07/13/24 History of Present Illness: 69-year-old man with history of COPD on 6 L oxygen at home, type 2 diabetes, and tobacco use, who presents with dyspnea. Patient notes that he had worsening dyspnea with some intermittent fevers for the past 3 to 4 days. Associated with worsening exertional capacity. Denies any sore throat, congestion, cough, chest pain, or leg edema. He has had some relief by his nebulizers, but he was unable to walk to his doctor's appointment and has been feeling worse overall, so he came to the ER today. Initially on arrival, his SpO2 was in the 70s, and he required a nonrebreather. Patient declined BiPAP, and his initial ABG showed a compensated chronic hypercarbia. He eventually improved after steroids and nebs, and has been weaned back down to 8 L. He is being admitted for further treatment of COPD exacerbation. Of note, patient smokes 1 pack/day. He has history of diabetes and was previously on insulin, but is not currently taking any medic ations. - Review of Systems All Other Systems: Reviewed and Negative (except as per HPI) Medications & Allergies Home Medications: Home Medication List Albuterol/Ipratropium 3ml Neb* [DUONEB 0.5-3 MG/3 ml Neb] 3 ml IH Q6HRT #1 misc 03/02/22 [Rx Confirmed 04/02/22] Fluticasone/Salmeterol 115/21 [Advair Hfa 115/21 Common canister*] 2 puff IH BIDRT #1 inhaler 03/02/22 [Rx Confirmed 07/13/24] Prednisone 10 mg [Deltasone 10 mg] 10 mg PO BID 30 Days #60 tablet 03/02/22 [Rx Confirmed 07/13/24] Prednisone 20 mg [Deltasone 20 mg] 20 mg PO DAILY #11 tablet 04/06/22 [Rx Confirmed 07/13/24] Allergies/Adverse Reactions: Allergies Allergy/AdvReac Type Severity Reaction Status Date / Time diazepam [From Valium] AdvReac Verified 07/13/24 17:15 - Past Medical History Past Medical History: Yes Neurological History: No Pertinent History ENT History: No Pertinent History Cardiac History: High Cholesterol, Myocardial Infarction ([place]) Respiratory History: COPD Endocrine Medical History: Diabetes Type II Musculoskelatal History: No Pertinent History GI Medical History: No Pertinent History History: No Pertinent History Pyscho-Social History: No Pertinent History Male Reproductive Disorders: Prostate Problems - Past Surgical History Past Surgical History: Yes Neuro Surgical History: No Pertinent History Cardiac History: No Pertinent History Respiratory Surgery: No Pertinent History GI Surgical History: No Pertinent History Genitourinary Surgical Hx: No Pertinent History Musculskeletal Surgical Hx: No Pertinent History Male Surgical History: No Pertinent History Significant Family History: no pertinent family hx - Social History Smoking Status: Current every day smoker (1 pack per day) How long have you smoked: 20s Exposure to second hand smoke: Yes Alcohol: None Drug Use: none - Social Determinants of Health Will the patient participate in the screening: Declined to provide - Physical Exam Vital Signs: Vital Signs - 24 hr Temp Pulse Resp BP BP Pulse Ox 07/13/24 20:20 97 H 24 91 L 07/13/24 20:07 96.5 F 107 H 28 H 154/69 93 L 07/13/24 19:29 92 L 07/13/24 19:01 107 H 27 H 156/97 95 07/13/24 18:31 109 H 25 H 130/40 89 L 07/13/24 18:01 100 H 29 H 122/74 90 L 07/13/24 17:51 104 H 24 92 L 07/13/24 17:50 108 H 24 98 07/13/24 17:37 105 H 24 140/81 94 L 07/13/24 17:36 107 H 28 H 91 L 07/13/24 17:32 106 H 26 H 07/13/24 17:29 79 L 07/13/24 17:14 97.6 F 107 H 32 H 146/74 88 L 07/13/24 17:13 75 L 07/13/24 17:12 70 L 07/13/24 17:10 32 H Physical Exam GEN: Sitting up in bed in no acute distress. HENT: Normocephalic, atraumatic. Moist mucous membranes. EYES: Normal inspection, anicteric sclera, extraocular movements intact. NECK: Supple, full range of motion CV: Regular rate and rhythm, no murmurs, no gallops. No JVD or edema. PULM: End expiratory wheezing at the bilateral bases. Moving air well overall. On 8 L oxygen via Oxymizer nasal cannula. ABD: Nondistended, nontender. MSK: No joint effusions, full range of motion SKIN: No rashes, normal color. NEURO: Face symmetric, no focal motor or sensory deficits. PSYCH: Alert, oriented x 3 Results - Labs Lab/Micro Results: Lab Results-Last 24 Hours 07/13/24 07/13/24 07/13/24 Range/Units 17:29 17:30 17:30 WBC 8.1 (4.23-9.07) x10^3/uL RBC 4.36 L (4.63-6.08) x10^6/uL Hgb 11.5 L (13.7-17.5) g/dL Hct 39.8 L (40.1-51.0) % MCV 91.3 (79.0-92.2) fL MCH 26.4 (25.7-32.2) pg MCHC 28.9 L (32.3-36.5) g/dL RDW 12.6 (11.6-14.4) % Plt Count 150 L (163-337) x10^3/uL MPV 9.9 (9.4-12.4) fL Gran % 82.7 H (34.0-67.9) % Immature Gran % (Auto) 0.4 (0.001-0.429) % Nucleat RBC Rel Count 0.0 (0.00-0.2) % Eos # (Auto) 0.15 (0.04-0.54) x10^3/uL Immature Gran # (Auto) 0.03 (0.001-0.031) x10^3u/L Absolute Lymphs (auto) 0.65 L (1.32-3.57) x10^3/uL Absolute Monos (auto) 0.55 (0.30-0.82) x10^3/uL Absolute Nucleated RBC 0.00 (0.00-0.012) x10^3u/L Lymphocytes % 8.0 L (21.8-53.1) % Monocytes % 6.8 (5.3-12.2) % Eosinophils % 1.9 (0.8-7.0) % Basophils % 0.2 (0.2-1.2) % Absolute Granulocytes 6.68 H (1.78-5.38) x10^3/uL Basophils # 0.02 (0.01-0.08) x10^3/uL Puncture Site LEFT BRACHIAL pCO2 80 H* (35-45) mmHg pO2 88 (75-100) mmHg Base Excess 24.1 H (-2.0-2.0) O2 Saturation 96.5 (94-100) g/dF ABG pH 7.43 (7.35-7.45) ABG HCO3 53.1 H* (22-28) ABG O2 Sat (Measured) 98.7 (95-100) % Mikel Test NOT APPLICABLE A-a Gradient 525 a/A Ratio 0.14 Hemoglobin 12.2 Carboxyhemoglobin 1.7 (0.0-6.9) % THgb Methemoglobin 0.6 L (1.4-1.5) % Potassium 4.3 4.4 (3.5-5.1) Temperature 37.0 C POC O2 Flow Rate 100 % Sodium 137 (135-145) mmol/L Chloride 87 L (98-107) mmol/L Carbon Dioxide 42 H (22-30) mmol/L Anion Gap 12.4 (5-15) MEQ/L BUN 19 (9-20) mg/dL Creatinine 0.56 L (0.66-1.25) mg/dL Estimated GFR 105.4 ML/MIN Glucose 134 H (74-106) mg/dL Lactic Acid 0.9 (0.4-2.0) Calcium 8.7 (8.4-10.2) mg/dL Magnesium 1.6 (1.6-2.3) mg/dL Total Bilirubin 0.80 (0.2-1.3) mg/dL AST 39 (17-59) U/L ALT 28 (0-50) U/L Alkaline Phosphatase 81 (38-126) U/L Troponin I (0.000-0.033) ng/mL NT-Pro-B Natriuret Pep (<300) pg/mL Serum Total Protein 7.6 (6.3-8.2) g/dL Albumin 3.9 (3.5-5.0) g/dL Influenza Type A Ag (NEGATIVE) Influenza Type B Ag (NEGATIVE) RSV (PCR) (NEGATIVE) SARS-CoV-2 (PCR) (NEGATIVE) Slides for Path Review YES 07/13/24 07/13/24 Range/Units 17:30 Unknown WBC (4.23-9.07) x10^3/uL RBC (4.63-6.08) x10^6/uL Hgb (13.7-17.5) g/dL Hct (40.1-51.0) % MCV (79.0-92.2) fL MCH (25.7-32.2) pg MCHC (32.3-36.5) g/dL RDW (11.6-14.4) % Plt Count (163-337) x10^3/uL MPV (9.4-12.4) fL Gran % (34.0-67.9) % Immature Gran % (Auto) (0.001-0.429) % Nucleat RBC Rel Count (0.00-0.2) % Eos # (Auto) (0.04-0.54) x10^3/uL Immature Gran # (Auto) (0.001-0.031) x10^3u/L Absolute Lymphs (auto) (1.32-3.57) x10^3/uL Absolute Monos (auto) (0.30-0.82) x10^3/uL Absolute Nucleated RBC (0.00-0.012) x10^3u/L Lymphocytes % (21.8-53.1) % Monocytes % (5.3-12.2) % Eosinophils % (0.8-7.0) % Basophils % (0.2-1.2) % Absolute Granulocytes (1.78-5.38) x10^3/uL Basophils # (0.01-0.08) x10^3/uL Puncture Site pCO2 (35-45) mmHg pO2 (75-100) mmHg Base Excess (-2.0-2.0) O2 Saturation (94-100) g/dF ABG pH (7.35-7.45) ABG HCO3 (22-28) ABG O2 Sat (Measured) (95-100) % Mikel Test A-a Gradient a/A Ratio Hemoglobin Carboxyhemoglobin (0.0-6.9) % THgb Methemoglobin (1.4-1.5) % Potassium (3.5-5.1) Temperature C POC O2 Flow Rate % Sodium (135-145) mmol/L Chloride (98-107) mmol/L Carbon Dioxide (22-30) mmol/L Anion Gap (5-15) MEQ/L BUN (9-20) mg/dL Creatinine (0.66-1.25) mg/dL Estimated GFR ML/MIN Glucose (74-106) mg/dL Lactic Acid (0.4-2.0) Calcium (8.4-10.2) mg/dL Magnesium (1.6-2.3) mg/dL Total Bilirubin (0.2-1.3) mg/dL AST (17-59) U/L ALT (0-50) U/L Alkaline Phosphatase (38-126) U/L Troponin I < 0.012 (0.000-0.033) ng/mL NT-Pro-B Natriuret Pep 328 (<300) pg/mL Serum Total Protein (6.3-8.2) g/dL Albumin (3.5-5.0) g/dL Influenza Type A Ag NEGATIVE (NEGATIVE) Influenza Type B Ag NEGATIVE (NEGATIVE) RSV (PCR) NEGATIVE (NEGATIVE) SARS-CoV-2 (PCR) NEGATIVE (NEGATIVE) Slides for Path Review - Radiology Impressions Radiology Exams & Impressions: Radiology Procedures Category Date Time Status CHEST 1 VIEW (PORTABLE) Stat Exams 07/13/24 17:29 Taken Chest x-ray chronic scarring at the bilateral bases, but compared to prior x- ray in April 2022, has a new right lower lobe infiltrate. Of note, image does not include the left costophrenic angle and portion of the left base, so could be missing other infiltrates. (Images personally reviewed) - Other Procedures and Tests Respiratory Therapy 07/13/24 20:19 Oxygen Oxymizer LPM 8 lpm Respiratory Therapy Assessment DAILY 07/14/24 20:00 Smoking Cessation Education ONCE Assessment/Plan (1) COPD with acute exacerbation Current Visit: Yes Status: Acute Assessment & Plan: 69-year-old man with history of COPD on 6 L home oxygen, type 2 diabetes, and tobacco use, here with COPD exacerbation from pneumonia, with acute on chronic hypoxic respiratory failure. ## COPD with acute exacerbation evidence of severe chronic COPD with baseline bicarb around 42 and 6 L home oxygen use. As well, the fact that he has a compensated pH with a pCO2 of 80 indicates severe chronic CO2 retention. Although he appears to have been in severe respiratory distress on arrival to the ED, he is currently moving air fairly well, and is close to approaching his baseline oxygen use again. Trigger was likely pneumonia. Cover pneumonia with Rocephin and azithromycin Follow-up blood cultures Prednisone 40 mg p.o. daily DuoNeb q.4 hours PRN dyspnea ## Acute on chronic hypoxic and hypercapnic respiratory failure patient is chronically on 6 L oxygen, at 1 point required nonrebreather, but currently weaned back down to 8 L. He also has chronic CO2 retention, but this appears to be compensated. Wean oxygen to maintain SpO2 between 91 and 94% ## Type 2 diabetes patient was previously on insulin, but denies using any currently. On arrival his glucose was moderately controlled at 134. However, I expect the sugars to rise due to steroid use. Place on moderate dose sliding scale insulin Check hemoglobin A1c in the morning ## Tobacco use smokes 1 pack/day. Patient declined nicotine patch Counseled on smoking cessation CODE STATUS: Full code Prophylaxis: Lovenox 40 mg daily Diet: Diabetic Dispo: Place in observation, expect discharge to home in 24 to 48 hours Entirety of encounter took place via live audio/video telemedicine device, with remote physician and patient in hospital, with the assistance of bedside nurse. Code(s): J44.1 - CHRONIC OBSTRUCTIVE PULMONARY DISEASE W (ACUTE) EXACERBATION (2) Pneumonia Current Visit: Yes Status: Acute Code(s): J18.9 - PNEUMONIA, UNSPECIFIED ORGANISM (3) Respiratory failure Current Visit: Yes Status: Acute Qualifiers: Chronicity: acute on chronic Respiratory failure complication: hypoxia and hypercapnia Qualified Code(s): J96.21 - Acute and chronic respiratory failure with hypoxia; J96.22 - Acute and chronic respiratory failure with hypercapnia Code(s): J96.90 - RESPIRATORY FAILURE, UNSP, UNSP W HYPOXIA OR HYPERCAPNIA Telemedicine Encounter - Telemedicine Encounter Telemedicine Encounter: "The entirety of this encounter was performed via Telemedicine" This visit was performed using real-time audio and video connection between my location and thepatients locationwith the assistance of a surrogateat the patients location. Written or verbal consent was obtained from the patient/guardian to perform this visit usingsynchronoustelemedicine technology. Any patient questions regarding the telemedicine interaction were answered.
[2024-07-13] MEDS: HUMALOG SQ PRN (22:42)
[2024-07-14] MEDS: DUONEB 0.5-3 MG/3 ml Neb IH SCH (00:54)
[2024-07-14 04:56] LABS: Hematocrit 44.8 % (40.1-51.0); Hemoglobin 12.6 g/dL (13.7-17.5); Mean Cell Volume 93.7 fL (79.0-92.2); Mean Corpuscular Hemoglobin 26.4 pg (25.7-32.2); Mean Corpuscular Hgb Concent. 28.1 g/dL (32.3-36.5); Mean Platelet Volume 9.6 fL (9.4-12.4); Platelet Count 175 x10^3/uL (163-337); Red Blood Count 4.78 x10^6/uL (4.63-6.08); Red Cell Distribution Width 12.6 % (11.6-14.4); White Blood Count 7.2 x10^3/uL (4.23-9.07)
[2024-07-14 05:11] LABS: Calcium 9.1 mg/dL (8.4-10.2); Creatinine 1 0.63 mg/dL (0.66-1.25); EST GLOMERULAR FILTRATION RATE 101.7 ML/MIN; Potassium 4.1 mmol/L (3.5-5.1)
[2024-07-14 05:26] LABS: ANION GAP 19.1 MEQ/L (5-15)
[2024-07-14 05:33] LABS: Slide Review YES
[2024-07-14] MEDS: Advair Hfa 115/21 Common canister IH SCH (07:20)
--- NOTE | 2024-07-14 08:51 | XRAY ---
Indication: Short of breath. COPD. Comparison: April 23, 2022 Portable chest again hyperinflated with a few tiny calcified granulomas. New bilateral mid to lower lung interstitial alveolar opacities favoring pneumonia/pneumonitis. No consolidation/large effusion. Heart not enlarged. Bony thorax intact again with osteopenia and old right 7 rib fracture.
[2024-07-14] MEDS: DELTASONE 20 MG PO SCH (09:28)
[2024-07-14] MEDS: ENOXAPARIN SODIUM SQ SCH (09:29)
--- NOTE | 2024-07-14 10:48 | PCM.NOTE ---
Date and Time: 07/14/24 1042 Subjective Assessment: The patient is a 69-year-old man with a history of COPD on 6L oxygen at home, type 2 diabetes, and ongoing tobacco use (1 pack/day). He presented on 07/13 with worsening dyspnea over the past 34 days, along with intermittent fevers and decreased exertional capacity. He denied sore throat, congestion, cough, chest pain, or leg swelling. Although he experienced some relief with nebulizer treatments, his symptoms progressed to the point that he was unable to attend a scheduled doctors appointment, prompting his visit to the ER. On arrival, his oxygen saturation was in the 70s, requiring a non-rebreather mask. He declined BiPAP, and an initial ABG revealed compensated chronic hypercarbia. His respiratory status improved with steroids and nebulizer therapy, and he has since been weaned down to 8L oxygen. He is being admitted for management of a COPD exacerbation, likely complicated by pneumonia. IV antibiotics were initiated, and blood cultures are pending. The patient is currently stable on 10L oxygen with SpO2 at 90%, close to his baseline of 6L nasal cannula. He denies chest pain, abdominal pain, nausea, vomiting, or diarrhea. He also has a history of diabetes but is not currently on any medications. - Review of Systems Constitutional: No Fever, No Chills Eyes: No Symptoms Ears, Nose, & Throat: No Symptoms Respiratory: Short Of Breath, Wheezing, No Cough Cardiac: No Chest Pain, No Edema, No Syncope Abdominal/Gastrointestinal: No Abdominal Pain, No Nausea, No Vomiting, No Diarrhea Genitourinary Symptoms: No Dysuria Musculoskeletal: No Back Pain, No Neck Pain Skin: No Rash Neurological: No Dizziness, No Focal Weakness, No Sensory Changes Psychological: No Symptoms Endocrine: No Symptoms Hematologic/Lymphatic: No Symptoms Immunological/Allergic: No Symptoms Objective Exam General Appearance: no apparent distress, alert Neurologic Exam: alert, oriented x 3, cooperative, normal mood/affect, nml cerebellar function, sensation nml, No motor deficits Skin Exam: normal color, warm, dry Eye Exam: PERRL, EOMI, eyes nml inspection Ears, Nose, Throat Exam: normal ENT inspection, pharynx normal, moist mucous membranes Neck Exam: normal inspection, non-tender, supple, full range of motion Respiratory Exam: crackles/rales, No respiratory distress Cardiovascular Exam: regular rate/rhythm, normal heart sounds Gastrointestinal/Abdomen Exam: soft, No tenderness, No mass Extremity Exam: normal inspection, normal range of motion Back Exam: normal inspection, normal range of motion, No CVA tenderness, No vertebral tenderness Male Genitalia Exam: deferred Rectal Exam: deferred Objective Data Vital Signs: Vital Signs - 24 hr Temp Pulse Resp BP BP Pulse Ox 07/14/24 07:50 97.7 F 93 H 18 152/66 93 L 07/14/24 07:42 91 L 07/14/24 07:23 81 24 93 L 07/14/24 03:54 97.5 F 75 18 161/70 91 L 07/14/24 00:54 87 24 85 L 07/13/24 23:28 97.0 F 91 H 24 149/65 93 L 07/13/24 20:20 97 H 24 91 L 07/13/24 20:07 96.5 F 107 H 28 H 154/69 93 L 07/13/24 19:29 92 L 07/13/24 19:01 107 H 27 H 156/97 95 07/13/24 18:31 109 H 25 H 130/40 89 L 07/13/24 18:01 100 H 29 H 122/74 90 L 07/13/24 17:51 104 H 24 92 L 07/13/24 17:50 108 H 24 98 07/13/24 17:37 105 H 24 140/81 94 L 07/13/24 17:36 107 H 28 H 91 L 07/13/24 17:32 106 H 26 H 07/13/24 17:29 79 L 07/13/24 17:14 97.6 F 107 H 32 H 146/74 88 L 07/13/24 17:13 75 L 07/13/24 17:12 70 L 07/13/24 17:10 32 H Pain Assessment - Last Documented Pain Intensity 0 Intake and Output: Intake & Output 07/11/24 07/12/24 07/13/24 07/14/24 11:59 11:59 11:59 11:59 Intake Total 820 Output Total 800 Balance 20 Weight 94.5 kg Lab Results: Lab Results-Last 24 Hours 07/13/24 07/13/24 07/13/24 Range/Units 17:29 17:30 17:30 WBC 8.1 (4.23-9.07) x10^3/uL RBC 4.36 L (4.63-6.08) x10^6/uL Hgb 11.5 L (13.7-17.5) g/dL Hct 39.8 L (40.1-51.0) % MCV 91.3 (79.0-92.2) fL MCH 26.4 (25.7-32.2) pg MCHC 28.9 L (32.3-36.5) g/dL RDW 12.6 (11.6-14.4) % Plt Count 150 L (163-337) x10^3/uL MPV 9.9 (9.4-12.4) fL Gran % 82.7 H (34.0-67.9) % Immature Gran % (Auto) 0.4 (0.001-0.429) % Nucleat RBC Rel Count 0.0 (0.00-0.2) % Eos # (Auto) 0.15 (0.04-0.54) x10^3/uL Immature Gran # (Auto) 0.03 (0.001-0.031) x10^3u/L Absolute Lymphs (auto) 0.65 L (1.32-3.57) x10^3/uL Absolute Monos (auto) 0.55 (0.30-0.82) x10^3/uL Absolute Nucleated RBC 0.00 (0.00-0.012) x10^3u/L Lymphocytes % 8.0 L (21.8-53.1) % Monocytes % 6.8 (5.3-12.2) % Eosinophils % 1.9 (0.8-7.0) % Basophils % 0.2 (0.2-1.2) % Absolute Granulocytes 6.68 H (1.78-5.38) x10^3/uL Basophils # 0.02 (0.01-0.08) x10^3/uL Puncture Site LEFT BRACHIAL pCO2 80 H* (35-45) mmHg pO2 88 (75-100) mmHg Base Excess 24.1 H (-2.0-2.0) O2 Saturation 96.5 (94-100) g/dF ABG pH 7.43 (7.35-7.45) ABG HCO3 53.1 H* (22-28) ABG O2 Sat (Measured) 98.7 (95-100) % Mikel Test NOT APPLICABLE A-a Gradient 525 a/A Ratio 0.14 Hemoglobin 12.2 Carboxyhemoglobin 1.7 (0.0-6.9) % THgb Methemoglobin 0.6 L (1.4-1.5) % Potassium 4.3 4.4 (3.5-5.1) Temperature 37.0 C POC O2 Flow Rate 100 % Sodium 137 (135-145) mmol/L Chloride 87 L (98-107) mmol/L Carbon Dioxide 42 H (22-30) mmol/L Anion Gap 12.4 (5-15) MEQ/L BUN 19 (9-20) mg/dL Creatinine 0.56 L (0.66-1.25) mg/dL Estimated GFR 105.4 ML/MIN Glucose 134 H (74-106) mg/dL POC Glucometer (74 to 106) mg/dL Hemoglobin A1c (4.5-6.0) % Lactic Acid 0.9 (0.4-2.0) Calcium 8.7 (8.4-10.2) mg/dL Magnesium 1.6 (1.6-2.3) mg/dL Total Bilirubin 0.80 (0.2-1.3) mg/dL AST 39 (17-59) U/L ALT 28 (0-50) U/L Alkaline Phosphatase 81 (38-126) U/L Troponin I (0.000-0.033) ng/mL NT-Pro-B Natriuret Pep (<300) pg/mL Serum Total Protein 7.6 (6.3-8.2) g/dL Albumin 3.9 (3.5-5.0) g/dL Influenza Type A Ag (NEGATIVE) Influenza Type B Ag (NEGATIVE) RSV (PCR) (NEGATIVE) SARS-CoV-2 (PCR) (NEGATIVE) Slides for Path Review YES 07/13/24 07/13/24 07/13/24 Range/Units 17:30 22:30 Unknown WBC (4.23-9.07) x10^3/uL RBC (4.63-6.08) x10^6/uL Hgb (13.7-17.5) g/dL Hct (40.1-51.0) % MCV (79.0-92.2) fL MCH (25.7-32.2) pg MCHC (32.3-36.5) g/dL RDW (11.6-14.4) % Plt Count (163-337) x10^3/uL MPV (9.4-12.4) fL Gran % (34.0-67.9) % Immature Gran % (Auto) (0.001-0.429) % Nucleat RBC Rel Count (0.00-0.2) % Eos # (Auto) (0.04-0.54) x10^3/uL Immature Gran # (Auto) (0.001-0.031) x10^3u/L Absolute Lymphs (auto) (1.32-3.57) x10^3/uL Absolute Monos (auto) (0.30-0.82) x10^3/uL Absolute Nucleated RBC (0.00-0.012) x10^3u/L Lymphocytes % (21.8-53.1) % Monocytes % (5.3-12.2) % Eosinophils % (0.8-7.0) % Basophils % (0.2-1.2) % Absolute Granulocytes (1.78-5.38) x10^3/uL Basophils # (0.01-0.08) x10^3/uL Puncture Site pCO2 (35-45) mmHg pO2 (75-100) mmHg Base Excess (-2.0-2.0) O2 Saturation (94-100) g/dF ABG pH (7.35-7.45) ABG HCO3 (22-28) ABG O2 Sat (Measured) (95-100) % Mikel Test A-a Gradient a/A Ratio Hemoglobin Carboxyhemoglobin (0.0-6.9) % THgb Methemoglobin (1.4-1.5) % Potassium (3.5-5.1) Temperature C POC O2 Flow Rate % Sodium (135-145) mmol/L Chloride (98-107) mmol/L Carbon Dioxide (22-30) mmol/L Anion Gap (5-15) MEQ/L BUN (9-20) mg/dL Creatinine (0.66-1.25) mg/dL Estimated GFR ML/MIN Glucose (74-106) mg/dL POC Glucometer 187 H (74 to 106) mg/dL Hemoglobin A1c (4.5-6.0) % Lactic Acid (0.4-2.0) Calcium (8.4-10.2) mg/dL Magnesium (1.6-2.3) mg/dL Total Bilirubin (0.2-1.3) mg/dL AST (17-59) U/L ALT (0-50) U/L Alkaline Phosphatase (38-126) U/L Troponin I < 0.012 (0.000-0.033) ng/mL NT-Pro-B Natriuret Pep 328 (<300) pg/mL Serum Total Protein (6.3-8.2) g/dL Albumin (3.5-5.0) g/dL Influenza Type A Ag NEGATIVE (NEGATIVE) Influenza Type B Ag NEGATIVE (NEGATIVE) RSV (PCR) NEGATIVE (NEGATIVE) SARS-CoV-2 (PCR) NEGATIVE (NEGATIVE) Slides for Path Review 07/14/24 07/14/24 07/14/24 Range/Units 04:49 04:49 04:49 WBC 7.2 (4.23-9.07) x10^3/uL RBC 4.78 (4.63-6.08) x10^6/uL Hgb 12.6 L (13.7-17.5) g/dL Hct 44.8 (40.1-51.0) % MCV 93.7 H (79.0-92.2) fL MCH 26.4 (25.7-32.2) pg MCHC 28.1 L (32.3-36.5) g/dL RDW 12.6 (11.6-14.4) % Plt Count 175 (163-337) x10^3/uL MPV 9.6 (9.4-12.4) fL Gran % (34.0-67.9) % Immature Gran % (Auto) (0.001-0.429) % Nucleat RBC Rel Count (0.00-0.2) % Eos # (Auto) (0.04-0.54) x10^3/uL Immature Gran # (Auto) (0.001-0.031) x10^3u/L Absolute Lymphs (auto) (1.32-3.57) x10^3/uL Absolute Monos (auto) (0.30-0.82) x10^3/uL Absolute Nucleated RBC (0.00-0.012) x10^3u/L Lymphocytes % (21.8-53.1) % Monocytes % (5.3-12.2) % Eosinophils % (0.8-7.0) % Basophils % (0.2-1.2) % Absolute Granulocytes (1.78-5.38) x10^3/uL Basophils # (0.01-0.08) x10^3/uL Puncture Site pCO2 (35-45) mmHg pO2 (75-100) mmHg Base Excess (-2.0-2.0) O2 Saturation (94-100) g/dF ABG pH (7.35-7.45) ABG HCO3 (22-28) ABG O2 Sat (Measured) (95-100) % Mikel Test A-a Gradient a/A Ratio Hemoglobin Carboxyhemoglobin (0.0-6.9) % THgb Methemoglobin (1.4-1.5) % Potassium 4.1 (3.5-5.1) Temperature C POC O2 Flow Rate % Sodium 139 (135-145) mmol/L Chloride 86 L (98-107) mmol/L Carbon Dioxide 38 H (22-30) mmol/L Anion Gap 19.1 H (5-15) MEQ/L BUN 16 (9-20) mg/dL Creatinine 0.63 L (0.66-1.25) mg/dL Estimated GFR 101.7 ML/MIN Glucose 125 H (74-106) mg/dL POC Glucometer (74 to 106) mg/dL Hemoglobin A1c 5.63 (4.5-6.0) % Lactic Acid (0.4-2.0) Calcium 9.1 (8.4-10.2) mg/dL Magnesium (1.6-2.3) mg/dL Total Bilirubin (0.2-1.3) mg/dL AST (17-59) U/L ALT (0-50) U/L Alkaline Phosphatase (38-126) U/L Troponin I (0.000-0.033) ng/mL NT-Pro-B Natriuret Pep (<300) pg/mL Serum Total Protein (6.3-8.2) g/dL Albumin (3.5-5.0) g/dL Influenza Type A Ag (NEGATIVE) Influenza Type B Ag (NEGATIVE) RSV (PCR) (NEGATIVE) SARS-CoV-2 (PCR) (NEGATIVE) Slides for Path Review YES 07/14/24 Range/Units 07:36 WBC (4.23-9.07) x10^3/uL RBC (4.63-6.08) x10^6/uL Hgb (13.7-17.5) g/dL Hct (40.1-51.0) % MCV (79.0-92.2) fL MCH (25.7-32.2) pg MCHC (32.3-36.5) g/dL RDW (11.6-14.4) % Plt Count (163-337) x10^3/uL MPV (9.4-12.4) fL Gran % (34.0-67.9) % Immature Gran % (Auto) (0.001-0.429) % Nucleat RBC Rel Count (0.00-0.2) % Eos # (Auto) (0.04-0.54) x10^3/uL Immature Gran # (Auto) (0.001-0.031) x10^3u/L Absolute Lymphs (auto) (1.32-3.57) x10^3/uL Absolute Monos (auto) (0.30-0.82) x10^3/uL Absolute Nucleated RBC (0.00-0.012) x10^3u/L Lymphocytes % (21.8-53.1) % Monocytes % (5.3-12.2) % Eosinophils % (0.8-7.0) % Basophils % (0.2-1.2) % Absolute Granulocytes (1.78-5.38) x10^3/uL Basophils # (0.01-0.08) x10^3/uL Puncture Site pCO2 (35-45) mmHg pO2 (75-100) mmHg Base Excess (-2.0-2.0) O2 Saturation (94-100) g/dF ABG pH (7.35-7.45) ABG HCO3 (22-28) ABG O2 Sat (Measured) (95-100) % Mikel Test A-a Gradient a/A Ratio Hemoglobin Carboxyhemoglobin (0.0-6.9) % THgb Methemoglobin (1.4-1.5) % Potassium (3.5-5.1) Temperature C POC O2 Flow Rate % Sodium (135-145) mmol/L Chloride (98-107) mmol/L Carbon Dioxide (22-30) mmol/L Anion Gap (5-15) MEQ/L BUN (9-20) mg/dL Creatinine (0.66-1.25) mg/dL Estimated GFR ML/MIN Glucose (74-106) mg/dL POC Glucometer 142 H (74 to 106) mg/dL Hemoglobin A1c (4.5-6.0) % Lactic Acid (0.4-2.0) Calcium (8.4-10.2) mg/dL Magnesium (1.6-2.3) mg/dL Total Bilirubin (0.2-1.3) mg/dL AST (17-59) U/L ALT (0-50) U/L Alkaline Phosphatase (38-126) U/L Troponin I (0.000-0.033) ng/mL NT-Pro-B Natriuret Pep (<300) pg/mL Serum Total Protein (6.3-8.2) g/dL Albumin (3.5-5.0) g/dL Influenza Type A Ag (NEGATIVE) Influenza Type B Ag (NEGATIVE) RSV (PCR) (NEGATIVE) SARS-CoV-2 (PCR) (NEGATIVE) Slides for Path Review Radiology Exams: Radiology Procedures Category Date Time Status CHEST 1 VIEW (PORTABLE) Stat Exams 07/13/24 17:29 Completed Medications: Medications Generic Name Dose Route Start Last Admin Trade Name Freq PRN Reason Stop Dose Admin Acetaminophen 650 mg 07/13/24 20:49 Acetaminophen 325 Mg Tablet PO 08/12/24 20:48 Q6H PRN PRN PAIN AND/OR FEVER Albuterol/Ipratropium 3 ml 07/13/24 20:49 Ipratropium/Albuterol Sulfate 3 Ml Ampul.Neb 08/12/24 20:48 Q4HPRN PRN SHORTNESS OF BREATH/WHEEZING Albuterol/Ipratropium 3 ml 07/14/24 01:00 07/14/24 07:16 Ipratropium/Albuterol Sulfate 3 Ml Ampul.[facility] 08/13/24 00:59 3 ml Q6HRT MANJULA Administration Enoxaparin Sodium 40 mg 07/14/24 10:00 07/14/24 09:29 Enoxaparin Sodium 40 Mg/0.4 Ml Syringe SQ 08/13/24 09:59 40 mg DAILY MANJULA Administration Ceftriaxone Sodium 1 gm in 100 mls @ 200 mls/hr 07/14/24 18:00 Rocephin 1 Gm / 100 Ml Nacl IV 07/18/24 17:59 Q24H10 MANJULA Azithromycin 500 mg/ Sodium 250 mls @ 250 mls/hr 07/14/24 18:00 Chloride IV 07/17/24 17:59 Q24H10 MANJULA Insulin Human Lispro 0 unit 07/13/24 20:49 07/13/24 22:42 Insulin Lispro 1 Unit SQ 08/12/24 20:48 3 unit UD PRN Administration HYPERGLYCEMIA Prednisone 40 mg 07/14/24 10:00 07/14/24 09:28 Prednisone 20 Mg Tablet PO 08/13/24 09:59 40 mg DAILY MANJULA Administration Fluticasone/Salmeterol 2 puff 07/14/24 07:00 07/14/24 07:20 Fluticasone/Salmeterol 115/21 60 Puff Aer.W.Adap IH 08/13/24 06:59 2 puff BIDRT MANJULA Administration Discontinued Medications Generic Name Dose Route Start Last Admin Trade Name Freq PRN Reason Stop Dose Admin Albuterol/Ipratropium Confirm 07/13/24 17:18 Ipratropium/Albuterol Sulfate 3 Ml Ampul.Neb Administered 07/13/24 17:19 Dose 3 ml IH .STK-MED ONE Albuterol/Ipratropium 3 ml 07/13/24 17:22 07/13/24 17:28 Ipratropium/Albuterol Sulfate 3 Ml Ampul.Neb IH 07/13/24 17:23 3 ml STAT ONE Administration Albuterol/Ipratropium Confirm 07/13/24 17:46 Ipratropium/Albuterol Sulfate 3 Ml Ampul.Neb Administered 07/13/24 17:47 Dose 3 ml IH .STK-MED ONE Albuterol/Ipratropium 3 ml 07/13/24 17:48 07/13/24 17:49 Ipratropium/Albuterol Sulfate 3 Ml Ampul.Neb IH 07/13/24 17:49 3 ml STAT ONE Administration Azithromycin Confirm 07/13/24 18:13 Azithromycin Inj Administered 07/13/24 18:14 Dose 500 mg IV .STK-MED ONE Methylprednisolone Sodium 0 mg 07/13/24 17:29 07/13/24 17:39 Succinate 125 mg/ Sterile IV 07/13/24 17:30 125 mg Water 2 ml STAT ONE Administration Ceftriaxone Sodium 2 gm in 100 mls @ 200 mls/hr 07/13/24 18:07 07/13/24 19:38 Rocephin 2 Gm/100 Ml Nacl IV 07/13/24 18:36 Infused STAT ONE Infusion Azithromycin 500 mg/ Sodium 250 mls @ 250 mls/hr 07/13/24 18:07 07/13/24 19:38 Chloride IV 07/13/24 19:06 Infused STAT STA Infusion Sodium Chloride Confirm 07/13/24 18:13 Sodium Chloride 0.9% 250 Ml Administered 07/13/24 18:14 Dose 250 mls @ ud IV .STK-MED ONE Ceftriaxone Sodium Confirm 07/13/24 18:13 Rocephin 2 Gm/100 Ml Nacl Administered 07/13/24 18:14 Dose 2 gm in 100 mls @ ud IV .STK-MED ONE Methylprednisolone Sodium Succinate Confirm 07/13/24 17:38 Methylprednis Sod Succ 125 Mg/2 Ml Vial Administered 07/13/24 17:39 Dose 125 mg .ROUTE .STK-MED ONE Sterile Water Confirm 07/13/24 17:38 Water For Injection,Sterile 10 Ml Vial Administered 07/13/24 17:39 Dose 10 ml IJ .STK-MED ONE Multi-Disciplinary Progress Notes: Multi-Disciplinary Progress Notes 07/14/24 10:02 Case Management Note by Berta Jules Addendum entered by Berta Jules 07/14/24 10:25: [facility] HAS ACCEPTED Original Note: REFERRAL SENT TO [facility]. THEY WILL NEED NOTIFIED AT TIME OF DC AT [phone]. THEY WILL NEED FAXED THE DC INSTRUCTIONS, DC MED LIST AND DC SUMMARY TO [phone] Initialized on 07/14/24 10:02 - END OF NOTE 07/14/24 00:55 Respiratory Note by Ariadna Busatmante Oxygen increased to 12L oxymizer due to SpO2 of 85% on 8L. Increased to maintain SpO2>90%. Initialized on 07/14/24 00:55 - END OF NOTE Assessment/Plan (1) Pneumonia Current Visit: Yes Status: Acute Assessment & Plan: - CXR: Portable chest again hyperinflated with a few tiny calcified granulomas. New bilateral mid to lower lung interstitial alveolar opacities favoring pneumonia/pneumonitis. No consolidation/large effusion. Heart not enlarged. Bony thorax intact again with osteopenia and old right 7 rib fracture - IV antibiotics, steroids, duonebs, advair - 10L oxymizer 90% - Baseline 6lNC 88-90% - CBC. CMP reviewed. - BC x2 pending Code(s): J18.9 - PNEUMONIA, UNSPECIFIED ORGANISM (2) Acute on chronic respiratory failure with hypoxia and hypercapnia Current Visit: Yes Status: Acute Assessment & Plan: Patient is chronically on 6 L oxygen, at 1 point required nonrebreather, but currently weaned back down to 10 L. - He also has chronic CO2 retention, but this appears to be compensated per ABG results Code(s): J96.21 - ACUTE AND CHRONIC RESPIRATORY FAILURE WITH HYPOXIA; J96.22 - ACUTE AND CHRONIC RESPIRATORY FAILURE WITH HYPERCAPNIA (3) COPD with acute exacerbation Current Visit: Yes Status: Acute Assessment & Plan: Cover pneumonia with Rocephin and azithromycin Follow-up blood cultures Prednisone 40 mg p.o. daily DuoNeb q.4 hours PRN dyspnea - Advair - 10 oxymizer 90% Code(s): J44.1 - CHRONIC OBSTRUCTIVE PULMONARY DISEASE W (ACUTE) EXACERBATION (4) Diabetes mellitus Current Visit: No Status: Chronic Qualifiers: Diabetes mellitus type: type 2 Diabetes mellitus jail insulin use: without jail use Diabetes mellitus complication status: without complication Qualified Code(s): E11.9 - Type 2 diabetes mellitus without complications Assessment & Plan: - Not currently taking meds OP - A1C 5.63- controlled - TYpe II - Moderate dose sliding scale insulin - Accuchecks ac/hs Code(s): E11.9 - TYPE 2 DIABETES MELLITUS WITHOUT COMPLICATIONS (5) Tobacco use disorder Current Visit: Yes Status: Chronic Assessment & Plan: - Advised cessation- education provided - Pt states he stopped 4 days ago - Refuses nicotine patch CODE STATUS: Full code Prophylaxis: Lovenox 40 mg daily PPI: Protonix Diet: Diabetic Dispo: Place in observation, expect discharge to home in 24 to 48 hours Next of KIN: Child- July Abhay [phone] Code(s): F17.200 - NICOTINE DEPENDENCE, UNSPECIFIED, UNCOMPLICATED
[2024-07-14] MEDS: DUONEB 0.5-3 MG/3 ml Neb IH PRN (11:17)
[2024-07-14] MEDS: ZITHROMAX IV*** 500 MG in Sodium Chloride 0.9% 250 ML 250 ML IV SCH (17:12)
[2024-07-14] MEDS: ROCEPHIN 1 GM / 100 ML NaCl 1 GM/100 ML IVPB IV SCH (18:30)
[2024-07-15 05:27] LABS: Hematocrit 40.5 % (40.1-51.0); Hemoglobin 11.3 g/dL (13.7-17.5); Mean Corpuscular Hemoglobin 26.2 pg (25.7-32.2); Mean Corpuscular Hgb Concent. 27.9 g/dL (32.3-36.5); Mean Platelet Volume 9.5 fL (9.4-12.4); Platelet Count 169 x10^3/uL (163-337); Red Blood Count 4.31 x10^6/uL (4.63-6.08); Red Cell Distribution Width 12.4 % (11.6-14.4); White Blood Count 8.1 x10^3/uL (4.23-9.07)
[2024-07-15 05:42] LABS: ALBUMIN 3.6 g/dL (3.5-5.0); BILIRUBIN,TOTAL 0.3 mg/dL (0.2-1.3); Creatinine 1 0.84 mg/dL (0.66-1.25); EST GLOMERULAR FILTRATION RATE 93.2 ML/MIN; Potassium 4.4 mmol/L (3.5-5.1); Total Protein 7.3 g/dL (6.3-8.2)
[2024-07-15 06:53] LABS: ANION GAP 14.4 MEQ/L (5-15)
[2024-07-15 07:28] VITALS: RESP 22
--- NOTE | 2024-07-15 07:49 | PCM.DS ---
Discharge Summary Date of Admission: 07/13/24 19:49 Date of Discharge: 07/15/24 Admitting Physician: MARY PRAJAPATI MD Primary Care Provider: TWILA MOY Allergies Allergies diazepam [From Valium] Adverse Reaction (Verified 07/13/24 17:15) Hospital Summary - Hospital Course Hospital Course: 07/14/24 The patient is a 69-year-old man with a history of COPD on 6L oxygen at home, type 2 diabetes, and ongoing tobacco use (1 pack/day). He presented on 07/13 with worsening dyspnea over the past 34 days, along with intermittent fevers and decreased exertional capacity. He denied sore throat, congestion, cough, chest pain, or leg swelling. Although he experienced some relief with nebulizer treatments, his symptoms progressed to the point that he was unable to attend a scheduled doctors appointment, prompting his visit to the ER. On arrival, his oxygen saturation was in the 70s, requiring a non-rebreather mask. He declined BiPAP, and an initial ABG revealed compensated chronic hypercarbia. His respiratory status improved with steroids and nebulizer therapy, and he has since been weaned down to 8L oxygen. He is being admitted for management of a COPD exacerbation, likely complicated by pneumonia. IV antibiotics were initiated, and blood cultures are pending. The patient is currently stable on 10L oxygen with SpO2 at 90%, close to his baseline of 6L nasal cannula. He denies chest pain, abdominal pain, nausea, vomiting, or diarrhea. He also has a history of diabetes but is not currently on any medications. 07/15/24 Pt resting in bed. He reports he is feeling much better. Lung sounds have overall improved and he now has occasional wheezing. He is currently on oxymizer 8LNC at 94%. Baseline is 6LNC. NUrsing to wean O@ and walk pt around the unit. If he is able to tolerate this he can d/c today. He denies CP, Adb. pain, N/V/D. - Vitals & Intake/Output Vital Signs: Vital Signs Temperature 96.8 F 07/15/24 07:24 Pulse Rate 95 H 07/15/24 07:26 Respiratory Rate 22 07/15/24 07:26 Blood Pressure 143/76 07/15/24 07:24 O2 Sat by Pulse Oximetry 94 L 07/15/24 07:26 Intake & Output: Intake & Output 07/12/24 07/13/24 07/14/24 07/15/24 11:59 11:59 11:59 11:59 Intake Total 820 1130 Output Total 800 400 Balance 20 730 Weight 94.5 kg - Lab Result Diagrams: 07/15/24 05:22 07/15/24 05:22 Lab Results-Last 24 Hrs: Lab Results-Last 24 Hours 07/14/24 07/14/24 07/14/24 Range/Units 12:01 16:29 22:21 WBC (4.23-9.07) x10^3/uL RBC (4.63-6.08) x10^6/uL Hgb (13.7-17.5) g/dL Hct (40.1-51.0) % MCV (79.0-92.2) fL MCH (25.7-32.2) pg MCHC (32.3-36.5) g/dL RDW (11.6-14.4) % Plt Count (163-337) x10^3/uL MPV (9.4-12.4) fL Sodium (135-145) mmol/L Potassium (3.5-5.1) mmol/L Chloride (98-107) mmol/L Carbon Dioxide (22-30) mmol/L Anion Gap (5-15) MEQ/L BUN (9-20) mg/dL Creatinine (0.66-1.25) mg/dL Estimated GFR ML/MIN Glucose (74-106) mg/dL POC Glucometer 134 H 140 H 147 H (74 to 106) mg/dL Calcium (8.4-10.2) mg/dL Total Bilirubin (0.2-1.3) mg/dL AST (17-59) U/L ALT (0-50) U/L Alkaline Phosphatase (38-126) U/L Serum Total Protein (6.3-8.2) g/dL Albumin (3.5-5.0) g/dL 07/15/24 07/15/24 07/15/24 Range/Units 05:22 05:22 07:16 WBC 8.1 (4.23-9.07) x10^3/uL RBC 4.31 L (4.63-6.08) x10^6/uL Hgb 11.3 L (13.7-17.5) g/dL Hct 40.5 (40.1-51.0) % MCV 94.0 H (79.0-92.2) fL MCH 26.2 (25.7-32.2) pg MCHC 27.9 L (32.3-36.5) g/dL RDW 12.4 (11.6-14.4) % Plt Count 169 (163-337) x10^3/uL MPV 9.5 (9.4-12.4) fL Sodium 142 (135-145) mmol/L Potassium 4.4 (3.5-5.1) mmol/L Chloride 91 L (98-107) mmol/L Carbon Dioxide 41 H (22-30) mmol/L Anion Gap 14.4 (5-15) MEQ/L BUN 20 (9-20) mg/dL Creatinine 0.84 (0.66-1.25) mg/dL Estimated GFR 93.2 ML/MIN Glucose 114 H (74-106) mg/dL POC Glucometer 105 (74 to 106) mg/dL Calcium 9.0 (8.4-10.2) mg/dL Total Bilirubin 0.30 (0.2-1.3) mg/dL AST 30 (17-59) U/L ALT 26 (0-50) U/L Alkaline Phosphatase 65 (38-126) U/L Serum Total Protein 7.3 (6.3-8.2) g/dL Albumin 3.6 (3.5-5.0) g/dL Micro Results-Entire Visit: Accuchecks Date 07/15/24 Date 07/14/24 Date 07/14/24 Time 07:22 Time 16:31 Time 12:09 - Radiology Exams Ordered Rad Exams-Entire Visit: Radiology Procedures Category Date Time Status CHEST 1 VIEW (PORTABLE) Stat Exams 07/13/24 17:29 Completed - Procedures and Test Procedures and Tests throughout Hospitalization: Therapy Orders & Screens 07/13/24 17:30 Respiratory Therapy Assessment DAILY Comment: 07/13/24 19:52 Respiratory Therapy Consult ONCE Comment: Reason For Exam: 07/13/24 20:19 Oxygen Oxymizer LPM 8 lpm Comment: Respiratory Therapy Assessment DAILY Comment: 07/13/24 20:49 Respiratory Therapy Consult ONCE Comment: Reason For Exam: Diagnosis: pnuemonia/copd 07/13/24 20:54 Respiratory MDI UD Comment: Diagnosis: pnuemonia/copd 07/14/24 10:00 RT Screen per Nursing Assess ONCE Comment: Protocol Order Physician Instructions: Greater than 3 points order RT Admission Screen Reason For Exam: Triggered on Admission Diagnosis: pnuemonia/copd Diagnosis: pnuemonia/copd Pneumonia: Yes Home O2: Yes: 6L Asthma: No CHF: No Home CPAP/BIPAP: No Home Nebs/MDI: Yes Total Points: 13 ST Screen per Nursing Assess ONCE Comment: Protocol Order Physician Instructions: Greater than [address] Admission Screening Reason For Exam: Triggered on Admission Diagnosis: pnuemonia/copd CVA/Dysphagia/Aphasia: No Cognitive Deficits: No Dehydration/Nutrition Deficit: No Reflux: No Oral-Motor Difficulties: No Pneumonia: Yes Jail Resident: No Total Points: 5 07/14/24 20:00 Smoking Cessation Education ONCE Comment: Diagnosis: pnuemonia/copd Smoking Status: Current every day smoker How long have you smoked: 20s Have you smoked in the past 12 months: Yes Approximately how many cigarettes per day: 20 Do you dip or chew tobacco: No Discharge Exam General Appearance: no apparent distress, alert Neurologic Exam: alert, oriented x 3, cooperative, normal mood/affect, nml cerebellar function, sensation nml, No motor deficits Eye Exam: PERRL, EOMI, eyes nml inspection Ears, Nose, Throat Exam: normal ENT inspection, pharynx normal, moist mucous membranes Neck Exam: normal inspection, non-tender, supple, full range of motion Respiratory Exam: wheezing, No respiratory distress Cardiovascular Exam: regular rate/rhythm, normal heart sounds Gastrointestinal/Abdomen Exam: soft, No tenderness, No mass Male Genitalia Exam: deferred Rectal Exam: deferred Back Exam: normal inspection, normal range of motion, No CVA tenderness, No vertebral tenderness Extremity Exam: normal inspection, normal range of motion Skin Exam: normal color, warm, dry Final Diagnosis/Problem List - Final Discharge Diagnosis/Problem (1) Pneumonia Current Visit: Yes Status: Acute Code(s): J18.9 - PNEUMONIA, UNSPECIFIED ORGANISM (2) Acute on chronic respiratory failure with hypoxia and hypercapnia Current Visit: Yes Status: Acute Code(s): J96.21 - ACUTE AND CHRONIC RESPIRATORY FAILURE WITH HYPOXIA; J96.22 - ACUTE AND CHRONIC RESPIRATORY FAILURE WITH HYPERCAPNIA (3) COPD with acute exacerbation Current Visit: Yes Status: Acute Code(s): J44.1 - CHRONIC OBSTRUCTIVE PULMONARY DISEASE W (ACUTE) EXACERBATION (4) Diabetes mellitus Current Visit: No Status: Chronic Code(s): E11.9 - TYPE 2 DIABETES MELLITUS WITHOUT COMPLICATIONS (5) Tobacco use disorder Current Visit: Yes Status: Chronic Assessment & Plan: (1) Pneumonia Current Visit: Yes Status: Acute Assessment & Plan: - CXR: Portable chest again hyperinflated with a few tiny calcified granulomas. New bilateral mid to lower lung interstitial alveolar opacities favoring pneumonia/pneumonitis. No consolidation/large effusion. Heart not enlarged. Bony thorax intact again with osteopenia and old right 7 rib fracture - IV antibiotics, steroids, duonebs, advair - 10L oxymizer 90% - Baseline 6lNC 88-90% - CBC. CMP reviewed. - BC x2 pending 07/15 - On 8L oxymizer- wean to 6L BL - Pt to walk halls today - Lung sounds improved overall Code(s): J18.9 - PNEUMONIA, UNSPECIFIED ORGANISM (2) Acute on chronic respiratory failure with hypoxia and hypercapnia Current Visit: Yes Status: Acute Assessment & Plan: Patient is chronically on 6 L oxygen, at 1 point required nonrebreather, but currently weaned back down to 10 L. - He also has chronic CO2 retention, but this appears to be compensated per ABG results Code(s): J96.21 - ACUTE AND CHRONIC RESPIRATORY FAILURE WITH HYPOXIA; J96.22 - ACUTE AND CHRONIC RESPIRATORY FAILURE WITH HYPERCAPNIA (3) COPD with acute exacerbation Current Visit: Yes Status: Acute Assessment & Plan: Cover pneumonia with Rocephin and azithromycin Follow-up blood cultures Prednisone 40 mg p.o. daily DuoNeb q.4 hours PRN dyspnea - Advair - 10 oxymizer 90% Code(s): J44.1 - CHRONIC OBSTRUCTIVE PULMONARY DISEASE W (ACUTE) EXACERBATION (4) Diabetes mellitus Current Visit: No Status: Chronic Qualifiers: Diabetes mellitus type: type 2 Diabetes mellitus detention insulin use: without detention use Diabetes mellitus complication status: without c omplication Qualified Code(s): E11.9 - Type 2 diabetes mellitus without c omplications Assessment & Plan: - Not currently taking meds OP - A1C 5.63- controlled - Type II - Moderate dose sliding scale insulin - Accuchecks ac/hs Code(s): E11.9 - TYPE 2 DIABETES MELLITUS WITHOUT COMPLICATIONS (5) Tobacco use disorder Current Visit: Yes Status: Chronic Assessment & Plan: - Advised cessation- education provided - Pt states he stopped 4 days ago - Refuses nicotine patch Code(s): F17.200 - NICOTINE DEPENDENCE, UNSPECIFIED, UNCOMPLICATED - Discharge Discharge Date: 07/15/24 Disposition: Home, Self-Care Condition: Stable Prescriptions: Continue Fluticasone/Salmeterol 115/21 [Advair Hfa 115/21 Common canister*] 2 puff IH BIDRT #1 inhaler Albuterol/Ipratropium 3ml Neb* [DUONEB 0.5-3 MG/3 ml Neb] 3 ml IH Q6HRT #1 misc Prednisone 10 mg [Deltasone 10 mg] 10 mg PO BID 30 Days #60 tablet Prednisone 20 mg [Deltasone 20 mg] 20 mg PO DAILY #11 tablet Additional Instructions: [facility] HAS BEEN SET UP FOR YOU. THEY WILL CALL YOU WITHIN A DAY OR TWO OF DISCHARGE TO ARRANGE A TIME TO COME SEE YOU. IF YOU NEED ANYTHING BEFORE THEY CONTACT YOU, YOU CAN REACH THEM AT [phone] Follow up with: TWILA MOY MD [Primary Care Provider] -
[2024-07-15 11:25] VITALS: BP 167/72; PULSE 83; TEMP 97.5; O2SAT 98
[2024-07-15] MEDS ORDERED: Protonix 20MG Tablet PO SCH (11:30)
== END 2024-07-15 12:05 | disposition home or self-care (01) ==
LOC: ED 17:04 → MED SURG 19:49
PROVIDERS: ADMIT Internal Medicine; ATTEND Internal Medicine
DX: J18.9 Pneumonia, unspecified organism (principal); J44.1 Chronic obstructive pulmonary disease with (acute) exacerbation; J96.22 Acute and chronic respiratory failure with hypercapnia; E11.9 Type 2 diabetes mellitus without complications; J96.21 Acute and chronic respiratory failure with hypoxia; Z72.0 Tobacco use; Z99.81 Dependence on supplemental oxygen; R05.9 Cough, unspecified; Z79.899 Other long term (current) drug therapy
CPT/HCPCS: 0241U; 36415; 36600; 71045; 80048; 80053; 82375; 82803; 82947; 83036; 83605; 83735; 83880; 84484; 85025; 85027; 87040; 93005; 93041; 93268; 94640; 94760; 94762; 96374; 99285; G0378; Q3014; 99284; 99291; J0456; J0696; J1650; J1817; J2919; A9270-GY